=== PATIENT | female | born 1940 | race Caucasian/White ===

== ENCOUNTER 2018-05-18 11:01 | Emergency (ER) | payer MEDICARE, OTHER ==
[~2018-05-18] VITALS: Ht 152.4 cm; Wt 48.5 kg
[~2018-05-18 11:01] MED LIST: ALLO300 PO; ASPI81CH PO; AZIT250 PO; Bactrim Ds Tab1 EACH PO; CEPH500 PO; CHOL10002 PO; COLCHICINE0.6 MG PO; DIAZ2 PO; DIAZ5 PO; ESOM20 PO; IBUP600; LEVSOD100 PO; LEVSOD88 PO; LISI20 PO; METO5A PO; Macrodantin100 MG PO; Multivitamin1 EAC1 PO; NEXIUM PO; Nexium40 MG PO; OMEP20ER PO; OXYACE5T PO; OXYC5 PO; Omeprazole20 M1; PANT40 PO; PEG-3350 SOLU4000 ML PO; PROM25 PO; Roxicodone15 MG PO; Roxicodone5 MG PO; SILSUL1TC TOP; SUCR1SU PO; SULTRIDS PO; THYROID; TRAM50 PO; Ultram50 MG PO; Zofran Odt8 MG SL; Zofran8 MG PO; [UNRECOGNIZED DRUG - CODE] PO
== END 2018-05-18 12:50 | disposition home or self-care (01) ==
LOC: ER 11:01
DX: M79.642 Pain in left hand (principal); I25.10 Atherosclerotic heart disease of native coronary artery without angina pectoris; E03.9 Hypothyroidism, unspecified; Z88.6 Allergy status to analgesic agent; Z79.899 Other long term (current) drug therapy; Z86.73 Personal history of transient ischemic attack (TIA), and cerebral infarction without residual deficits
CPT/HCPCS: 29125; 73130; 84484; 93005; 93010; 99284-25

== ENCOUNTER 2018-06-20 19:41 | Emergency (ER) | payer MEDICARE, OTHER ==
[~2018-06-20] VITALS: Ht 152.4 cm; Wt 41.7 kg
[2018-06-20 20:38] LABS: BASOPHILS ABSOLUTE AUTO 0.08 K/mm3 (0.00-0.23); BASOPHILS PERCENT AUTO 1 % (0-2); EOSINOPHILS ABSOLUTE AUTO 0.08 K/mm3 (0.00-0.68); EOSINOPHILS PERCENT AUTO 1 % (0-6); Hematocrit 38.4 % (33.0-51.0); Hemoglobin 12.2 g/dL (11.5-16.0); IMMATURE GRAN ABSOLUTE AUTO 0.06 K/mm3 (0.00-0.10); IMMATURE GRAN PERCENT AUTO 1 % (0-1); LYMPHOCYTES ABSOLUTE AUTO 2.34 K/mm3 (0.84-5.20); LYMPHOCYTES PERCENT AUTO 19 % (21-46); MONOCYTES PERCENT AUTO 8 % (4-13); Mean Corpuscular HGB 28.7 pg (26.0-34.0); Mean Corpuscular HGB Conc 31.8 g/dL (31.5-36.5); Mean Corpuscular Volume 90 fL (80-100); Mean Platelet Volume 10.3 fL (9.1-12.4); NEUTROPHILS PERCENT AUTO 71 % (41-73); Platelet Count 311 K/mm3 (150-400); RDW Coefficient Variation 13.1 % (11.7-14.2); RDW Standard Deviation 42.9 fL (35.1-46.3); Red Blood Cell Count 4.25 M/mm3 (3.80-5.20); White Blood Cell Count 12.26 K/mm3 (4.00-11.30)
[2018-06-20 20:51] LABS: Alanine Aminotransfer (ALT/SGP 18 U/L (12-78); Albumin, Blood 3.3 g/dL (3.4-5.0); Albumin/Globulin Ratio 1.1 (0.8-1.8); Alk Phos 73 U/L (50-136); Anion Gap 11 mmol/L (6-16); Aspartate Aminotrans (AST/SGOT 21 U/L (12-37); Bilirubin, Total 0.3 mg/dL (0.1-1.0); Blood Urea Nitrogen 14 mg/dL (8-24); Bun/Creatinine Ratio 14.1 (12.0-20.0); CO2, Blood 21 mmol/L (21-32); Chloride, Blood 107 mmol/L (98-108); Creatinine, Blood 0.99 mg/dL (0.40-1.00); Globulin, Blood 3.1 g/dL (2.2-4.0); Glomerular Filtration Rate 57 (60-); Glucose, Blood 108 mg/dL (70-99); Potassium, Blood 3.7 mmol/L (3.5-5.5); Sodium, Blood 139 mmol/L (136-145); Total Protein, Blood 6.4 g/dL (6.4-8.2); Troponin I <0.015 ng/mL (0.000-0.040)
[2018-06-20 21:51] LABS: Source, Urine Catheter
[2018-06-20 21:53] LABS: Bilirubin, Urine Neg (Neg); Blood, Urine Neg (Neg); Glucose Qualitative, Urine Neg (Neg); Ketones, Urine Neg (Neg); Leukocyte Esterase, Urine Neg (Neg); Nitrite, Urine Neg (Neg); Protein, Urine Neg (Neg); Specific Gravity, Urine 1.015 (1.003-1.022); Urobilinogen, Urine NORM (Normal); pH, Urine 6.5 (5.0-8.0)
[2018-06-20 22:04] LABS: Appearance, Urine Clear (Clear); Color, Urine Yellow (P-Yellow)
[2018-06-21] MEDS ORDERED: ONDA4ODT MM (18:05)
[2018-06-21] MEDS ORDERED: TYLENOL325 MG PO (18:05)
== END 2018-06-20 23:12 | disposition home or self-care (01) ==
LOC: ER 19:41
PROVIDERS: Emergency Medicine
DX: R07.9 Chest pain, unspecified (principal); I25.10 Atherosclerotic heart disease of native coronary artery without angina pectoris; E03.9 Hypothyroidism, unspecified; Z88.6 Allergy status to analgesic agent; Z79.899 Other long term (current) drug therapy; Z86.73 Personal history of transient ischemic attack (TIA), and cerebral infarction without residual deficits
CPT/HCPCS: 71046; 80053; 81003; 84484; 85025; 93005; 93010; 99284-25

== ENCOUNTER 2018-10-06 16:56 | Emergency (ER) | payer MEDICARE, OTHER ==
[~2018-10-06] VITALS: Ht 152.4 cm; Wt 41.7 kg
[~2018-10-06 16:56] MED LIST changes: +ONDA4ODT MM; +TYLENOL325 MG PO
[2018-10-06 17:51] LABS: BASOPHILS ABSOLUTE AUTO 0.06 K/mm3 (0.00-0.23); BASOPHILS PERCENT AUTO 1 % (0-2); EOSINOPHILS ABSOLUTE AUTO 0.15 K/mm3 (0.00-0.68); EOSINOPHILS PERCENT AUTO 2 % (0-6); Hemoglobin 11.4 g/dL (11.5-16.0); IMMATURE GRAN ABSOLUTE AUTO 0.03 K/mm3 (0.00-0.10); IMMATURE GRAN PERCENT AUTO 0 % (0-1); LYMPHOCYTES ABSOLUTE AUTO 2.31 K/mm3 (0.84-5.20); LYMPHOCYTES PERCENT AUTO 26 % (21-46); MONOCYTES PERCENT AUTO 11 % (4-13); Mean Corpuscular HGB 28.1 pg (26.0-34.0); Mean Corpuscular HGB Conc 31.7 g/dL (31.5-36.5); Mean Corpuscular Volume 89 fL (80-100); NEUTROPHILS ABSOLUTE AUTO 5.25 K/mm3 (1.96-9.15); NEUTROPHILS PERCENT AUTO 60 % (41-73); RDW Coefficient Variation 12.5 % (11.7-14.2); RDW Standard Deviation 41.3 fL (35.1-46.3); Red Blood Cell Count 4.05 M/mm3 (3.80-5.20)
[2018-10-06 17:54] LABS: Source, Urine Catheter
[2018-10-06 18:02] LABS: Alanine Aminotransfer (ALT/SGP 11 U/L (12-78); Albumin, Blood 2.5 g/dL (3.4-5.0); Albumin/Globulin Ratio 0.6 (0.8-1.8); Alk Phos 72 U/L (50-136); Anion Gap 6 mmol/L (6-16); Aspartate Aminotrans (AST/SGOT 24 U/L (12-37); Bilirubin, Total 0.3 mg/dL (0.1-1.0); Blood Urea Nitrogen 11 mg/dL (8-24); Bun/Creatinine Ratio 12.7 (12.0-20.0); CO2, Blood 26 mmol/L (21-32); Calcium, Blood 8.7 mg/dL (8.5-10.1); Chloride, Blood 107 mmol/L (98-108); Creatinine, Blood 0.87 mg/dL (0.40-1.00); Globulin, Blood 3.9 g/dL (2.2-4.0); Glomerular Filtration Rate >60 (60-); Glucose, Blood 114 mg/dL (70-99); Sodium, Blood 139 mmol/L (136-145); Total Protein, Blood 6.4 g/dL (6.4-8.2)
[2018-10-06 18:04] LABS: Appearance, Urine Clear (Clear); Bilirubin, Urine Neg (Neg); Blood, Urine Neg (Neg); Color, Urine Yellow (P-Yellow); Glucose Qualitative, Urine Neg (Neg); Ketones, Urine Neg (Neg); Leukocyte Esterase, Urine Neg (Neg); Nitrite, Urine Neg (Neg); Protein, Urine Neg (Neg); Urobilinogen, Urine NORM (Normal)
[2018-10-06 18:06] LABS: Mean Platelet Volume 10.4 fL (9.1-12.4); Platelet Count 353 K/mm3 (150-400)
== END 2018-10-06 20:41 | disposition home or self-care (01) ==
LOC: ER 16:56
PROVIDERS: Emergency Medicine
DX: M10.9 Gout, unspecified (principal); Z88.8 Allergy status to other drugs, medicaments and biological substances; Z79.899 Other long term (current) drug therapy; K21.9 Gastro-esophageal reflux disease without esophagitis; I25.2 Old myocardial infarction
CPT/HCPCS: 80053; 81003; 85025; 93005; 93010; 96361; 96374; 96375; 96376; 99284-25; J1885; J3010; J7030; P9612

== ENCOUNTER 2018-10-28 07:31 | Emergency (ER) | payer MEDICARE, OTHER ==
[~2018-10-28] VITALS: Ht 154.9 cm; Wt 41.7 kg
[2018-10-28 08:37] LABS: BASOPHILS ABSOLUTE AUTO 0.06 K/mm3 (0.00-0.23); BASOPHILS PERCENT AUTO 1 % (0-2); EOSINOPHILS ABSOLUTE AUTO 0.11 K/mm3 (0.00-0.68); EOSINOPHILS PERCENT AUTO 1 % (0-6); Hematocrit 35.6 % (33.0-51.0); IMMATURE GRAN ABSOLUTE AUTO 0.03 K/mm3 (0.00-0.10); IMMATURE GRAN PERCENT AUTO 0 % (0-1); LYMPHOCYTES ABSOLUTE AUTO 1.55 K/mm3 (0.84-5.20); LYMPHOCYTES PERCENT AUTO 17 % (21-46); MONOCYTES ABSOLUTE AUTO 0.69 K/mm3 (0.16-1.47); MONOCYTES PERCENT AUTO 8 % (4-13); Mean Corpuscular HGB 27.7 pg (26.0-34.0); Mean Corpuscular HGB Conc 30.9 g/dL (31.5-36.5); Mean Corpuscular Volume 90 fL (80-100); Mean Platelet Volume 9.7 fL (9.1-12.4); NEUTROPHILS ABSOLUTE AUTO 6.71 K/mm3 (1.96-9.15); NEUTROPHILS PERCENT AUTO 73 % (41-73); Platelet Count 295 K/mm3 (150-400); Red Blood Cell Count 3.97 M/mm3 (3.80-5.20); White Blood Cell Count 9.15 K/mm3 (4.00-11.30)
[2018-10-28 08:58] LABS: Albumin, Blood 2.8 g/dL (3.4-5.0); Albumin/Globulin Ratio 0.8 (0.8-1.8); Bilirubin, Total 0.5 mg/dL (0.1-1.0); Bun/Creatinine Ratio 6.9 (12.0-20.0); Calcium, Blood 8.8 mg/dL (8.5-10.1); Creatinine, Blood 1.02 mg/dL (0.40-1.00); Globulin, Blood 3.5 g/dL (2.2-4.0); Potassium, Blood 3.2 mmol/L (3.5-5.5); Total Protein, Blood 6.3 g/dL (6.4-8.2)
[2018-10-28] MEDS ORDERED: Omeprazole20 M1 PO (09:40)
[2018-10-28 10:45] LABS: Source, Urine Clean Catch
[2018-10-28 10:50] LABS: Appearance, Urine Cloudy (Clear); Bilirubin, Urine Neg (Neg); Blood, Urine 1+ (Neg); Color, Urine Yellow (P-Yellow); Glucose Qualitative, Urine Neg (Neg); Ketones, Urine Neg (Neg); Leukocyte Esterase, Urine 3+ (Neg); Nitrite, Urine Neg (Neg); Protein, Urine Neg (Neg); Specific Gravity, Urine 1.015 (1.003-1.022); Urobilinogen, Urine NORM (Normal)
[2018-10-28 11:05] LABS: Bacteria Many /hpf; Red Blood Cells, Urine 0-2 /hpf (0-2); Squamous Epithelial Cells Many /hpf (Few)
== END 2018-10-28 12:31 | disposition home or self-care (01) ==
LOC: ER 07:31
PROVIDERS: Physician Assistant
DX: M16.11 Unilateral primary osteoarthritis, right hip (principal); M17.11 Unilateral primary osteoarthritis, right knee; Z88.8 Allergy status to other drugs, medicaments and biological substances; Z79.899 Other long term (current) drug therapy; K21.9 Gastro-esophageal reflux disease without esophagitis; I25.2 Old myocardial infarction
CPT/HCPCS: 36415; 73502; 73562-RT; 73700; 80053; 81001; 82550; 85025; 87077; 87086; 87186; 93005; 93010; 96374; 96375; 96376; 99284-25; J1170; J2270; J2405

== ENCOUNTER 2018-10-29 05:51 | Observation (INO) | payer MEDICARE, OTHER ==
[~2018-10-29] VITALS: Ht 157.5 cm; Wt 45.9 kg
[~2018-10-29 05:51] MED LIST changes: +Omeprazole20 M1 PO
[2018-10-29 07:24] LABS: Source, Urine Catheter
[2018-10-29 07:28] LABS: Appearance, Urine Hazy (Clear); Bilirubin, Urine Neg (Neg); Blood, Urine 2+ (Neg); Color, Urine Yellow (P-Yellow); Glucose Qualitative, Urine Neg (Neg); Ketones, Urine 1+ (Neg); Leukocyte Esterase, Urine 1+ (Neg); Nitrite, Urine Neg (Neg); Protein, Urine Neg (Neg); Specific Gravity, Urine 1.015 (1.003-1.022); Urobilinogen, Urine NORM (Normal)
[2018-10-29 07:40] LABS: BASOPHILS ABSOLUTE AUTO 0.05 K/mm3 (0.00-0.23); BASOPHILS PERCENT AUTO 1 % (0-2); EOSINOPHILS ABSOLUTE AUTO 0.01 K/mm3 (0.00-0.68); EOSINOPHILS PERCENT AUTO 0 % (0-6); Hematocrit 36.2 % (33.0-51.0); Hemoglobin 11.4 g/dL (11.5-16.0); IMMATURE GRAN ABSOLUTE AUTO 0.05 K/mm3 (0.00-0.10); IMMATURE GRAN PERCENT AUTO 1 % (0-1); LYMPHOCYTES ABSOLUTE AUTO 1.19 K/mm3 (0.84-5.20); LYMPHOCYTES PERCENT AUTO 14 % (21-46); MONOCYTES ABSOLUTE AUTO 1.01 K/mm3 (0.16-1.47); MONOCYTES PERCENT AUTO 12 % (4-13); Mean Corpuscular HGB 27.7 pg (26.0-34.0); Mean Corpuscular HGB Conc 31.5 g/dL (31.5-36.5); Mean Corpuscular Volume 88 fL (80-100); Mean Platelet Volume 9.8 fL (9.1-12.4); NEUTROPHILS ABSOLUTE AUTO 6.39 K/mm3 (1.96-9.15); NEUTROPHILS PERCENT AUTO 73 % (41-73); Platelet Count 300 K/mm3 (150-400); RDW Coefficient Variation 13.9 % (11.7-14.2); RDW Standard Deviation 45.1 fL (35.1-46.3); Red Blood Cell Count 4.11 M/mm3 (3.80-5.20)
[2018-10-29 07:58] LABS: Alanine Aminotransfer (ALT/SGP 16 U/L (12-78); Albumin, Blood 2.6 g/dL (3.4-5.0); Albumin/Globulin Ratio 0.7 (0.8-1.8); Alk Phos 85 U/L (50-136); Anion Gap 6 mmol/L (6-16); Aspartate Aminotrans (AST/SGOT 39 U/L (12-37); Bilirubin, Total 0.7 mg/dL (0.1-1.0); Blood Urea Nitrogen 12 mg/dL (8-24); CO2, Blood 29 mmol/L (21-32); Calcium, Blood 8.9 mg/dL (8.5-10.1); Chloride, Blood 105 mmol/L (98-108); Creatinine, Blood 0.92 mg/dL (0.40-1.00); Globulin, Blood 3.6 g/dL (2.2-4.0); Glomerular Filtration Rate >60 (60-); Glucose, Blood 104 mg/dL (70-99); Potassium, Blood 3.8 mmol/L (3.5-5.5); Sodium, Blood 140 mmol/L (136-145); Total Protein, Blood 6.2 g/dL (6.4-8.2)
[2018-10-29 08:08] LABS: Bacteria Many /hpf; Squamous Epithelial Cells Few /hpf (Few)
--- NOTE | 2018-10-29 15:26 | NUR ---
On 10/29/18 @8010 this patient gave this nursing care partner verbal consent to access chart as well as care for her on 10/30/18 from [id number]
[2018-10-30 05:06] LABS: BASOPHILS ABSOLUTE AUTO 0.04 K/mm3 (0.00-0.23); BASOPHILS PERCENT AUTO 0 % (0-2); EOSINOPHILS ABSOLUTE AUTO 0.02 K/mm3 (0.00-0.68); EOSINOPHILS PERCENT AUTO 0 % (0-6); Hematocrit 32.2 % (33.0-51.0); IMMATURE GRAN ABSOLUTE AUTO 0.05 K/mm3 (0.00-0.10); IMMATURE GRAN PERCENT AUTO 1 % (0-1); LYMPHOCYTES ABSOLUTE AUTO 1.24 K/mm3 (0.84-5.20); LYMPHOCYTES PERCENT AUTO 11 % (21-46); MONOCYTES ABSOLUTE AUTO 1.06 K/mm3 (0.16-1.47); MONOCYTES PERCENT AUTO 10 % (4-13); Mean Corpuscular HGB 27.5 pg (26.0-34.0); Mean Corpuscular HGB Conc 31.1 g/dL (31.5-36.5); Mean Corpuscular Volume 89 fL (80-100); Mean Platelet Volume 10.2 fL (9.1-12.4); NEUTROPHILS ABSOLUTE AUTO 8.46 K/mm3 (1.96-9.15); NEUTROPHILS PERCENT AUTO 78 % (41-73); Platelet Count 284 K/mm3 (150-400); RDW Standard Deviation 45.6 fL (35.1-46.3); Red Blood Cell Count 3.63 M/mm3 (3.80-5.20); White Blood Cell Count 10.87 K/mm3 (4.00-11.30)
--- NOTE | 2018-10-30 05:07 | NUR ---
ORCHARD PRUNER SUMMARY NO ACUTE CHANGES THIS SHIFT. PT AAOX3 AND COOPERATIVE WITH CARE. VERY PAINFUL IN BILATERAL LEGS, ESPECIALLY THE KNEES. PT REPORTS PAIN IS CAUSED BY FALL SHE HAD AT HOME. GIVEN OXYCODONE X2 THIS SHIFT WITH GOOD PAIN RELIEF. PAIN PREVENTS PT FROM AMBULATING. ROLDNA IN PLACE, PATENT AND DRAINING. VSS, WILL CONTINUE TO MONITOR.
[2018-10-30 05:30] LABS: Anion Gap 5 mmol/L (6-16); Blood Urea Nitrogen 10 mg/dL (8-24); Bun/Creatinine Ratio 12.7 (12.0-20.0); CO2, Blood 29 mmol/L (21-32); Calcium, Blood 8.3 mg/dL (8.5-10.1); Chloride, Blood 103 mmol/L (98-108); Creatinine, Blood 0.79 mg/dL (0.40-1.00); Glomerular Filtration Rate >60 (60-); Glucose, Blood 124 mg/dL (70-99); Potassium, Blood 3.8 mmol/L (3.5-5.5); Sodium, Blood 137 mmol/L (136-145)
--- NOTE | 2018-10-30 15:42 | NUR ---
Mrs. Ladd was alone in room. She appears quite frail and physically fragile. She told me she is hospitalized "because I fell." She says she lives in constant pain. Per chart, she is listed as Quaker, but she declined my offer of prayer. Once I established rapport, I broached the subject of her code status. She stated "if God wants to take me, let me go." She says she does not want CPR and is not afraid of . I presented the question of code status in several ways. She remained consistant--she does not want CPR. Iasked RN to verify. At that point, Mrs. Ladd reversed her decision. Perhaps this topic would be better discussed with family present. I will remain available.
--- NOTE | 2018-10-30 20:33 | NUR ---
SUMMARY- PT ALERT TO SELF AND FAMILY. FOLLOWS COMMANDS, RESISTANT TO NURSING CARE RELATED TO PAIN AND DOESN'T WANT TO BE MOVED. DECLINES TO EAT, AND HAS TO BE FED AND ASSISTED WITH MOST ORAL INTAKE. PT STATED HER PAIN WAS A 7 AT ONE POINT BUT DECLINED PAIN MEDS. DAUGHTER LATER TOLD ME THAT SHE THOUGHT IF SHE NEEDED PAIN MEDS SHE WOULDN'T BE ABLE TO GO HOME. SO SHE AGREED TO TAKE PAIN MEDS JUST BEFORE DINNER. JAMAR GUTIERREZ'Chanell AT THIS TIME, HAD NO DR'S ORDER. PLACED IN ED RELATED TO PAIN. HASN'T VOIDED YET. PT HAD FEVER 100.2 THIS EVENING, DR CHRISTY AWARE.
--- NOTE | 2018-10-31 04:45 | NUR ---
SHIFT SUMMARY THE PATIENT PRESENTED THIS SHIFT WITH VITALS WNL, A&O TO SELF AND WITH LUNGS THAT WERE CLEAR. THE PATIENTDISPLAYED SOME CONFUSION THIS SHIFT. THE PATIENT ASKED TO BE PLACED ON A BED ACOSTA FOR URINATION, BUT DID NOT PASS ANY URINE. THE PATIENT COMPLAINED OF BAD PAIN AND WAS GIVEN MEDICATIONS PER E-MAR. THE PATIENT HAS SLEPT MOST OF THE SHIFT. THE PATIENT IS RESTING AT THIS TIME, WILL CONTINUE TO MONITOR.
[2018-10-31] MEDS ORDERED: ACET325 PO (13:48)
[2018-10-31] MEDS ORDERED: DOCU100 PO (13:50)
[2018-10-31] MEDS ORDERED: CEPH500 PO (13:51)
--- NOTE | 2018-10-31 18:32 | NUR ---
1400 PATIENT TO DISCHARGE. HAD IV REMOVED WITH NO SS OF INFECTION. NURSE WENT OVER MEDS AND DISCHARGE PAPERS WITH PATIENT AND DAUGHTERS. MEDS FAXED INTO PHARMACY OF CHOICE. PATIENT DRESSED BY FAMILY. PATIENT TAKEN HOME VIA STRETCHER.
[2018-11-01] MEDS ORDERED: COLCHICINE0.6 MG PO (21:28)
[2018-11-01] MEDS ORDERED: PRED20 PO (21:29)
== END 2018-10-31 17:20 | disposition home health service (06) ==
LOC: ER 05:51 → MEDS 05:52
PROVIDERS: Emergency Medicine; Student in an Organized Health Care Education/Training Program; ADMIT Internal Medicine
DX: N39.0 Urinary tract infection, site not specified (principal); M17.11 Unilateral primary osteoarthritis, right knee; M16.11 Unilateral primary osteoarthritis, right hip; R62.7 Adult failure to thrive; B30.9 Viral conjunctivitis, unspecified; G89.29 Other chronic pain; M62.838 Other muscle spasm; R29.6 Repeated falls; E03.9 Hypothyroidism, unspecified; I25.2 Old myocardial infarction; K21.9 Gastro-esophageal reflux disease without esophagitis; Z87.11 Personal history of peptic ulcer disease; Z79.891 Long term (current) use of opiate analgesic; Z68.1 Body mass index [BMI] 19.9 or less, adult; Z88.6 Allergy status to analgesic agent; Z79.899 Other long term (current) drug therapy; Z98.890 Other specified postprocedural states
CPT/HCPCS: 36415; 51702; 70450; 80048; 80053; 81001; 85025; 87077; 87086; 87186; 93005; 93010; 96360-59; 96361; 96361-59; 96365; 96372; 97110; 97162; 97530; 99285-25; G0378; J0696; J1650; J7030; J7120

== ENCOUNTER 2018-11-01 14:52 | Observation (INO) | payer MEDICARE, OTHER ==
[~2018-11-01] VITALS: Ht 154.9 cm; Wt 45.4 kg
[~2018-11-01 14:52] MED LIST changes: +ACET325 PO; +DOCU100 PO
--- NOTE | 2018-11-01 18:27 | NUR ---
1807 PT ARRIVED TO MEDICAL FLOOR VIA GURNEY, TRANSFERED TO BED WITH 4 STAFF AND SLIDER SHEET. PT IN PAIN, MOANING. PAIN INCREASING WITH MOVEMENT. NO FAMILY WITH PT AT TIME OF ADMIT.
--- NOTE | 2018-11-01 18:48 | NUR ---
PT DAUGHTER LEFT PT'S PURSE IN BEDSIDE DRAWER.
[2018-11-01] MEDS ORDERED: COLCHICINE0.6 MG PO (21:28)
[2018-11-01] MEDS ORDERED: PRED20 PO (21:29)
--- NOTE | 2018-11-02 06:50 | NUR ---
SHIFT SUMMARY: PT HAS CHRONIC, CONSTANT PAIN THAT WORSENS WITH MOVEMENT. PT HAS VERY LIMITED MOVEMENT D/T STIFFNESS/RIGIDITY/PAIN. PT IS ALERT, LETHARGIC/DROWSY. DIET CHANGED TO MECH SOFT FROM REG PT HAS NO TEETH. SEVERAL INCONTINENT EPSIDOES, NO SKIN BREAK DOWN ASSESSED, BARRIER CREAM APPLIED. MEDS WHOLE IN APPLESAUCE. FENTANYL PATCH TO R SHOULDER, LIDOCAINE PATCH TO R FT AND L HIP, AND OXY 10 MG Q4H ADMINISTERED. WILL CONT TO MONITOR AND PROVIDE CARE UNTIL PRESUEMD BY ONCOMING RN.
--- NOTE | 2018-11-02 07:45 | NUR ---
PT A/O C/O PAIN. STATES NOTHING WE DO BRINGS DOWN PAIN. STAYS 9-10 NO MATTER WHAT. SO EVEN THO TAKES PAIN MED,DOES NOT DO MUCH GOOD. H/R REG, NO MURMER NOTED. NO TEL. LUNGS CLEAR, REWP EASY,UNLABORED. TALKING 5-6 WORD SENTENCES. TALKS SLOWLY, BUT CLEARLY. COMPLAINS ABOUT BEING RUSHED. ATTEMPTS TO HOLD YOU THERE TO TALK MORE. ON R.A. BT X4 LAST BM YEST. VOIDS ATTENDS. 2 ASST TO BSC. BUT AFTER 20 MIN ON BSC, NO VOIDS. SHE CONTINUED TO ASK FOR LONGER TIME ON BSC. ADVISED MUST GET OFF AND BACK TO BED. PUT BACK TO BED. NO OTHER CONCERNS T THIS TIME. BED IN LOW POSITION, CALL LITE IN REACH, BED ALARM ON FOR SAFETY
--- NOTE | 2018-11-02 16:48 | NUR ---
PT CONFUSED. THINKS PRESIDENT IS JOSE LUIS. ABLE TO TELL ME IS OCTOBER, BUT THINKS IS 1919. HAD TRIED TO GO HOME. DECIDED TO STAY ONE MORE DAY AT MY INSISTANCE. WHEN TOLD PRESIDENT IS NOT JOSE LUIS. SAID IS AN OLD GOAT, CROOK. BUT NOT ABLE TO DESCRIBE ANY FURTHER. TALKED ABOUT HER TWO JULIANNA DOGS. STATES KNEES STILL HURT A LITTLE, BUT NOT TOO BAD. BED IN LOW POSITION, CALL LITE IN REACH, BED ALARM ON FOR SAFETY
--- NOTE | 2018-11-02 18:47 | NUR ---
PT PLEASANT ANXOIUS TODAY. DID STATES WAS LEAVING. DID AGREE TO STAY. C/O TASTE OF FOOD. DID JUST MEDICATE AGAIN FOR PAIN. STATES IS BETTER SINCE ADMIT. BED IN LOW POSITION, CALL LITE IN REACH, BED ALARM ON FOR SAFETY
--- NOTE | 2018-11-03 05:24 | NUR ---
SHIFT SUMMARY: PT REPORTS PAIN HAS BEEN BETTER MANAGED AND REPORTS IT IS "EASIER TO MOVE". 2 PERS MAX ASSIST TO BSC; PT STIFF AND RIGID-LIKE. A&O, LETHARGIC/DROWSY. ABLE TO SPEAK IN SMALL SENTENCES BEFORE DRIFTING OFF. ADMINISTERED PRN OXYCODONE 10MG 1X THIS SHIFT, AND SCHEDUELD DECADRON. LS DIM. RESP E/U ON ROOM AIR. MEDS WHOLE IN APPLESAUCE. MECH SOFT DIET, PT REFUSED TO EAT DINNER BECAUSE IT IS "DISGUSTING, MY DOG WOULDN'T EVEN EAT IT!" PT GIVEN 2 CUPS OF ICECREAM, YOGURT, AND PUDDING PER REQUEST. SKIN IS C/D/I. LIDOCAINE PATCHES TO BILATERAL HIPS. NO OTHER CHANGES TO REPORT; WILL CONT TO MONITOR AND PROVIDE CARE UNTIL PRESUMED BY ONCOMING RN.
--- NOTE | 2018-11-03 16:46 | NUR ---
SHIFT SUMMARY NO ACUTE CHANGES. PATIENT MEDICATED X 2 FOR PAIN THIS SHIFT, DENIES NAUSEA OR SHORTNESS OF BREATH. PATIENT STATED TO DOCTOR THAT SHE DID NOT FEEL ABLE TO GO HOME TODAY. PATIENT VERY WEAK, TWO MAX ASSIST WITH GAIT BELT AND FWW TO BS. CALL LIGHT IN REACH, WILL CONTINUE TO MONITOR.
--- NOTE | 2018-11-04 06:31 | NUR ---
SHIFT SUMMARY: NO ACUTE CHANGES THIS SHIFT. TREATED FOR PAIN 2X THIS SHIFT c 10 MG OXYCODONE. MEDS WHOLE IN APPLESAUCE. 2 PER MAX ASSIST TO BSC. WILL CONT TO MONITOR AND PROVIDE CARE UNTIL PRESUMED BY ONCOMING RN.
[2018-11-04] MEDS ORDERED: FENTANYL1 EAC1 TOP (10:18)
[2018-11-04] MEDS ORDERED: LIDOCARE1 EACH TOP (10:22)
--- NOTE | 2018-11-04 11:25 | NUR ---
DISCHARGE DISCHARGE INSTRUCTIONS, MEDICATION LIST AND FOLLOW UP APPOINTMENTS REVIEWED WITH PT. QUESTIONS/CONCERNS ANSWERED. PT'S DAUGHTER CALLED WITH TRANSPORTATION TIME SO SHE CAN MEET PT AT HER HOME. SCRIP FOR FENTANLY PATCHES GIVEN TO PT AND OTHER NEW SCRIPS FAXED TO [facility] ON [address] PER PT PREFERENCE. TRANSPORTATION ARRANGED WITH [facility]. WAITING FOR RIDE AT THIS TIME.
--- NOTE | 2018-11-04 11:40 | NUR ---
DISCHARGE PT ESCORTED OUT VIA W/C WITH TRANSLINK
== END 2018-11-04 11:40 | disposition home health service (06) ==
LOC: ER 14:52 → MEDS 14:53
PROVIDERS: ADMIT Internal Medicine
DX: M17.0 Bilateral primary osteoarthritis of knee (principal); G89.4 Chronic pain syndrome; M54.5 Low back pain; M16.0 Bilateral primary osteoarthritis of hip; N39.0 Urinary tract infection, site not specified; B96.20 Unspecified Escherichia coli [E. coli] as the cause of diseases classified elsewhere; R62.7 Adult failure to thrive; K27.9 Peptic ulcer, site unspecified, unspecified as acute or chronic, without hemorrhage or perforation; E03.9 Hypothyroidism, unspecified; Z79.899 Other long term (current) drug therapy; Z79.891 Long term (current) use of opiate analgesic; Z88.6 Allergy status to analgesic agent
CPT/HCPCS: 93005; 93010; 96361; 96372; 96374; 97162; 97530; 99285-25; G0378; J1170; J1650; J7030

== ENCOUNTER 2019-02-22 21:01 | Emergency (ER) | payer MEDICARE, OTHER ==
[~2019-02-22] VITALS: Ht 152.4 cm; Wt 40.8 kg
[~2019-02-22 21:01] MED LIST changes: +FENTANYL1 EAC1 TOP; +LIDOCARE1 EACH TOP; +PRED20 PO
[2019-02-22 21:35] LABS: BASOPHILS ABSOLUTE AUTO 0.06 K/mm3 (0.00-0.23); BASOPHILS PERCENT AUTO 1 % (0-2); EOSINOPHILS ABSOLUTE AUTO 0.09 K/mm3 (0.00-0.68); EOSINOPHILS PERCENT AUTO 1 % (0-6); Hematocrit 34.8 % (33.0-51.0); Hemoglobin 10.9 g/dL (11.5-16.0); IMMATURE GRAN ABSOLUTE AUTO 0.05 K/mm3 (0.00-0.10); IMMATURE GRAN PERCENT AUTO 1 % (0-1); LYMPHOCYTES PERCENT AUTO 28 % (21-46); MONOCYTES ABSOLUTE AUTO 0.86 K/mm3 (0.16-1.47); MONOCYTES PERCENT AUTO 11 % (4-13); Mean Corpuscular HGB Conc 31.3 g/dL (31.5-36.5); Mean Corpuscular Volume 86 fL (80-100); Mean Platelet Volume 10.3 fL (9.1-12.4); NEUTROPHILS ABSOLUTE AUTO 4.71 K/mm3 (1.96-9.15); NEUTROPHILS PERCENT AUTO 59 % (41-73); Platelet Count 310 K/mm3 (150-400); RDW Coefficient Variation 14.4 % (11.7-14.2); RDW Standard Deviation 45.4 fL (35.1-46.3); Red Blood Cell Count 4.03 M/mm3 (3.80-5.20); White Blood Cell Count 7.97 K/mm3 (4.00-11.30)
[2019-02-22] MEDS ORDERED: COLCRYS0.6 MG PO (21:43)
[2019-02-22 21:55] LABS: Alanine Aminotransfer (ALT/SGP 20 U/L (12-78); Albumin, Blood 3.1 g/dL (3.4-5.0); Albumin/Globulin Ratio 1.1 (0.8-1.8); Alk Phos 129 U/L (50-136); Anion Gap 8 mmol/L (6-16); Aspartate Aminotrans (AST/SGOT 50 U/L (12-37); Bilirubin, Total 0.3 mg/dL (0.1-1.0); Blood Urea Nitrogen 8 mg/dL (8-24); Bun/Creatinine Ratio 9.8 (12.0-20.0); CO2, Blood 26 mmol/L (21-32); Calcium, Blood 8.4 mg/dL (8.5-10.1); Chloride, Blood 110 mmol/L (98-108); Creatinine, Blood 0.81 mg/dL (0.40-1.00); Globulin, Blood 2.9 g/dL (2.2-4.0); Glomerular Filtration Rate >60 (60-); Glucose, Blood 86 mg/dL (70-99); Potassium, Blood 3.2 mmol/L (3.5-5.5); Sodium, Blood 144 mmol/L (136-145); Troponin I <0.015 ng/mL (0.000-0.040)
== END 2019-02-23 03:00 | disposition home or self-care (01) ==
LOC: ER 21:01
PROVIDERS: Emergency Medicine
DX: S70.01XA Contusion of right hip, initial encounter (principal); E87.6 Hypokalemia; R07.9 Chest pain, unspecified; W18.30XA Fall on same level, unspecified, initial encounter; Z88.6 Allergy status to analgesic agent; Z79.899 Other long term (current) drug therapy; Z79.52 Long term (current) use of systemic steroids; Z79.891 Long term (current) use of opiate analgesic; K21.9 Gastro-esophageal reflux disease without esophagitis; I25.2 Old myocardial infarction
CPT/HCPCS: 36415; 71046; 72192; 73502; 80053; 84484; 85025; 93005; 93010; 96374; 96375; 99285-25; J2405; J3010

== ENCOUNTER 2019-02-23 19:40 | Emergency (ER) | payer MEDICARE, OTHER ==
[~2019-02-23] VITALS: Ht 152.4 cm; Wt 37.2 kg
[~2019-02-23 19:40] MED LIST changes: +COLCRYS0.6 MG PO
[2019-02-23 20:40] LABS: Alanine Aminotransfer (ALT/SGP 32 U/L (12-78); Albumin, Blood 3.3 g/dL (3.4-5.0); Albumin/Globulin Ratio 0.9 (0.8-1.8); Alk Phos 148 U/L (50-136); Anion Gap 6 mmol/L (6-16); Aspartate Aminotrans (AST/SGOT 57 U/L (12-37); Bilirubin, Total 0.3 mg/dL (0.1-1.0); Blood Urea Nitrogen 11 mg/dL (8-24); Bun/Creatinine Ratio 13.5 (12.0-20.0); CO2, Blood 26 mmol/L (21-32); Calcium, Blood 9.3 mg/dL (8.5-10.1); Chloride, Blood 111 mmol/L (98-108); Creatinine, Blood 0.81 mg/dL (0.40-1.00); Globulin, Blood 3.7 g/dL (2.2-4.0); Glomerular Filtration Rate >60 (60-); Glucose, Blood 91 mg/dL (70-99); Potassium, Blood 4.2 mmol/L (3.5-5.5); Sodium, Blood 143 mmol/L (136-145); Troponin I <0.015 ng/mL (0.000-0.040)
== END 2019-02-23 22:24 | disposition home or self-care (01) ==
LOC: ER 19:40
PROVIDERS: Emergency Medicine
DX: R07.2 Precordial pain (principal); Z88.6 Allergy status to analgesic agent; Z79.899 Other long term (current) drug therapy; Z79.52 Long term (current) use of systemic steroids; Z79.891 Long term (current) use of opiate analgesic; K21.9 Gastro-esophageal reflux disease without esophagitis; I25.2 Old myocardial infarction
CPT/HCPCS: 80053; 83690; 84484; 93005; 93010; 96374; 99284-25; J2405

== ENCOUNTER → 2020-07-14 | Outpatient (CLI) | payer MEDICARE, OTHER | END | disposition home or self-care (01) | LOC: LAB SHORT 15:20 → LAB 15:20 → EDSTATUS 07-09 09:20 → LAB FUT 07-09 09:20 | DX: A31.0 Pulmonary mycobacterial infection (principal) | CPT/HCPCS: 87015; 87116; 87206 ==

== ENCOUNTER → 2020-07-16 | Outpatient (CLI) | payer MEDICARE, OTHER | LOC: LAB 12:44 → LAB SHORT 12:44 | DX: R91.8 Other nonspecific abnormal finding of lung field (principal) | CPT/HCPCS: 87070; 87205 ==

== ENCOUNTER → 2020-07-17 | Outpatient (CLI) | payer MEDICARE, OTHER | END | disposition home or self-care (01) | LOC: OLS 11:52 → LAB SHORT 11:52 | DX: R91.8 Other nonspecific abnormal finding of lung field (principal) | CPT/HCPCS: 87070; 87205 ==

== ENCOUNTER → 2020-07-20 | Outpatient (CLI) | payer MEDICARE, OTHER | END | disposition home or self-care (01) | LOC: LAB 10:41 → LAB SHORT 10:41 | DX: R94.2 Abnormal results of pulmonary function studies (principal) | CPT/HCPCS: 87070; 87205 ==

== ENCOUNTER 2020-10-22 16:09 | Emergency (ER) | payer MEDICARE, OTHER ==
[~2020-10-22] VITALS: Ht 152.4 cm; Wt 44.9 kg
[~2020-10-22 16:09] MED LIST changes: +LIDOCAINE1 EAC1 TOP; -LIDOCARE1 EACH TOP; +OXYC15ER PO; -Roxicodone15 MG PO
[2020-10-22] MEDS ORDERED: ALLO100 PO (16:21)
== END 2020-10-22 19:41 | disposition home or self-care (01) ==
LOC: ER 16:09
DX: M10.9 Gout, unspecified (principal); I25.2 Old myocardial infarction; Z88.6 Allergy status to analgesic agent; Z79.899 Other long term (current) drug therapy
CPT/HCPCS: 99283; A9270

== ENCOUNTER 2020-10-23 16:50 | Inpatient (IN) | payer MEDICARE, OTHER ==
[~2020-10-23] VITALS: Ht 152.4 cm; Wt 44.1 kg
[~2020-10-23 16:50] MED LIST changes: +ALLO100 PO
[2020-10-23 18:56] LABS: BASOPHILS ABSOLUTE AUTO 0.05 K/mm3 (0.00-0.23); BASOPHILS PERCENT AUTO 0 % (0-2); EOSINOPHILS ABSOLUTE AUTO 0.01 K/mm3 (0.00-0.68); EOSINOPHILS PERCENT AUTO 0 % (0-6); Hematocrit 38.5 % (33.0-51.0); Hemoglobin 12.1 g/dL (11.5-16.0); IMMATURE GRAN ABSOLUTE AUTO 0.09 K/mm3 (0.00-0.10); IMMATURE GRAN PERCENT AUTO 1 % (0-1); LYMPHOCYTES ABSOLUTE AUTO 2.13 K/mm3 (0.84-5.20); LYMPHOCYTES PERCENT AUTO 14 % (21-46); MONOCYTES ABSOLUTE AUTO 2.09 K/mm3 (0.16-1.47); MONOCYTES PERCENT AUTO 14 % (4-13); Mean Corpuscular HGB 27.7 pg (26.0-34.0); Mean Corpuscular HGB Conc 31.4 g/dL (31.5-36.5); Mean Corpuscular Volume 88 fL (80-100); Mean Platelet Volume 10.1 fL (9.1-12.4); NEUTROPHILS ABSOLUTE AUTO 10.42 K/mm3 (1.96-9.15); NEUTROPHILS PERCENT AUTO 71 % (41-73); Platelet Count 315 K/mm3 (150-400); RDW Coefficient Variation 13.2 % (11.7-14.2); RDW Standard Deviation 43.4 fL (35.1-46.3); Red Blood Cell Count 4.37 M/mm3 (3.80-5.20); White Blood Cell Count 14.79 K/mm3 (4.00-11.30)
[2020-10-23 19:15] LABS: Alanine Aminotransfer (ALT/SGP 13 U/L (12-78); Albumin/Globulin Ratio 0.7 (0.8-1.8); Alk Phos 87 U/L (50-136); Anion Gap 4 mmol/L (6-16); Aspartate Aminotrans (AST/SGOT 14 U/L (12-37); Bilirubin, Total 0.6 mg/dL (0.1-1.0); Blood Urea Nitrogen 10 mg/dL (8-24); Bun/Creatinine Ratio 13.5 (12.0-20.0); CO2, Blood 30 mmol/L (21-32); Calcium, Blood 9.1 mg/dL (8.5-10.1); Chloride, Blood 101 mmol/L (98-108); Creatinine, Blood 0.74 mg/dL (0.40-1.00); Globulin, Blood 4.1 g/dL (2.2-4.0); Glomerular Filtration Rate >60 (60-); Glucose, Blood 117 mg/dL (70-99); Potassium, Blood 3.1 mmol/L (3.5-5.5); Sodium, Blood 135 mmol/L (136-145); Total Protein, Blood 7.1 g/dL (6.4-8.2)
[2020-10-23 20:21] LABS: Lymphs, Synovial Fluid 3 % (0-15); Monocytes/Macrophages, Synovia 2 % (0-65); Neutrophils, Synovial Fluid 95 % (0-24)
[2020-10-23 20:37] LABS: Body Fluid Crystals POS (NEGATIVE)
[2020-10-23 20:42] LABS: RBC Count, Synovial Fluid 9000 /mm3 (0-0)
[2020-10-23 20:55] LABS: WBC Count, Synovial Fluid 40220 /mm3 (0-180)
[2020-10-23 21:02] LABS: Appearance, Synovial Fluid Cloudy (Clear); Color, Synovial Fluid Yellow (None-P Yel)
[2020-10-23 21:07] LABS: BODY FLUID RBC 0.009 M/mm3 (0-0)
[2020-10-23 21:40] LABS: Lactate Dehydrogenase, Body Fl 786 U/L
--- NOTE | 2020-10-24 00:14 | NUR ---
PATIENT IS A NEW ADMIT FROM THE ED. THREE PERSON TRANSFER FROM [facility] TO BED. AXOX 3 FORGETFUL AND ONE ASSIST STAND PIVOT TO [facility]. REPORTED RIGHT KNEE PAIN ELEVATING SINCE ADMIT UP TO 04/26. ON ROOM AIR. DENIES SOB AND N/V. KLETSEL DEHE [place] AND NO DENTURES PRESENT; REPORTS AT HOME. ED RN REPORTS DR ADDISON WALSH CONSULT FOR AM CALLED IN. PATIENT REPORTS NO CHOCOLATE WITH HX OF GOUT. ORIENTED TO ROOM AND CALL LIGHT SYSTEM. NS FINISHING INFUSING FROM THE ED AND IV ROCEPH. CALL LIGHT IN REACH.
--- NOTE | 2020-10-24 00:20 | NUR ---
IV VANCO STARTED FOLLOWED BY NS KCL 20 mEq @100 ML/HR X ONE BAG. OXCODONE 15 MG GIVEN FOR RIGHT KNEE PAIN PER EMAR. PATIENT REPORTS NO TV AND SHE IS READY FOR BED. WARM BLANKET PROVIDED.
--- NOTE | 2020-10-24 03:41 | NUR ---
SHIFT SUMMARY PATIENT HAD NO ACUTE CHANGES OBSERVED. AXOX 3 AND BEDREST. USING BEDPAN AFTER PATIENT TOO WEAK TO STAND PIVOT TO BSC. [place] AND NO DENTURES IN PLACE LEAVING AT HOME. PIV REMAINS INTACT. IV VANCO INFUSED. NS-KCL 20 mEq INFUSING AT 100 mL/HR X ONE BAG. TAKES MEDICATION WHOLE WITH WATER. DR JAIME CONSULT FOR AM PER ED RN. REPORTED RIGHT KNEE PAIN X ONE AND OXYCODONE 15 MG GIVEN PER EMAR. VSS/AFEBRILE. DENIES SOB AND N/V. CALL LIGHT IN REACH. BED IN LOWEST POSITION AND ALARM ACTIVATED. WILL CONTINUE TO MONITOR UNTIL DAY SHIFT NURSE ASSUMES CARE.
[2020-10-24 04:52] LABS: Hematocrit 35.6 % (33.0-51.0); Hemoglobin 10.9 g/dL (11.5-16.0); Mean Corpuscular HGB 27.5 pg (26.0-34.0); Mean Corpuscular HGB Conc 30.6 g/dL (31.5-36.5); Mean Corpuscular Volume 90 fL (80-100); Mean Platelet Volume 10.3 fL (9.1-12.4); Platelet Count 286 K/mm3 (150-400); RDW Coefficient Variation 13.3 % (11.7-14.2); RDW Standard Deviation 44.3 fL (35.1-46.3); Red Blood Cell Count 3.96 M/mm3 (3.80-5.20); White Blood Cell Count 9.83 K/mm3 (4.00-11.30)
[2020-10-24 05:10] LABS: Anion Gap 6 mmol/L (6-16); Blood Urea Nitrogen 10 mg/dL (8-24); Bun/Creatinine Ratio 13.1 (12.0-20.0); CO2, Blood 28 mmol/L (21-32); Calcium, Blood 8.2 mg/dL (8.5-10.1); Chloride, Blood 108 mmol/L (98-108); Creatinine, Blood 0.76 mg/dL (0.40-1.00); Glomerular Filtration Rate >60 (60-); Glucose, Blood 95 mg/dL (70-99); Sodium, Blood 142 mmol/L (136-145)
--- NOTE | 2020-10-24 07:45 | NUR ---
ASSUMED CARE OF PT- BEDSIDE REPORT COMPLETED WITH NIGHT RN HORACIO. PT ON THE BEDPAN AT THAT TIME AND STATED IT WASN'T "GOING TO WORK." ASSISTED THE PT TO BSC. PT HAD A SMALL MUCUSY LIGHT BROWN STOOL WITH SOME JELLY LIKE SUBSTANCE TO IT. PHILIP CARE PROVIDED NEW ATTENDS SOME STOOL WAS INCONTINENT. SPOKE TO DR WINKLER AND SHE IS AWARE OF THE LOOSE STOOL. NO ADDITIONAL ODOR TO THE STOOL WAS NOTED. WILL CT. RECIEVED A CALL FROM LILLIAM IN PHARMACY TO CLARIFY A DRUG ORDER. SPOKE TO DR WINKLER AND SHE CLARIFIED, PASSED ON TO [facility]ON[facility]AS.
--- NOTE | 2020-10-24 09:43 | NUR ---
RECIEVED A CALL FROM DR JAIME- PT OK TO EAT TODAY NPO AFTER MIDNIGHT FOR PROCEDURE TOMORROW.
--- NOTE | 2020-10-24 18:12 | NUR ---
SHIFT SUMMARY- PT ALERT AND ORIENTED TO SELF AND FAMILY. PT TENDS TO GET A BIT ANXIOUS AT TIMES. DAUGHTER CAME TO VISIT HER TODAY AND BROUGHT A LIST PHONE NUMBERS FOR THE PT SHE WAS VERY CONCERNED SHE COULD NOT CALL PEOPLE (TH EPT WAS CONCERNED) PT COULD NOT REMEMBER ANY CONTACT NUMBERS. PT WAS SEEN BY DR JAIME THIS EVENING WHO DRAINED HER KNEE. DR JAIME PLACED A CATH IN THE PT KNEE SO SHE CAN RETURN AND DRAIN IT AGAIN TOMORROW WITHOUT POKING THE PT AGAIN. DRESSED THE WOUND WITH JOSSUE AND A SLEEVE. PT IS NWB ON THE RLE, SHE IS UNABLE TO USE THE BEDPAN SO BEDSIDE COMMODE WITH 2P MAX ASSIST HAS BEEN DONE FREQUENTLY T/O THE DAY. PT HAS HAD SOME LOOSE STOOLS, DR IS AWARE. MEDICATED FOR PAIN ONCE THIS SHIFT PRN. PT IN BED CALL LIGHT IN REACH NO S&S OF DISTRESS. WILL CTM AND PASS ON TO AFFILIATE MARKETING MANAGER.
[2020-10-24 22:21] LABS: Vancomycin, Trough 5.7 ug/mL (5.0-10.0)
--- NOTE | 2020-10-25 03:42 | NUR ---
SHIFT SUMMARY PATIENT HAD NO ACUTE CHANGES OBSERVED. AXOX 3 AND TWO ASSIST TO BSC. RIGHT LEG NON-WEIGHT BEARING. NPO AFTER MIDNIGHT. DR JAIME BACK IN TODAY 10/25 FOR ASPIRATION OF R. KNEE. DR JAIME LEFT DRAIN ACCESS IN PLACE AND WRAPPED KNEE. PIV REMAINS INTACT. IV ABX INFUSED X TWO. REPORTED RIGHT KNEE PAIN AND OXYCODONE 15 MG GIVEN PER EMAR. NAUSEOUS X ONE MOVING FROM BSC BACK INTO BED AND RESOLVED QUICKLY. VSS/AFEBRILE. COOPERATIVE WITH CARE. CALL LIGHT IN REACH. BED IN LOWEST POSITION. WILL CONTINUE TO MONITOR UNTIL DAY SHIFT NURSE ASSUMES CARE.
[2020-10-25 05:00] LABS: BASOPHILS ABSOLUTE AUTO 0.06 K/mm3 (0.00-0.23); BASOPHILS PERCENT AUTO 1 % (0-2); EOSINOPHILS ABSOLUTE AUTO 0.17 K/mm3 (0.00-0.68); EOSINOPHILS PERCENT AUTO 2 % (0-6); Hematocrit 33.1 % (33.0-51.0); Hemoglobin 10.2 g/dL (11.5-16.0); IMMATURE GRAN ABSOLUTE AUTO 0.04 K/mm3 (0.00-0.10); IMMATURE GRAN PERCENT AUTO 1 % (0-1); LYMPHOCYTES ABSOLUTE AUTO 2.89 K/mm3 (0.84-5.20); LYMPHOCYTES PERCENT AUTO 36 % (21-46); MONOCYTES ABSOLUTE AUTO 0.82 K/mm3 (0.16-1.47); MONOCYTES PERCENT AUTO 10 % (4-13); Mean Corpuscular HGB 27.6 pg (26.0-34.0); Mean Corpuscular HGB Conc 30.8 g/dL (31.5-36.5); Mean Corpuscular Volume 90 fL (80-100); Mean Platelet Volume 10.4 fL (9.1-12.4); NEUTROPHILS ABSOLUTE AUTO 3.97 K/mm3 (1.96-9.15); NEUTROPHILS PERCENT AUTO 50 % (41-73); Platelet Count 265 K/mm3 (150-400); RDW Coefficient Variation 13.3 % (11.7-14.2); Red Blood Cell Count 3.69 M/mm3 (3.80-5.20); White Blood Cell Count 7.95 K/mm3 (4.00-11.30)
[2020-10-25 05:23] LABS: Anion Gap 6 mmol/L (6-16); Blood Urea Nitrogen 10 mg/dL (8-24); Bun/Creatinine Ratio 12.6 (12.0-20.0); CO2, Blood 24 mmol/L (21-32); Calcium, Blood 8.3 mg/dL (8.5-10.1); Chloride, Blood 112 mmol/L (98-108); Creatinine, Blood 0.79 mg/dL (0.40-1.00); Glomerular Filtration Rate >60 (60-); Glucose, Blood 84 mg/dL (70-99); Potassium, Blood 3.6 mmol/L (3.5-5.5); Sodium, Blood 142 mmol/L (136-145)
--- NOTE | 2020-10-25 17:22 | NUR ---
PT QUITE PLEASANT TODAY. PAIN MANAGED WITH AVAIL MEDS. AMBULATED TO BSC WITH 1 MAX ASST WITH GAIT BELT. PT DOL WELL. DR IN TO ASPIRATE KNEE TODAY. STATES DRAIN HAD FAILED AND WAS REMOVED. NO REDNESS NOTED IN KNEE. DR WRAPPED WITH ERNESTO BANDAGE. NO NEW CONCERNS NOTED. BED IN LOW POSITION, CALL LITE IN REACH, CALLS APPROP
[2020-10-25 22:28] LABS: Vancomycin, Trough 15.5 ug/mL (5.0-10.0)
--- NOTE | 2020-10-26 05:28 | NUR ---
SHIFT SUMMARY- PT. A&O, PLEASANT, AND COOPEARTIVE WITH CARE. ASPIRATION OF RT KNEE DONE YESTERDAY. DSG/ERNESTO BANDAGE IN PLACE, C/D/I. PT. C/O PAIN 05/27. MEDICATED PER EMAR WITH GOOD EFFECT. PT. IS WEAK, 2 PERSON ASSIST TO BSC. TOLERATING IV ABX'S WELL DURING THE NIGHT. DENIED ANY OTHER NEEDS T/O THE SHIFT, APPEARED TO HAVE RESTED COMFORTABLY IN BED. NO APPARENT DISTRESS NOTED, VSS. CALL LIGHT WITHIN REACH AND SIDE RAILS UPX2. WILL CONT TO MONITOR.
[2020-10-26 05:32] LABS: Hematocrit 35.8 % (33.0-51.0); Hemoglobin 11.2 g/dL (11.5-16.0); Mean Corpuscular HGB 27.5 pg (26.0-34.0); Mean Corpuscular HGB Conc 31.3 g/dL (31.5-36.5); Mean Corpuscular Volume 88 fL (80-100); Mean Platelet Volume 9.8 fL (9.1-12.4); Platelet Count 333 K/mm3 (150-400); RDW Standard Deviation 42.3 fL (35.1-46.3); Red Blood Cell Count 4.07 M/mm3 (3.80-5.20); White Blood Cell Count 6.99 K/mm3 (4.00-11.30)
[2020-10-26 05:48] LABS: Anion Gap 2 mmol/L (6-16); Blood Urea Nitrogen 13 mg/dL (8-24); Bun/Creatinine Ratio 17.9 (12.0-20.0); CO2, Blood 29 mmol/L (21-32); Calcium, Blood 9.2 mg/dL (8.5-10.1); Chloride, Blood 107 mmol/L (98-108); Creatinine, Blood 0.73 mg/dL (0.40-1.00); Glomerular Filtration Rate >60 (60-); Glucose, Blood 94 mg/dL (70-99); Potassium, Blood 3.9 mmol/L (3.5-5.5); Sodium, Blood 138 mmol/L (136-145)
--- NOTE | 2020-10-26 18:40 | NUR ---
SHIFT SUMMARY PT IS A&O AND ABLE TO MAKE NEEDS KNOWN. PT HAS EXPERIENCED PAIN IN RIGHT KNEE THROUGHOUT SHIFT. PT HAS BEEN REPOSITIONED AND MEDICATED PER EMAR TO HELP WITH PAIN. PT IS A 1 PERS TRANSFER TO THE [facility] [place]. OFFERED TO HELP PT TRANSFER TO CHAIR T/O SHIFT BUT SHE DECLINED STATING IT WAS TO PAINFUL. PT DAUGHTER CAME TO VISIT HER DURING SHIFT. THIS MORING PT'S IV INFLITRATED, NEW IV PLACED AND STOPPED WORKING IN AFTERNOON, ANOTHER IV PLACED THIS EVENING. PT CURENTLY IN BED, CALL LIGHT W/IN REACH.
--- NOTE | 2020-10-27 04:18 | NUR ---
SHIFT SUMMARY NO ACUTE CHANGES THIS SHIFT. PT IS A&O, CALM, PLEASANT AND COOPERATIVE WITH CARE. PT HAS EXPERIENCED PAIN IN R KNEE T/O SHIFT, MEDICATED X2 PER NOV. PT IS SBA-1 ASSIST TO BSC. PT GAVE HERSELF A "MAKESHIFT BED BATH" WITH NEW GOWN AND SOCKS OFFERED. PT STATES "I FEEL THAT IF WE COULD JUST GET THE PAIN DOWN I'D BE ABLE TO SLEEP WELL TONIGHT." AFTER PAIN MEDICATION PT HAS SLEPT WELL T/O SHIFT. PT IS LAYING IN BED WITH EYES CLOSED, EVEN AND UNLABORED RESPIRATIONS. BED IN LOWERED POSITION WITH SIDE RAILS UP X2 FOR SAFETY. CALL LIGHT AND PERSONAL ITEMS WITH IN REACH. NO APPARENT NEEDS OR DISTRESS AT THIS TIME, WILL CONTINUE TO MONITOR UNTIL REPORT GIVEN TO DAY RN.
--- NOTE | 2020-10-27 10:37 | NUR ---
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
[2020-10-27] MEDS ORDERED: VISBIOME 112.51 EACH PO (13:52)
--- NOTE | 2020-10-27 17:13 | NUR ---
DISCHARGE PT IS A&OX4. PT IS ABLE TO MAKE NEEDS KNOWN. PT IS A ONE PERSON SBA TO [facility] [place]. PT DID GET OUT OF BED W/O ASSISTANCE A FEW TIMES DURING SHIFT. PT WORKED WITH PHYSICAL THERAPY TODAY. DRESSING CHANGED BEFORE DC, SITE WAS C/D/I. IV REMOVED BEFORE DC. WENT OVER DC PACKET WITH PT, SHE IS AWARE OF WHEN HER FOLLOW UP APPOINMENT IS. PT'S CAREGIVER CAME ON TO FLOOR TO TAKE PT HOME. PT TAKEN OFF FLOOR VIA WHEELCHAIR BY CAREGIVER. PT DC AT 1717.
== END 2020-10-27 17:17 | disposition home health service (06) | DRG 554 ==
LOC: ER 16:50 → MEDS 21:43
PROVIDERS: Family Medicine; Physician Assistant; Student in an Organized Health Care Education/Training Program; ADMIT Internal Medicine
PROC: 0S9C3ZX Drainage of Right Knee Joint, Percutaneous Approach, Diagnostic (ICD-10-PCS; principal; 2020-10-26)
PROC: 0S9C3ZX Drainage of Right Knee Joint, Percutaneous Approach, Diagnostic (ICD-10-PCS; 2020-10-27)
DX: M11.261 Other chondrocalcinosis, right knee (principal); E87.1 Hypo-osmolality and hyponatremia; Z68.1 Body mass index [BMI] 19.9 or less, adult; M00.861 Arthritis due to other bacteria, right knee; E03.9 Hypothyroidism, unspecified; E87.6 Hypokalemia; F41.9 Anxiety disorder, unspecified; G89.4 Chronic pain syndrome; I25.2 Old myocardial infarction; K21.9 Gastro-esophageal reflux disease without esophagitis; M10.9 Gout, unspecified; I10 Essential (primary) hypertension
CPT/HCPCS: 36415; 73562-RT; 80048; 80053; 80202; 83605; 83615; 85025; 85027; 85651; 86140; 87040; 87070; 87075; 87205; 89051; 89060; 96361; 96374; 96375; 96376; 97110; 97116; 97162; 97166; 97530; 97535; 99283; 99285-25; A9270; J0696; J1650; J2270; J2405; J3010; J3370; J3480; J7030; J7050

== ENCOUNTER 2021-05-25 09:35 | Emergency (ER) | payer MEDICARE, OTHER ==
[~2021-05-25] VITALS: Ht 157.5 cm; Wt 44.9 kg
[~2021-05-25 09:35] MED LIST changes: +VISBIOME 112.51 EACH PO
[2021-05-25 11:20] LABS: BASOPHILS ABSOLUTE AUTO 0.07 K/mm3 (0.00-0.23); BASOPHILS PERCENT AUTO 1 % (0-2); EOSINOPHILS ABSOLUTE AUTO 0.21 K/mm3 (0.00-0.68); EOSINOPHILS PERCENT AUTO 2 % (0-6); Hematocrit 35.1 % (33.0-51.0); Hemoglobin 11.4 g/dL (11.5-16.0); IMMATURE GRAN ABSOLUTE AUTO 0.04 K/mm3 (0.00-0.10); IMMATURE GRAN PERCENT AUTO 1 % (0-1); LYMPHOCYTES PERCENT AUTO 19 % (21-46); MONOCYTES ABSOLUTE AUTO 1.01 K/mm3 (0.16-1.47); MONOCYTES PERCENT AUTO 12 % (4-13); Mean Corpuscular HGB 28.4 pg (26.0-34.0); Mean Corpuscular HGB Conc 32.5 g/dL (31.5-36.5); Mean Corpuscular Volume 87 fL (80-100); Mean Platelet Volume 10.1 fL (9.1-12.4); NEUTROPHILS ABSOLUTE AUTO 5.74 K/mm3 (1.96-9.15); NEUTROPHILS PERCENT AUTO 66 % (41-73); Platelet Count 311 K/mm3 (150-400); RDW Standard Deviation 41.7 fL (35.1-46.3); Red Blood Cell Count 4.02 M/mm3 (3.80-5.20); White Blood Cell Count 8.67 K/mm3 (4.00-11.30)
[2021-05-25 11:40] LABS: Albumin, Blood 2.9 g/dL (3.4-5.0); Albumin/Globulin Ratio 0.8 (0.8-1.8); Bilirubin, Total 0.5 mg/dL (0.1-1.0); Bun/Creatinine Ratio 10.9 (12.0-20.0); Calcium, Blood 8.7 mg/dL (8.5-10.1); Creatinine, Blood 1.1 mg/dL (0.40-1.00); Globulin, Blood 3.5 g/dL (2.2-4.0); Potassium, Blood 3.1 mmol/L (3.5-5.5); Total Protein, Blood 6.4 g/dL (6.4-8.2)
== END 2021-05-25 12:20 | disposition home or self-care (01) ==
LOC: ER 09:35
PROVIDERS: Family Medicine
DX: S16.1XXD Strain of muscle, fascia and tendon at neck level, subsequent encounter (principal); K21.9 Gastro-esophageal reflux disease without esophagitis; I25.2 Old myocardial infarction; M10.9 Gout, unspecified; Z88.6 Allergy status to analgesic agent; Z79.899 Other long term (current) drug therapy
CPT/HCPCS: 36415; 70450; 72125; 80053; 85025; 99284-25; A9270

== ENCOUNTER 2021-05-27 18:28 | Emergency (ER) | payer MEDICARE, OTHER ==
[~2021-05-27] VITALS: Ht 157.5 cm; Wt 44.9 kg
[2021-05-27] MEDS ORDERED: CAPSAICIN60 G1 TOP (19:48)
== END 2021-05-27 20:37 | disposition home or self-care (01) ==
LOC: ER 18:28
DX: G89.29 Other chronic pain (principal); M25.461 Effusion, right knee; M17.11 Unilateral primary osteoarthritis, right knee; K21.9 Gastro-esophageal reflux disease without esophagitis; I25.2 Old myocardial infarction; Z88.6 Allergy status to analgesic agent; Z79.899 Other long term (current) drug therapy
CPT/HCPCS: 73562-RT; 99283-25; A9270

== ENCOUNTER 2021-05-29 03:14 | Emergency (ER) | payer MEDICARE, OTHER ==
[~2021-05-29] VITALS: Ht 157.5 cm; Wt 44.9 kg
[~2021-05-29 03:14] MED LIST changes: +CAPSAICIN60 G1 TOP
== END 2021-05-29 07:21 | disposition home or self-care (01) ==
LOC: ER 03:14
DX: R51.9 Headache, unspecified (principal); M54.5 Low back pain; S06.0X0D Concussion without loss of consciousness, subsequent encounter; K21.9 Gastro-esophageal reflux disease without esophagitis; I25.2 Old myocardial infarction; M10.9 Gout, unspecified; Z88.6 Allergy status to analgesic agent; Z79.899 Other long term (current) drug therapy; W18.30XA Fall on same level, unspecified, initial encounter
CPT/HCPCS: 99284

== ENCOUNTER 2021-05-31 20:47 | Emergency (ER) | payer MEDICARE, OTHER ==
[~2021-05-31] VITALS: Ht 160 cm; Wt 44.9 kg
== END 2021-06-01 01:50 | disposition home or self-care (01) ==
LOC: ER 20:47
DX: M54.2 Cervicalgia (principal); G89.29 Other chronic pain; K21.9 Gastro-esophageal reflux disease without esophagitis; Z88.6 Allergy status to analgesic agent; Z79.899 Other long term (current) drug therapy
CPT/HCPCS: 99283; A9270

== ENCOUNTER → 2021-07-14 | Outpatient (CLI) | payer MEDICARE, OTHER ==
[2021-07-14 10:58] LABS: Bun/Creatinine Ratio 14.7 (12.0-20.0); Calcium, Blood 9.8 mg/dL (8.5-10.1); Creatinine, Blood 1.02 mg/dL (0.40-1.00); Potassium, Blood 3.5 mmol/L (3.5-5.5)
== END | disposition home or self-care (01) ==
LOC: LAB SHORT 08:30 → LAB 08:30
PROVIDERS: Internal Medicine
DX: E03.9 Hypothyroidism, unspecified (principal); F41.1 Generalized anxiety disorder
CPT/HCPCS: 80048; 84443

== ENCOUNTER 2021-09-28 13:40 | Emergency (ER) | payer MEDICARE, OTHER ==
[~2021-09-28] VITALS: Ht 152.4 cm; Wt 40.8 kg
[2021-09-28 14:45] LABS: BASOPHILS PERCENT AUTO 1 % (0-2); EOSINOPHILS PERCENT AUTO 0 % (0-6); Hematocrit 40.9 % (33.0-51.0); Hemoglobin 12.9 g/dL (11.5-16.0); IMMATURE GRAN ABSOLUTE AUTO 0.13 K/mm3 (0.00-0.10); IMMATURE GRAN PERCENT AUTO 1 % (0-1); LYMPHOCYTES ABSOLUTE AUTO 2.52 K/mm3 (0.84-5.20); LYMPHOCYTES PERCENT AUTO 17 % (21-46); MONOCYTES ABSOLUTE AUTO 1.27 K/mm3 (0.16-1.47); MONOCYTES PERCENT AUTO 9 % (4-13); Mean Corpuscular HGB 27.9 pg (26.0-34.0); Mean Corpuscular HGB Conc 31.5 g/dL (31.5-36.5); Mean Corpuscular Volume 89 fL (80-100); Mean Platelet Volume 9.5 fL (9.1-12.4); NEUTROPHILS ABSOLUTE AUTO 10.88 K/mm3 (1.96-9.15); NEUTROPHILS PERCENT AUTO 73 % (41-73); Platelet Count 414 K/mm3 (150-400); RDW Coefficient Variation 13.7 % (11.7-14.2); RDW Standard Deviation 44.6 fL (35.1-46.3); Red Blood Cell Count 4.62 M/mm3 (3.80-5.20)
[2021-09-28 15:13] LABS: Alanine Aminotransfer (ALT/SGP 19 U/L (12-78); Albumin, Blood 3.4 g/dL (3.4-5.0); Albumin/Globulin Ratio 0.9 (0.8-1.8); Alk Phos 86 U/L (50-136); Anion Gap 7 mmol/L (6-16); Aspartate Aminotrans (AST/SGOT 21 U/L (12-37); Bilirubin, Total 0.4 mg/dL (0.1-1.0); Blood Urea Nitrogen 11 mg/dL (8-24); Bun/Creatinine Ratio 11.7 (12.0-20.0); CO2, Blood 27 mmol/L (21-32); Calcium, Blood 9.4 mg/dL (8.5-10.1); Chloride, Blood 105 mmol/L (98-108); Creatinine, Blood 0.94 mg/dL (0.40-1.00); Globulin, Blood 3.8 g/dL (2.2-4.0); Glomerular Filtration Rate 57 (60-); Glucose, Blood 98 mg/dL (70-99); Sodium, Blood 139 mmol/L (136-145); Total Protein, Blood 7.2 g/dL (6.4-8.2); Troponin I <0.015 ng/mL (0.000-0.040)
[2021-09-28] MEDS ORDERED: AZIT250 PO (15:29)
[2021-09-28] MEDS ORDERED: HYDR1TAB94 PO (15:29)
== END 2021-09-28 16:20 | disposition home or self-care (01) ==
LOC: ER 13:40
PROVIDERS: Physician Assistant
DX: S09.90XA Unspecified injury of head, initial encounter (principal); M54.2 Cervicalgia; J18.9 Pneumonia, unspecified organism; M25.531 Pain in right wrist; M54.9 Dorsalgia, unspecified; Z79.899 Other long term (current) drug therapy; K21.9 Gastro-esophageal reflux disease without esophagitis; I25.2 Old myocardial infarction; W18.30XA Fall on same level, unspecified, initial encounter; Z88.6 Allergy status to analgesic agent; Z79.891 Long term (current) use of opiate analgesic
CPT/HCPCS: 29125; 36415; 70450; 71046; 72125; 72131; 73130; 80053; 84484; 85025; 93005; 93010; 99284-25; A9270; L0160

== ENCOUNTER 2021-10-03 03:19 | Emergency (ER) | payer MEDICARE, OTHER ==
[~2021-10-03] VITALS: Ht 152.4 cm; Wt 40.8 kg
[~2021-10-03 03:19] MED LIST changes: +HYDR1TAB94 PO
== END 2021-10-03 06:29 | disposition home or self-care (01) ==
LOC: ER 03:19
DX: M79.10 Myalgia, unspecified site (principal); K21.9 Gastro-esophageal reflux disease without esophagitis; I25.2 Old myocardial infarction; Z79.899 Other long term (current) drug therapy; Z79.891 Long term (current) use of opiate analgesic; Z86.73 Personal history of transient ischemic attack (TIA), and cerebral infarction without residual deficits; W18.30XA Fall on same level, unspecified, initial encounter
CPT/HCPCS: 70450; 71101; 72170; 73660; 99284-25; A9270

== ENCOUNTER 2021-10-13 19:14 | Emergency (ER) | payer MEDICARE, OTHER ==
[~2021-10-13] VITALS: Ht 162.6 cm; Wt 40.8 kg
== END 2021-10-13 22:17 | disposition home or self-care (01) ==
LOC: ER 19:14
DX: S09.90XA Unspecified injury of head, initial encounter (principal); I25.2 Old myocardial infarction; K21.9 Gastro-esophageal reflux disease without esophagitis; Z79.899 Other long term (current) drug therapy; W18.30XA Fall on same level, unspecified, initial encounter
CPT/HCPCS: 70450; 71045; 99284-25

== ENCOUNTER 2021-10-17 19:05 | Emergency (ER) | payer MEDICARE, OTHER ==
[~2021-10-17] VITALS: Ht 152.4 cm; Wt 35.4 kg
[2021-10-17 20:11] LABS: BASOPHILS ABSOLUTE AUTO 0.04 K/mm3 (0.00-0.23); BASOPHILS PERCENT AUTO 0 % (0-2); EOSINOPHILS PERCENT AUTO 0 % (0-6); Hematocrit 37.4 % (33.0-51.0); Hemoglobin 12.1 g/dL (11.5-16.0); IMMATURE GRAN ABSOLUTE AUTO 0.04 K/mm3 (0.00-0.10); IMMATURE GRAN PERCENT AUTO 0 % (0-1); LYMPHOCYTES ABSOLUTE AUTO 1.91 K/mm3 (0.84-5.20); LYMPHOCYTES PERCENT AUTO 18 % (21-46); MONOCYTES ABSOLUTE AUTO 1.16 K/mm3 (0.16-1.47); MONOCYTES PERCENT AUTO 11 % (4-13); Mean Corpuscular HGB 27.6 pg (26.0-34.0); Mean Corpuscular HGB Conc 32.4 g/dL (31.5-36.5); Mean Corpuscular Volume 85 fL (80-100); Mean Platelet Volume 10.1 fL (9.1-12.4); NEUTROPHILS PERCENT AUTO 71 % (41-73); Platelet Count 557 K/mm3 (150-400); RDW Coefficient Variation 12.7 % (11.7-14.2); RDW Standard Deviation 39.4 fL (35.1-46.3); Red Blood Cell Count 4.39 M/mm3 (3.80-5.20); White Blood Cell Count 10.85 K/mm3 (4.00-11.30)
[2021-10-17 20:28] LABS: Alanine Aminotransfer (ALT/SGP 29 U/L (12-78); Albumin, Blood 2.7 g/dL (3.4-5.0); Albumin/Globulin Ratio 0.6 (0.8-1.8); Alk Phos 95 U/L (50-136); Anion Gap 8 mmol/L (6-16); Aspartate Aminotrans (AST/SGOT 49 U/L (12-37); Bilirubin, Total 0.4 mg/dL (0.1-1.0); Blood Urea Nitrogen 20 mg/dL (8-24); Bun/Creatinine Ratio 17.5 (12.0-20.0); CO2, Blood 27 mmol/L (21-32); Calcium, Blood 9.4 mg/dL (8.5-10.1); Chloride, Blood 100 mmol/L (98-108); Creatinine, Blood 1.14 mg/dL (0.40-1.00); Ethanol (Alcohol), Blood, Med <3 mg/dL; Globulin, Blood 4.5 g/dL (2.2-4.0); Glomerular Filtration Rate 46 (60-); Glucose, Blood 111 mg/dL (70-99); Magnesium, Blood 1.9 mg/dL (1.6-2.4); Sodium, Blood 135 mmol/L (136-145); Total Protein, Blood 7.2 g/dL (6.4-8.2)
[2021-10-17 20:36] LABS: Base Excess Venous 6.2 mmol/L; Bicarbonate Venous 29.6 mmol/L (24.0-30.0); PCO2 Venous 42.6 mmHg (38-42); PO2 Venous 176 mmHg (38-42); pH Blood Venous 7.46 (7.34-7.37)
[2021-10-17 20:40] LABS: Source, Urine Foley catheter
[2021-10-17 20:45] LABS: Bilirubin, Urine Neg (Neg); Blood, Urine 1+ (Neg); Glucose Qualitative, Urine Neg (Neg); Ketones, Urine Neg (Neg); Leukocyte Esterase, Urine 3+ (Neg); Nitrite, Urine Neg (Neg); Protein, Urine 1+ (Neg); Specific Gravity, Urine 1.015 (1.003-1.022); Urobilinogen, Urine NORM (Normal)
[2021-10-17 20:55] LABS: Appearance, Urine Hazy (Clear); Color, Urine Yellow (P-Yellow)
[2021-10-17 20:57] LABS: Amorphous Light (0-Heavy); Bacteria Many /hpf; Squamous Epithelial Cells Few /hpf (Few)
[2021-10-17 21:13] LABS: U Amphetamine Screen Not Detected; U Barbituate Screen Not Detected; U Methamphetamine Screen Not Detected
[2021-10-17 21:14] LABS: U Benzodiazapine Screen DETECTED; U Buprenorphine Screen Not Detected; U Cannabinoids Screen Not Detected; U Cocaine Screen Not Detected; U Methadone Screen Not Detected; U Opiates Screen Not Detected; U Oxycodone Screen DETECTED; U Phencyclidine Screen Not Detected; U Propoxyphene Screen Not Detected
[2021-10-17] MEDS ORDERED: SULTRIDS PO (21:19)
[2021-10-18 01:49] LABS: Bun/Creatinine Ratio 18.1 (12.0-20.0); Creatinine, Blood 1.05 mg/dL (0.40-1.00); Potassium, Blood 3.9 mmol/L (3.5-5.5)
== END 2021-10-18 10:54 | disposition home or self-care (01) ==
LOC: ER 19:05
PROVIDERS: Student in an Organized Health Care Education/Training Program
DX: N39.0 Urinary tract infection, site not specified (principal); N17.9 Acute kidney failure, unspecified; E86.0 Dehydration; K21.9 Gastro-esophageal reflux disease without esophagitis; I25.2 Old myocardial infarction; Z79.899 Other long term (current) drug therapy; Z86.73 Personal history of transient ischemic attack (TIA), and cerebral infarction without residual deficits; W19.XXXA Unspecified fall, initial encounter
CPT/HCPCS: 36415; 51701; 71045; 80048; 80053; 81001; 82803; 83605; 83735; 84443; 85025; 87077; 87086; 87186; 93005; 93010; 96374; 99285-25; A9270; G0480; J0696; J7030

== ENCOUNTER 2022-02-11 11:22 | Emergency (ER) | payer MEDICARE, OTHER ==
[~2022-02-11] VITALS: Ht 152.4 cm; Wt 45.4 kg
[2022-02-11] MEDS ORDERED: DIAZEPAM5 M2 PO (12:43)
[2022-02-11] MEDS ORDERED: ROXICODONE15 MG PO (12:43)
[2022-02-11] MEDS ORDERED: LIDO700A20 TOP (14:21)
== END 2022-02-11 15:39 | disposition home or self-care (01) ==
LOC: ER 11:22
DX: M17.11 Unilateral primary osteoarthritis, right knee (principal); M25.461 Effusion, right knee; Z88.6 Allergy status to analgesic agent; Z88.8 Allergy status to other drugs, medicaments and biological substances; Z79.899 Other long term (current) drug therapy
CPT/HCPCS: 73562-RT; A9270

== ENCOUNTER → 2022-02-15 | Outpatient (CLI) | payer MEDICARE, OTHER ==
[~2022-02-15] MED LIST changes: +DIAZEPAM5 M2 PO; +LIDO700A20 TOP; +ROXICODONE15 MG PO
[2022-02-15 12:58] LABS: Body Fluid Crystals NEG (NEGATIVE)
[2022-02-15 13:29] LABS: BODY FLUID RBC 0.003 M/mm3 (0-0); RBC Count, Synovial Fluid 3000 /mm3 (0-0); WBC Count, Synovial Fluid 921 /mm3 (0-180)
[2022-02-15 14:35] LABS: Appearance, Synovial Fluid Hazy (Clear); Color, Synovial Fluid Yellow (None-P Yel); Lymphs, Synovial Fluid 9 % (0-15); Monocytes/Macrophages, Synovia 29 % (0-65); Neutrophils, Synovial Fluid 62 % (0-24)
== END | disposition home or self-care (01) ==
LOC: LAB 12:31 → LAB SHORT 12:31
PROVIDERS: Family Medicine
DX: M25.461 Effusion, right knee (principal)
CPT/HCPCS: 89051; 89060

== ENCOUNTER 2022-03-05 17:12 | Emergency (ER) | payer MEDICARE, OTHER ==
[~2022-03-05] VITALS: Ht 157.5 cm; Wt 46.3 kg
[2022-03-05] MEDS ORDERED: MELO7.5 PO (18:22)
[2022-03-05] MEDS ORDERED: PREGABALIN50 MG PO (18:23)
[2022-03-05] MEDS ORDERED: DICLOFENAC SOD100 G1 TOP (18:24)
[2022-03-05] MEDS ORDERED: NALOXONE HCL4 MG (18:25)
[2022-03-05] MEDS ORDERED: Roxicodone5 MG PO (19:17)
== END 2022-03-05 19:50 | disposition home or self-care (01) ==
LOC: ER 17:12
DX: M17.11 Unilateral primary osteoarthritis, right knee (principal); M25.561 Pain in right knee; Z88.8 Allergy status to other drugs, medicaments and biological substances; Z79.899 Other long term (current) drug therapy
CPT/HCPCS: A9270

== ENCOUNTER → 2023-02-20 | Outpatient (CLI) | payer MEDICARE, OTHER ==
[~2023-02-20] MED LIST changes: +DICLOFENAC SOD100 G1 TOP; +MELO7.5 PO; +NALOXONE HCL4 MG; +PREGABALIN50 MG PO
[2023-02-20 15:44] LABS: BASOPHILS ABSOLUTE AUTO 0.03 K/mm3 (0.00-0.23); BASOPHILS PERCENT AUTO 0 % (0-2); EOSINOPHILS PERCENT AUTO 0 % (0-6); Hematocrit 36.9 % (33.0-51.0); Hemoglobin 11.9 g/dL (11.5-16.0); IMMATURE GRAN ABSOLUTE AUTO 0.07 K/mm3 (0.00-0.10); IMMATURE GRAN PERCENT AUTO 0 % (0-1); LYMPHOCYTES ABSOLUTE AUTO 2.12 K/mm3 (0.84-5.20); LYMPHOCYTES PERCENT AUTO 14 % (21-46); MONOCYTES ABSOLUTE AUTO 1.17 K/mm3 (0.16-1.47); MONOCYTES PERCENT AUTO 7 % (4-13); Mean Corpuscular HGB 27.9 pg (26.0-34.0); Mean Corpuscular HGB Conc 32.2 g/dL (31.5-36.5); Mean Corpuscular Volume 86 fL (80-100); Mean Platelet Volume 10.2 fL (9.1-12.4); NEUTROPHILS ABSOLUTE AUTO 12.37 K/mm3 (1.96-9.15); NEUTROPHILS PERCENT AUTO 79 % (41-73); Platelet Count 458 K/mm3 (150-400); RDW Coefficient Variation 13.2 % (11.7-14.2); RDW Standard Deviation 41.1 fL (35.1-46.3); Red Blood Cell Count 4.27 M/mm3 (3.80-5.20); White Blood Cell Count 15.76 K/mm3 (4.00-11.30)
[2023-02-20 15:50] LABS: Albumin/Globulin Ratio 0.7 (0.8-1.8); Bilirubin, Total 0.3 mg/dL (0.1-1.0); Bun/Creatinine Ratio 20.1 (12.0-20.0); Calcium, Blood 9.2 mg/dL (8.5-10.1); Creatinine, Blood 0.9 mg/dL (0.40-1.00); Globulin, Blood 4.2 g/dL (2.2-4.0); Thyroid Stimulating Hormone 0.987 uIU/mL (0.360-4.800); Total Protein, Blood 7.2 g/dL (6.4-8.2)
== END | disposition home or self-care (01) ==
LOC: LAB 14:44 → LAB SHORT 14:44
PROVIDERS: Student in an Organized Health Care Education/Training Program
DX: R63.4 Abnormal weight loss (principal)
CPT/HCPCS: 80053; 84443; 85025

== ENCOUNTER 2023-06-17 09:32 | Emergency (ER) | payer MEDICARE, OTHER ==
[~2023-06-17] VITALS: Ht 152.4 cm; Wt 44.5 kg
[2023-06-17 10:56] LABS: Hematocrit 39.3 % (33.0-51.0); Hemoglobin 12.6 g/dL (11.5-16.0); Mean Corpuscular HGB 28.1 pg (26.0-34.0); Mean Corpuscular HGB Conc 32.1 g/dL (31.5-36.5); Mean Corpuscular Volume 88 fL (80-100); Mean Platelet Volume 9.5 fL (9.1-12.4); Platelet Count 458 K/mm3 (150-400); RDW Coefficient Variation 13.7 % (11.7-14.2); RDW Standard Deviation 43.2 fL (35.1-46.3); Red Blood Cell Count 4.48 M/mm3 (3.80-5.20); White Blood Cell Count 26.32 K/mm3 (4.00-11.30)
[2023-06-17 11:14] LABS: BAND PERCENT MAN 2 % (0-8); BASOPHILS ABSOLUTE MAN 0.26 K/mm3 (0.00-0.23); BASOPHILS PERCENT MAN 1 % (0-2); EOSINOPHILS PERCENT MAN 0 % (0-6); LYMPHOCYTES ABSOLUTE MAN 0.52 K/mm3 (0.84-5.20); LYMPHOCYTES PERCENT MAN 2 % (21-46); MONOCYTES ABSOLUTE MAN 0.78 K/mm3 (0.16-1.47); MONOCYTES PERCENT MAN 3 % (4-13); NEUTROPHILS ABSOLUTE MAN 24.74 K/mm3 (1.96-9.15); SEG NEUTROPHILS PERCENT MAN 92 % (41-73); TOTAL CELLS COUNTED 100
[2023-06-17 11:23] LABS: Albumin, Blood 2.9 g/dL (3.4-5.0); Albumin/Globulin Ratio 0.8 (0.8-1.8); Bilirubin, Total 0.5 mg/dL (0.1-1.0); Bun/Creatinine Ratio 10.8 (12.0-20.0); Calcium, Blood 9.5 mg/dL (8.5-10.1); Creatinine, Blood 1.39 mg/dL (0.40-1.00); Globulin, Blood 3.7 g/dL (2.2-4.0); Potassium, Blood 2.6 mmol/L (3.5-5.5); Total Protein, Blood 6.6 g/dL (6.4-8.2)
[2023-06-17 11:47] LABS: Source, Urine Fem Cath
[2023-06-17 11:53] LABS: Appearance, Urine Clear (Clear); Bilirubin, Urine Neg (Neg); Blood, Urine Neg (Neg); Color, Urine Yellow (P-Yellow); Glucose Qualitative, Urine Neg (Neg); Ketones, Urine Neg (Neg); Leukocyte Esterase, Urine Neg (Neg); Nitrite, Urine Neg (Neg); Protein, Urine Neg (Neg); Urobilinogen, Urine NORM (Normal)
[2023-06-17 14:00] VITALS: BP 129/105
[2023-06-17] MEDS ORDERED: HYDCOR2.5C PR (14:39)
[2023-06-17] MEDS ORDERED: AMOCLA875 PO (14:39)
== END 2023-06-17 15:01 | disposition home or self-care (01) ==
LOC: ER 09:32
PROVIDERS: Emergency Medicine
DX: K60.2 Anal fissure, unspecified (principal); D72.829 Elevated white blood cell count, unspecified; Z88.8 Allergy status to other drugs, medicaments and biological substances; Z88.6 Allergy status to analgesic agent; Z79.899 Other long term (current) drug therapy; K21.9 Gastro-esophageal reflux disease without esophagitis; M19.90 Unspecified osteoarthritis, unspecified site
CPT/HCPCS: 71045; 74177; 80053; 81003; 85025; 86850; 86900; 86901; 93005; 93010; 96374-59; 99284-25; A9270; J1170; P9612; Q9967

== ENCOUNTER 2023-06-27 12:00 | Emergency (ER) | payer MEDICARE, OTHER ==
[~2023-06-27] VITALS: Ht 152.4 cm; Wt 40.8 kg
[~2023-06-27 12:00] MED LIST changes: +AMOCLA875 PO; +HYDCOR2.5C PR
[2023-06-27] MEDS ORDERED: Prednisone50 MG PO (16:35)
[2023-06-27 17:00] VITALS: BP 141/43
== END 2023-06-27 17:15 | disposition home or self-care (01) ==
LOC: ER 12:00
DX: M79.642 Pain in left hand (principal); M79.89 Other specified soft tissue disorders; Z88.6 Allergy status to analgesic agent; Z79.899 Other long term (current) drug therapy
CPT/HCPCS: 29125; 73110; 73120; 99283-25; J7512; L3917

== ENCOUNTER → 2023-08-02 | Outpatient (CLI) | payer MEDICARE, OTHER ==
[~2023-08-02] MED LIST changes: +Prednisone50 MG PO
[2023-08-02 19:24] LABS: BASOPHILS PERCENT AUTO 1 % (0-2); EOSINOPHILS ABSOLUTE AUTO 0.28 K/mm3 (0.00-0.68); EOSINOPHILS PERCENT AUTO 3 % (0-6); Hematocrit 39.8 % (33.0-51.0); Hemoglobin 12.5 g/dL (11.5-16.0); IMMATURE GRAN ABSOLUTE AUTO 0.05 K/mm3 (0.00-0.10); IMMATURE GRAN PERCENT AUTO 1 % (0-1); LYMPHOCYTES ABSOLUTE AUTO 3.22 K/mm3 (0.84-5.20); LYMPHOCYTES PERCENT AUTO 32 % (21-46); MONOCYTES ABSOLUTE AUTO 0.89 K/mm3 (0.16-1.47); MONOCYTES PERCENT AUTO 9 % (4-13); Mean Corpuscular HGB 28.1 pg (26.0-34.0); Mean Corpuscular HGB Conc 31.4 g/dL (31.5-36.5); Mean Corpuscular Volume 89 fL (80-100); Mean Platelet Volume 10.3 fL (9.1-12.4); NEUTROPHILS ABSOLUTE AUTO 5.44 K/mm3 (1.96-9.15); NEUTROPHILS PERCENT AUTO 55 % (41-73); Platelet Count 387 K/mm3 (150-400); RDW Coefficient Variation 15.3 % (11.7-14.2); Red Blood Cell Count 4.45 M/mm3 (3.80-5.20); White Blood Cell Count 9.98 K/mm3 (4.00-11.30)
[2023-08-02 20:27] LABS: Albumin, Blood 3.4 g/dL (3.4-5.0); Bilirubin, Total 0.3 mg/dL (0.1-1.0); Bun/Creatinine Ratio 10.1 (12.0-20.0); Calcium, Blood 9.8 mg/dL (8.5-10.1); Creatinine, Blood 1.09 mg/dL (0.40-1.00); Globulin, Blood 3.3 g/dL (2.2-4.0); Potassium, Blood 3.7 mmol/L (3.5-5.5); Total Protein, Blood 6.7 g/dL (6.4-8.2)
== END | disposition home or self-care (01) ==
LOC: LAB 17:35 → LAB SHORT 17:35
PROVIDERS: Internal Medicine
DX: K21.9 Gastro-esophageal reflux disease without esophagitis (principal); D72.829 Elevated white blood cell count, unspecified; K60.2 Anal fissure, unspecified
CPT/HCPCS: 80053; 85025

== ENCOUNTER 2024-02-27 02:23 | Inpatient (IN) | payer MEDICARE, OTHER ==
[~2024-02-27] VITALS: Ht 152.4 cm; Wt 47.5 kg
[~2024-02-27 02:23] MED LIST changes: -DICLOFENAC SOD100 G1 TOP; +DICLOFENAC SODI50 GM TOP
[2024-02-27 03:05] LABS: Hematocrit 43.7 % (33.0-51.0); Hemoglobin 14.3 g/dL (11.5-16.0); Mean Corpuscular HGB 28.4 pg (26.0-34.0); Mean Corpuscular HGB Conc 32.7 g/dL (31.5-36.5); Mean Corpuscular Volume 87 fL (80-100); Mean Platelet Volume 11.2 fL (9.1-12.4); Platelet Count 375 K/mm3 (150-400); RDW Coefficient Variation 14.3 % (11.7-14.2); RDW Standard Deviation 45.3 fL (35.1-46.3); Red Blood Cell Count 5.03 M/mm3 (3.80-5.20)
[2024-02-27 03:38] LABS: BAND PERCENT MAN 8 % (0-8); BASOPHILS PERCENT MAN 0 % (0-2); EOSINOPHILS PERCENT MAN 0 % (0-6); LYMPHOCYTES ABSOLUTE MAN 2.11 K/mm3 (0.84-5.20); LYMPHOCYTES PERCENT MAN 6 % (21-46); MONOCYTES ABSOLUTE MAN 2.47 K/mm3 (0.16-1.47); MONOCYTES PERCENT MAN 7 % (4-13); NEUTROPHILS ABSOLUTE MAN 30.71 K/mm3 (1.96-9.15); SEG NEUTROPHILS PERCENT MAN 79 % (41-73); TOTAL CELLS COUNTED 100
[2024-02-27] MEDS ORDERED: NS 1,000 ML IV SCH (04:15)
[2024-02-27] MEDS ORDERED: FentaNYL Citrate 50 MCG/ML 2 ML Injection IV ONE ×2 (04:25→08:30)
[2024-02-27 04:40] LABS: Thyroid Stimulating Hormone 1.33 uIU/mL (0.360-4.800)
[2024-02-27 04:44] LABS: Albumin/Globulin Ratio 0.6 (0.8-1.8); Bilirubin, Total 0.9 mg/dL (0.1-1.0); Bun/Creatinine Ratio 28.2 (12.0-20.0); Calcium, Blood 9.5 mg/dL (8.5-10.1); Creatinine, Blood 1.03 mg/dL (0.40-1.00); Globulin, Blood 5.2 g/dL (2.2-4.0); Potassium, Blood 4.4 mmol/L (3.5-5.5); Total Protein, Blood 8.2 g/dL (6.4-8.2)
[2024-02-27] MEDS ORDERED: CefTRIAXone Sodium 1,000 MG in NS 50 ML IV ONE (05:15)
[2024-02-27 06:10] LABS: Source, Urine Straight Cath
[2024-02-27 06:18] LABS: Appearance, Urine Clear (Clear); Bilirubin, Urine Neg (Neg); Blood, Urine 1+ (Neg); Color, Urine Yellow (P-Yellow); Glucose Qualitative, Urine Neg (Neg); Ketones, Urine 2+ (Neg); Leukocyte Esterase, Urine Neg (Neg); Nitrite, Urine Neg (Neg); Protein, Urine 1+ (Neg); Specific Gravity, Urine 1.015 (1.003-1.022); Urobilinogen, Urine 1+ (Normal)
[2024-02-27 06:25] LABS: Red Blood Cells, Urine 0-2 /hpf (0-2); White Blood Cells, Urine 0-2 /hpf (0-5)
[2024-02-27 06:26] LABS: Bacteria Few /hpf; Granular Casts 0-2 /lpf (0); Hyaline Casts 0-2 /lpf (0-2); Squamous Epithelial Cells Few /hpf (Few)
[2024-02-27 06:32] LABS: U Amphetamine Screen Not Detected; U Barbituate Screen Not Detected; U Benzodiazapine Screen DETECTED; U Buprenorphine Screen Not Detected; U Cannabinoids Screen Not Detected; U Cocaine Screen Not Detected; U Methadone Screen Not Detected; U Methamphetamine Screen Not Detected; U Opiates Screen Not Detected; U Oxycodone Screen DETECTED; U Phencyclidine Screen Not Detected
[2024-02-27] MEDS ORDERED: Azithromycin 500 MG in NS 250 ML IV ONE (07:25)
[2024-02-27] MEDS ORDERED: Polyethylene Glycol 3350 17 gm PO PRN (07:55)
[2024-02-27] MEDS ORDERED: Enoxaparin 30 MG/0.3 ML SYR SC SCH (09:00)
[2024-02-27] MEDS ORDERED: Cholecalciferol 1000 Unit Tablet (=25MCG) PO SCH (09:00)
[2024-02-27] MEDS ORDERED: Azithromycin 250 MG Tab PO SCH (09:00)
[2024-02-27 09:46] VITALS: BP 160/85
[2024-02-27] MEDS ORDERED: OxyCODONE HCL 5 MG TAB PO PRN (11:45)
[2024-02-27] MEDS ORDERED: GABA300 PO (12:51)
[2024-02-27] MEDS ORDERED: MIRTAZAPINE7.5 M1 PO (12:52)
[2024-02-27] MEDS ORDERED: DIAZ2 PO ×2 (12:53)
[2024-02-27 15:13] VITALS: BP 127/65
--- NOTE | 2024-02-27 15:53 | NUR ---
ADMISSION/SHIFT SUMMARY: PATIENT ARRIVES TO ROOM AT 0940 VIA GURNEY FROM ER FOR DX'S OF PNEUMONIA. PATIENT TRANSFERRED TO BED USING SLIDER SHEET c 3 MAX ASSIST. PATIENT REPORTS PAIN TO NECK/L SHOULDER/ARM AND R HIP. PATIENT HAD GLF AT HOME. ADMISSION, MEDRIC AND SKIN ASSESSMENT c 2 RN VERIFIED COMPLETED. PATIENT A/O TO SELF, PLACED AND CURRENT SITUATION, CONFUSED TO DATES. PATIENT HAD PT/OT EVAL-(SEE PT/OT NOTE). PATIENT UP IN THE CHAIR c PT, STAYED FOR ABOUT 3 HRS c 2 MAX ASSIST STAND/PIVOT BACK IN BED. PATIENT HAS Overlay [employer] SYSTEM IN PLACED FOR INCON VOID. PATIENT MEDICATED c PRN PO MEDS c MOD EFFECT. VITAL SIGNS REVIEWED. BED ALARM ON FOR SFAETY CALL LIGHT IN [facility].
[2024-02-27 19:25] VITALS: BP 115/64
[2024-02-27] MEDS ORDERED: Hydrocortisone 2.5% Cream 30 gm Tube PR SCH (21:00)
[2024-02-27] MEDS ORDERED: Docusate Sodium/Senna 1 Tab PO SCH (21:00)
[2024-02-27] MEDS ORDERED: Pregabalin 50 MG Capsule PO SCH (21:00)
[2024-02-28 02:30] VITALS: BP 152/71
[2024-02-28 05:50] LABS: Hematocrit 35.5 % (33.0-51.0); Hemoglobin 11.5 g/dL (11.5-16.0); Mean Corpuscular HGB 28.4 pg (26.0-34.0); Mean Corpuscular HGB Conc 32.4 g/dL (31.5-36.5); Mean Corpuscular Volume 88 fL (80-100); Mean Platelet Volume 10.5 fL (9.1-12.4); Platelet Count 360 K/mm3 (150-400); Red Blood Cell Count 4.05 M/mm3 (3.80-5.20); White Blood Cell Count 17.31 K/mm3 (4.00-11.30)
[2024-02-28 06:18] LABS: Albumin, Blood 2.2 g/dL (3.4-5.0); Anion Gap 10 mmol/L (3-11); Blood Urea Nitrogen 25 mg/dL (8-24); Bun/Creatinine Ratio 34.8 (12.0-20.0); CO2, Blood 25 mmol/L (21-32); Calcium, Blood 8.6 mg/dL (8.5-10.1); Chloride, Blood 107 mmol/L (98-108); Creatinine, Blood 0.72 mg/dL (0.40-1.00); Glomerular Filtration Rate 82 (60-); Glucose, Blood 99 mg/dL (70-99); Magnesium, Blood 1.7 mg/dL (1.6-2.4); Phosphorus, Blood 1.9 mg/dL (2.5-4.9); Potassium, Blood 3.5 mmol/L (3.5-5.5); Sodium, Blood 138 mmol/L (136-145)
--- NOTE | 2024-02-28 06:28 | NUR ---
Shift summary: Patient was DTV, bladder scan showed over 950ml and bladder is distended. Patient had a perwick in place and reported not being able to void in the bed. Patient is not normally incontinent. Patient was assisted to the BSC and voided 450mls and was inc. of urine on the way to the BSC. Patient was a heavy assist of two with a gaitbelt to the BSC.
[2024-02-28 07:31] VITALS: BP 116/65
[2024-02-28] MEDS ORDERED: Enoxaparin 30 MG/0.3 ML SYR SC SCH (09:00)
[2024-02-28] MEDS ORDERED: Allopurinol 100 MG Tab PO SCH (09:00)
[2024-02-28] MEDS ORDERED: Azithromycin 250 MG Tab PO SCH (09:00)
[2024-02-28] MEDS ORDERED: Enoxaparin 40 MG/0.4 ML SYR SC SCH ×2 (09:00)
[2024-02-28] MEDS ORDERED: Colchicine 0.6 MG TAB PO SCH (09:00)
[2024-02-28] MEDS ORDERED: Lidocaine 4% 1 Patch TOP SCH ×2 (09:00→11:40)
[2024-02-28] MEDS ORDERED: CefTRIAXone Sodium 1,000 MG in NS 100 ML IV SCH (09:00)
[2024-02-28] MEDS ORDERED: NS 250 ML IV PRN (09:55)
[2024-02-28] MEDS ORDERED: Clopidogrel Bisulfate 75 MG Tab PO SCH (11:00)
[2024-02-28 15:56] VITALS: BP 166/92
--- NOTE | 2024-02-28 16:06 | NUR ---
MEPILEX APPLIED TO COCCYX TO PREVENT SKIN BREAKDOWN.
[2024-02-28] MEDS ORDERED: Atorvastatin 40 MG Tab PO SCH (18:00)
--- NOTE | 2024-02-28 19:24 | NUR ---
SHIFT SUMMARY: PT IS A/O X 3, 2 ASSIST WITH GB, PIVOT TX. PT UP TO CHAIR H=FOR A FEW HOURS TODAY. CONTINUES TO C/O L ARM PAIN, MANAGED WITH LIDOCAINE PATCHES AND HOME OXYCODONE DOSE. PT HAD ST EVAL TODAY AND ON PUREED DIET. PT HAS POOR APPETITE. WAS DROWSY AT TIMES AND FALLING ASLEEP WHILE EATING SO DINNER MEAL HELD. DRINKING FLUIDS WELL. NO BM TODAY, MIRALAX GIVEN. MEPILEX APPLIED TO COOCYX TO PREVENT SKIN BREAKDOWN. PT REPOSITIONED Q2 HOURS. PT VOIDING WELL THROUGHOUT THE DAY. HAS BEEN INCONTINENT. NO S/S OF BLADDER DISTENTION.
[2024-02-28 19:50] VITALS: BP 135/99
[2024-02-29 03:10] VITALS: BP 137/75
--- NOTE | 2024-02-29 06:19 | NUR ---
Shift Summary: Patient was unable to void. Bladder scan was 782 mls. Assisted Patient to BS and was able to void only 200ml. control operator MD was called. Orders were obtained to straight cath now. Bladder scan Q 6 hours and straight cath for over 300mls. Just over 650mls was emptied from bladder. Patient tolerated proceedure well.
[2024-02-29 06:24] LABS: BASOPHILS ABSOLUTE AUTO 0.07 K/mm3 (0.00-0.23); BASOPHILS PERCENT AUTO 1 % (0-2); EOSINOPHILS ABSOLUTE AUTO 0.11 K/mm3 (0.00-0.68); EOSINOPHILS PERCENT AUTO 1 % (0-6); Hematocrit 35.2 % (33.0-51.0); Hemoglobin 11.5 g/dL (11.5-16.0); IMMATURE GRAN ABSOLUTE AUTO 0.11 K/mm3 (0.00-0.10); IMMATURE GRAN PERCENT AUTO 1 % (0-1); LYMPHOCYTES ABSOLUTE AUTO 2.65 K/mm3 (0.84-5.20); LYMPHOCYTES PERCENT AUTO 20 % (21-46); MONOCYTES ABSOLUTE AUTO 1.53 K/mm3 (0.16-1.47); MONOCYTES PERCENT AUTO 11 % (4-13); Mean Corpuscular HGB 28.4 pg (26.0-34.0); Mean Corpuscular HGB Conc 32.7 g/dL (31.5-36.5); Mean Corpuscular Volume 87 fL (80-100); Mean Platelet Volume 10.1 fL (9.1-12.4); NEUTROPHILS ABSOLUTE AUTO 8.93 K/mm3 (1.96-9.15); NEUTROPHILS PERCENT AUTO 67 % (41-73); Platelet Count 361 K/mm3 (150-400); RDW Coefficient Variation 13.7 % (11.7-14.2); RDW Standard Deviation 43.9 fL (35.1-46.3); Red Blood Cell Count 4.05 M/mm3 (3.80-5.20)
[2024-02-29 06:43] LABS: Bun/Creatinine Ratio 20.3 (12.0-20.0); Calcium, Blood 8.9 mg/dL (8.5-10.1); Creatinine, Blood 0.84 mg/dL (0.40-1.00); Potassium, Blood 3.6 mmol/L (3.5-5.5)
[2024-02-29 07:40] VITALS: BP 149/69
[2024-02-29] MEDS ORDERED: Polyethylene Glycol 3350 17 gm PO SCH (08:00)
[2024-02-29 15:14] VITALS: BP 137/83
--- NOTE | 2024-02-29 16:22 | NUR ---
MET WITH SHASTA. SHE WAS ASLEEP ON MY FIRST ROUND, WORKING WITH PT MY SECOND VISIT, AND ASLEEP MY THIRD TIME ATTEMPTING TO ROUND. PHONE NUMBER FOR BROTHER WAS INCORRECT. CALLED DAUGHTER CEDRICK. SHE REPORTED AHT SHASTA LIVES ALONE BUT HAS CAREGIVER THAT COMES IN AND ASSIST WITH ADLS. SHE WAS UNCERTIAN IS SHASTA HAD A POLST. SHE REPORTED THAT HER NORMAL ORAL INTAKE IS POOR. SHE HAS TWO JULIANNA DOGS AT HOME. PROVIDED NUMBER FOR BROTHER [phone]
--- NOTE | 2024-02-29 16:47 | NUR ---
SHIFT SUMMARY: PT A/O X2-3. PLEASANT AND COOPERATIVE. PT HAS BEEN IN A GREAT DEAL OF PAIN IN R. HIP, L. SHOULDER, AND L. ELBOW. MEDICATED PER EMAR. XRAY OF L. ELBOW COMPLETED THIS SHIFT. RECEIVED REPORT THAT PT RETAINED URINE OVERNIGHT AND NEEDED TO BE STRAIGHT CATHED. PER REPORT, PT DID NOT TOLERATE WELL. PT BLADDER SCANNED THIS AM WITH A RESULT OF 197. PT HAS BEEN INCONTINENT TWICE THIS SHIFT. REPEAT BLADDER SCAN @ 1552 WITH A RESULT OF 388. PT WAS ABLE TO GET ON BSC WITH HOSPICE/HOME HEALTH AIDE, PT, AND THIS RN. PT ABLE TO URINATE SMALL AMOUNT. POST VOID BLADDER SCAN OF 232. WILL CONTINUE TO CHECK FOR RETENTION. SPOKE WITH PALLIATIVE CARE REGARDING CODE STATUS AND FAILURE TO THRIVE. PALLIATIVE ATTEMPTED TO SPEAK WITH PATIENT AND FAMILY. PT CURRENTLY RESTING COMFORTABLY. CALL LIGHT IN REACH. BED IN LOWEST POSITION.
[2024-02-29 19:07] VITALS: BP 116/87
[2024-02-29] MEDS ORDERED: Lactobacil 2-S.Thermo-Bifido 1 1 Cap PO SCH (21:00)
[2024-02-29] MEDS ORDERED: Celecoxib 100 MG Cap PO SCH (21:00)
[2024-03-01 02:55] VITALS: BP 147/60
[2024-03-01 03:05] LABS: Source, Urine Foley catheter
--- NOTE | 2024-03-01 03:07 | NUR ---
ATTEMPTED STRAIGHT CATHETER ON PT AFTER BLADDER SCAN REVEALED 444 ML RETENTION. PT LABIA IS SWOLLEN WITH YEASTY RESIDUE ON BOTH SIDES. STRAIGHT CATHETER COULD NOT BE ADVANCED. HOSPITALIST NOTIFIED AND ORDER FOR INDWELLING ROLDAN CATHETER GIVEN AND PLACED IN PT.
[2024-03-01 03:22] LABS: Bilirubin, Urine Neg (Neg); Blood, Urine Neg (Neg); Glucose Qualitative, Urine Neg (Neg); Ketones, Urine Neg (Neg); Leukocyte Esterase, Urine Neg (Neg); Nitrite, Urine Neg (Neg); Protein, Urine Neg (Neg); Urobilinogen, Urine NORM (Normal); pH, Urine 6.5 (5.0-8.0)
[2024-03-01 03:30] LABS: Appearance, Urine Clear (Clear); Color, Urine Yellow (P-Yellow)
--- NOTE | 2024-03-01 04:55 | NUR ---
SHIFT SUMMARY NOC PT A/O X 2-3. PLEASANTLY CONFUSED AND COOPERATIVE WITH CARE. VSS. LUE PAIN BEING MANAGED PER EMAR. NO ACUTE EVENTS TO REPORT. BLADDER SCAN Q6H FIRST SCAN REVEALED 530 ML RETENTION, STRAIGHT CATH ATTEMPTED WITHOUT SUCCESS, ORDER FOR ROLDAN CATHETER OBTAINED AND PLACED. PT CURRENTLY RESTING WITH BED ALARM ON, BED IN LOWEST POSITION, AND CALL LIGHT WITHIN REACH.
[2024-03-01 05:26] LABS: BASOPHILS ABSOLUTE AUTO 0.09 K/mm3 (0.00-0.23); BASOPHILS PERCENT AUTO 1 % (0-2); EOSINOPHILS ABSOLUTE AUTO 0.15 K/mm3 (0.00-0.68); EOSINOPHILS PERCENT AUTO 1 % (0-6); Hematocrit 35.6 % (33.0-51.0); Hemoglobin 11.4 g/dL (11.5-16.0); IMMATURE GRAN ABSOLUTE AUTO 0.13 K/mm3 (0.00-0.10); IMMATURE GRAN PERCENT AUTO 1 % (0-1); LYMPHOCYTES ABSOLUTE AUTO 2.82 K/mm3 (0.84-5.20); LYMPHOCYTES PERCENT AUTO 25 % (21-46); MONOCYTES ABSOLUTE AUTO 1.44 K/mm3 (0.16-1.47); MONOCYTES PERCENT AUTO 13 % (4-13); Mean Corpuscular HGB 28.2 pg (26.0-34.0); Mean Corpuscular Volume 88 fL (80-100); Mean Platelet Volume 10.4 fL (9.1-12.4); NEUTROPHILS ABSOLUTE AUTO 6.89 K/mm3 (1.96-9.15); NEUTROPHILS PERCENT AUTO 60 % (41-73); Platelet Count 359 K/mm3 (150-400); RDW Coefficient Variation 13.6 % (11.7-14.2); RDW Standard Deviation 44.3 fL (35.1-46.3); Red Blood Cell Count 4.04 M/mm3 (3.80-5.20); White Blood Cell Count 11.52 K/mm3 (4.00-11.30)
[2024-03-01 05:58] LABS: Bun/Creatinine Ratio 18.3 (12.0-20.0); Calcium, Blood 8.9 mg/dL (8.5-10.1); Creatinine, Blood 0.66 mg/dL (0.40-1.00); Potassium, Blood 3.7 mmol/L (3.5-5.5)
[2024-03-01 07:30] VITALS: BP 154/73
[2024-03-01] MEDS ORDERED: PredniSONE 10 MG Tab PO SCH (14:00)
[2024-03-01 15:55] VITALS: BP 144/62
--- NOTE | 2024-03-01 17:36 | NUR ---
SHIFT SUMMARY PATIENT ALERT AND INTERACTIVE. PATIENT FORGETFUL AT TIMES. CALLING OUT WHEN AWAKE, NOT USING CALL LIGHT. PATIENT COMPLAINING OF PAIN WHEN AWAKE. PATIENT REPOSITIONED FREQUENTLY FOR COMFORT. PATIENT MEDICATED PER MAR FOR PAIN. PATIENT STATES SOMETIMES I JUST HAVE TO CALL OUT WHEN I AM IN PAIN. THE ARTHRITIS AND GOUT TOGETHER IS MISERABLE. CASE MANAGEMENT CONTINUE TO WORK ON DISCHARGE PLAN.
[2024-03-01 19:25] VITALS: BP 134/62
[2024-03-02 02:23] VITALS: BP 109/73
[2024-03-02 04:17] LABS: BASOPHILS ABSOLUTE AUTO 0.05 K/mm3 (0.00-0.23); BASOPHILS PERCENT AUTO 1 % (0-2); EOSINOPHILS ABSOLUTE AUTO 0.04 K/mm3 (0.00-0.68); EOSINOPHILS PERCENT AUTO 0 % (0-6); Hematocrit 32.2 % (33.0-51.0); Hemoglobin 10.3 g/dL (11.5-16.0); IMMATURE GRAN ABSOLUTE AUTO 0.17 K/mm3 (0.00-0.10); IMMATURE GRAN PERCENT AUTO 2 % (0-1); LYMPHOCYTES ABSOLUTE AUTO 2.09 K/mm3 (0.84-5.20); LYMPHOCYTES PERCENT AUTO 19 % (21-46); MONOCYTES ABSOLUTE AUTO 0.84 K/mm3 (0.16-1.47); MONOCYTES PERCENT AUTO 8 % (4-13); Mean Corpuscular HGB 28.1 pg (26.0-34.0); Mean Corpuscular Volume 88 fL (80-100); Mean Platelet Volume 9.8 fL (9.1-12.4); NEUTROPHILS ABSOLUTE AUTO 7.67 K/mm3 (1.96-9.15); NEUTROPHILS PERCENT AUTO 71 % (41-73); Platelet Count 420 K/mm3 (150-400); RDW Coefficient Variation 13.3 % (11.7-14.2); RDW Standard Deviation 43.6 fL (35.1-46.3); Red Blood Cell Count 3.67 M/mm3 (3.80-5.20); White Blood Cell Count 10.86 K/mm3 (4.00-11.30)
[2024-03-02 04:44] LABS: Bun/Creatinine Ratio 15.9 (12.0-20.0); Calcium, Blood 9.1 mg/dL (8.5-10.1); Creatinine, Blood 0.63 mg/dL (0.40-1.00); Potassium, Blood 3.9 mmol/L (3.5-5.5)
--- NOTE | 2024-03-02 05:09 | NUR ---
SHIFT SUMMARY NOC PT A/O TO SELF AND PLACE. PLEASANTLY CONFUSED BUT COOPERATIVE WITH CARE. PT CALLING OUT ALL SHIFT FOR PAIN RX, AND WAS TOLD THAT THEY ARE AVAILABLE Q6H, PT IS ALLERGIC TO BOTY TYLENOL AND ASPIRIN. ROLDAN IN PLACE DRAINING TO GRAVITY. PT PO LIQUID INTAKE GREAT WITH CLEAR YELLOW OUTPUT. PT CURRENTLY RESTING WITH BED ALARM ON, BED IN LOWEST POSITION, AND CALL LIGHT WITHIN REACH.
[2024-03-02 07:50] VITALS: BP 141/82
--- NOTE | 2024-03-02 17:18 | NUR ---
SHIFT SUMMARY: PT HAS BEEN A&Ox3, ANSWERS QUESTIONS APPROPRIATELY, DOES TEND TO CALL OUT FOR ASSISTANCE INSTEAD OF USING CALL LIGHT. PT W/FREQUENT C/O PAIN DESPITE BEING MEDICATED PER EMAR, PT C/O PAIN TO L SHOULDER, L ELBOW, "MY BONES", "IT'S EVERYWHERE". PT DENIES SOB, CP. RESPIRATORY AND CARDIAC WNL. INDWELLING ROLDAN PATENT, DRAINING YELLOW COLORED URINE TO GRAVITY, BM THIS SHIFT. PT ASSISTED TO/FROM BSC AND RECLINER W/GAIT BELT AND FWW, MAX ASSIST. PT DECLINES REPOSITIONING ATTEMPTS TO DISTRIBUTE WEIGHT. PT CURRENTLY RESTING IN BED W/CALL LIGHT. WILL CONTINUE TO MONITOR AND TREAT ACCORDINGLY UNTIL CHANGE OF SHIFT.
[2024-03-02] MEDS ORDERED: OxyCODONE HCL 5 MG TAB PO PRN (19:40)
[2024-03-02] MEDS ORDERED: Calcium Carbonate 500 MG Tab Chew PO PRN (19:40)
[2024-03-02 20:20] VITALS: BP 147/73
--- NOTE | 2024-03-02 22:26 | NUR ---
ASSUMED CARE WHILE PRIMARY NURSE TOOK BREAK. PT DENIES NEEDS AT THIS TIME. CALL LIGHT WITHIN REACH.
--- NOTE | 2024-03-03 01:33 | NUR ---
ASSUMED CARE OF PT WHEN NURSE WENT TO BREAK. PT C/O 06/26 "ALL OVER IN BONES" PAIN. PT MEDICATED PER EMAR. PT RESTING IN BED AND CALL LIGHT WITHIN REACH.
[2024-03-03 03:07] VITALS: BP 137/72
--- NOTE | 2024-03-03 04:38 | NUR ---
ASSUMED CARE OF PT WHILE PRIMARY RN ON BREAK. PT DENIES NEEDS AT THIS TIME.
--- NOTE | 2024-03-03 05:33 | NUR ---
SHIFT SUMMARY NOC PT A/O X 2-3. PLEASANTLY CONFUSED AT TIMES AND FORGETS TO USE CALL LIGHT AND CALLS OUT FOR NEEDS. VSS. NO ACUTE CHANGES TO REPORT. ROLDAN IN PLACE DRAINING TO GRAVITY. CHRONIC PAIN BEING MANAGED PER EMAR. PT CURRENTLY RESTING WITH BED IN LOWEST POSITION, AND CALL LIGHT WITHIN REACH.
[2024-03-03 07:44] VITALS: BP 115/66
[2024-03-03 15:35] VITALS: BP 138/71
--- NOTE | 2024-03-03 16:59 | NUR ---
SHIFT SUMMARY- PT ALERT AND ORIENTED X3. 2PA WITH ROLL AND CHANGE, 1PA WITH STAND PIVOT TRANSFERS. MEPILEX PLACED FOR PREVENTION ON COCCYX, CATH CARE PERFORMED. PT REFFUSED PILLOWS TO POSITION HER AT THE LAST Q2 TURN. TURNS HAVE BEEN THE PT WILL ALLOW. PAIN MANAGEMENT PER EMAR. PT IN BED, CALL LIGHT IN REACH NO S&S OF DISTRESS NOTED.
[2024-03-03 20:34] VITALS: BP 153/75
--- NOTE | 2024-03-04 04:48 | NUR ---
SHIFT SUMMARY: Pt is admitted for PNA and is a DNR. is alert and able to make most needs known. ADLs have been 1p through shift. Pain has been managed with PRN pain management. Folly intact and producing clear yellow urine.
[2024-03-04 05:00] VITALS: BP 149/76
[2024-03-04 07:31] VITALS: BP 139/65
[2024-03-04] MEDS ORDERED: Cefpodoxime Proxetil 200 MG Tab PO SCH (09:00)
[2024-03-04 16:37] VITALS: BP 148/80
--- NOTE | 2024-03-04 17:20 | NUR ---
SHIFT SUMMARY PT WORKED WITH PHYSICAL & OCCUPATIONAL THERPAY TODAY. AMBULATED IN ROOM WITH THERAPIES. TOLERATING 1P ASSIST WITH MINIMAL ASSISTANCE. [facility] UPDATED ON PT TODAY. CARE MANAGMENT WORKING ON A DISCHARGE PLAN FOR THE PATIENT SHE IS RESISTANT TO A SNF. MEDICATED FOR PAIN TWICE THIS SHIFT. SEE EMAR. NO OTHER ACUTE CHANGES IN ASSESSMENT AT THIS TIME. VS REVIEWED. CALL LIGHT IN REACH. DENIES OTHER NEEDS AT THIS TIME. PT IS HOPEFUL TO DC TOMORROW.
[2024-03-04 19:54] VITALS: BP 157/69
[2024-03-05 02:58] VITALS: BP 145/75
--- NOTE | 2024-03-05 06:23 | NUR ---
SHIFT SUMMARY: A&O2/3 PLEASANT AND COOPERATIVE W/ SLOW RESPONSES. RA DENIES SOB. NO TELE DENIES CP/PRESSURE. X1 ASSIST TO BSC. ROLDAN IN PLACE FOR RETENTION. PATENT DRAINING YELLOW URINE. 1L OUTPUT THIS SHIFT. BM 03/04. NO PIV ACCESS. DIET SOFT AND BITE SIZED W/ MINIMAL INTAKE. PILLS TOLERATED WELL WHOLE, ENCOURAGED TO UTILIZE APPLESAUCE FOR SAFE SWALLOWING. PT TO D/C TODAY W/ HOME HEALTH. BC FROM 02/26 SHOW NO GROWTH. PT C/O SEVERE PAIN THROUGHOUT SHIFT UNRELIEVED BY OXY 15 MG BRINGIN PTS PAIN ONLY DOWN TO 03/26. QUESTIONS ANSWERED. PT DENIES CONCERNS. SAFETY PRECAUTIONS MONITORED.
[2024-03-05 07:17] VITALS: BP 149/68
[2024-03-05] MEDS ORDERED: ATOR40TA PO (12:39)
[2024-03-05] MEDS ORDERED: CEFP200 PO (12:41)
[2024-03-05] MEDS ORDERED: Calcium Carbon500 MG PO (12:41)
[2024-03-05] MEDS ORDERED: MIRALAX1714 PO (12:42)
[2024-03-05] MEDS ORDERED: LYRICA50 M1 PO (12:43)
[2024-03-05] MEDS ORDERED: SENN187 PO (12:44)
--- NOTE | 2024-03-05 16:46 | NUR ---
SHIFT SUMMARY PT D/C AMA THIS SHIFT EVEN WITH ENCOURAGEMENT AND EDUCATION ON HOW IT WAS UNSAFE. PT STATED THAT SHE UNDERSTOOD THE RISK OF GOING HOME. PT NOTED TO CALL TAXI AND LEFT UNIT VIA WHEELCHAIR.
== END 2024-03-05 15:34 | disposition left against medical advice (07) | DRG 64 ==
LOC: ER 02:23 → MEDS 07:49
PROVIDERS: Emergency Medicine; Internal Medicine; Student in an Organized Health Care Education/Training Program; ADMIT Internal Medicine
DX: I63.9 Cerebral infarction, unspecified (principal); G92.8 Other toxic encephalopathy; J18.9 Pneumonia, unspecified organism; N18.30 Chronic kidney disease, stage 3 unspecified; Z66 Do not resuscitate; G89.29 Other chronic pain; E87.6 Hypokalemia; E03.9 Hypothyroidism, unspecified; M25.522 Pain in left elbow; M17.0 Bilateral primary osteoarthritis of knee; W06.XXXA Fall from bed, initial encounter; M25.511 Pain in right shoulder; Z79.02 Long term (current) use of antithrombotics/antiplatelets; E86.0 Dehydration; F41.9 Anxiety disorder, unspecified; K21.9 Gastro-esophageal reflux disease without esophagitis; Z90.710 Acquired absence of both cervix and uterus; Z98.890 Other specified postprocedural states; Z88.8 Allergy status to other drugs, medicaments and biological substances; Z79.2 Long term (current) use of antibiotics; Z79.891 Long term (current) use of opiate analgesic; Z79.899 Other long term (current) drug therapy; I25.2 Old myocardial infarction
CPT/HCPCS: 36415; 51701; 70450; 71260; 73030; 73080; 73502; 74177; 80048; 80053; 80069; 81001; 81003; 82550; 83605; 83735; 84145; 84439; 84443; 85025; 85027; 87040; 92526; 92610; 93005; 93010; 94760; 96361; 96365-59; 96375; 97110; 97116; 97162; 97165; 97530; 97535; 99285-25; A9270; J0456; J0696; J1650; J3010; J7030; J7050; J7512; P9612; Q9967

== ENCOUNTER 2024-03-07 01:04 | Inpatient (IN) | payer MEDICARE, OTHER ==
[~2024-03-07] VITALS: Ht 152.4 cm; Wt 45.4 kg
[~2024-03-07 01:04] MED LIST changes: +ATOR40TA PO; +CEFP200 PO; +Calcium Carbon500 MG PO; +GABA300 PO; +LYRICA50 M1 PO; +MIRALAX1714 PO; +MIRTAZAPINE7.5 M1 PO; +SENN187 PO
[2024-03-07] MEDS ORDERED: NS 1,000 ML IV SCH ×2 (01:10→07:55)
[2024-03-07 01:41] LABS: BASOPHILS ABSOLUTE AUTO 0.12 K/mm3 (0.00-0.23); BASOPHILS PERCENT AUTO 1 % (0-2); EOSINOPHILS ABSOLUTE AUTO 0.13 K/mm3 (0.00-0.68); EOSINOPHILS PERCENT AUTO 1 % (0-6); Hemoglobin 11.6 g/dL (11.5-16.0); IMMATURE GRAN ABSOLUTE AUTO 0.25 K/mm3 (0.00-0.10); IMMATURE GRAN PERCENT AUTO 2 % (0-1); LYMPHOCYTES ABSOLUTE AUTO 2.25 K/mm3 (0.84-5.20); LYMPHOCYTES PERCENT AUTO 15 % (21-46); MONOCYTES ABSOLUTE AUTO 0.76 K/mm3 (0.16-1.47); MONOCYTES PERCENT AUTO 5 % (4-13); Mean Corpuscular HGB 28.5 pg (26.0-34.0); Mean Corpuscular HGB Conc 32.2 g/dL (31.5-36.5); Mean Corpuscular Volume 89 fL (80-100); NEUTROPHILS ABSOLUTE AUTO 11.31 K/mm3 (1.96-9.15); NEUTROPHILS PERCENT AUTO 76 % (41-73); Platelet Count 556 K/mm3 (150-400); RDW Coefficient Variation 13.2 % (11.7-14.2); RDW Standard Deviation 42.6 fL (35.1-46.3); Red Blood Cell Count 4.07 M/mm3 (3.80-5.20); White Blood Cell Count 14.82 K/mm3 (4.00-11.30)
[2024-03-07 02:00] LABS: Albumin, Blood 2.8 g/dL (3.4-5.0); Albumin/Globulin Ratio 0.8 (0.8-1.8); Bilirubin, Total 0.2 mg/dL (0.1-1.0); Bun/Creatinine Ratio 17.2 (12.0-20.0); Calcium, Blood 9.2 mg/dL (8.5-10.1); Creatinine, Blood 0.7 mg/dL (0.40-1.00); Globulin, Blood 3.6 g/dL (2.2-4.0); Potassium, Blood 3.5 mmol/L (3.5-5.5); Total Protein, Blood 6.4 g/dL (6.4-8.2)
[2024-03-07] MEDS ORDERED: FentaNYL Citrate 50 MCG/ML 2 ML Injection IV ONE ×2 (02:35→10:20)
[2024-03-07] MEDS ORDERED: Ondansetron HCl 2 MG / ML 2ML Vial IV ONE ×2 (02:35→07:55)
[2024-03-07] MEDS ORDERED: CefTRIAXone Sodium 1,000 MG in NS 50 ML IV ONE (07:45)
[2024-03-07] MEDS ORDERED: Morphine Sulfate 4 MG/1 ML Injection IV ONE (07:55)
[2024-03-07] MEDS ORDERED: Ondansetron HCl 2 MG / ML 2ML Vial IV PRN (07:55)
[2024-03-07] MEDS ORDERED: FentaNYL Citrate 50 MCG/ML 2 ML Injection IV PRN ×2 (08:00→10:40)
[2024-03-07] MEDS ORDERED: Lactobacil 2-S.Thermo-Bifido 1 1 Cap PO SCH (09:00)
[2024-03-07 09:27] VITALS: BP 150/85
--- NOTE | 2024-03-07 09:43 | NUR ---
ARRIVAL TO UNIT PT ARRIVED TO UNIT FROM ER VIA [facility]. SLID TO BED WITH SLIDE SHEET. PUREWICK IN PLACE. ATTENDS DRY. PT REPORTS SIGNIFICANT PAIN AND FEELING LIKE HER "STOMACH WILL RIP APART". SHE DENIES OTHER DISCOMFORT. DENIES SOB. REMAINS ON ROOM AIR, CALL LIGHT PROVIDED. HIDA SCAN PLANNED FOR AM, NO NARCOTICS AFTER MIDNIGHT. PT OKAY FOR CLEAR LIQUID DIET TODAY. NPO AT MIDNIGHT.
--- NOTE | 2024-03-07 10:42 | NUR ---
SPOKE WITH PATIENT AND CAREGIVER. PATIENT REPORTS NEVER PICKING UP CLOPIDIGREL ORDER FROM PHARMACY AFTER LAST HOSPITAL STAY. NOTIFIED DR. KAY.
[2024-03-07] MEDS ORDERED: HYDROmorphone HCl/Pf 1MG SYR IV PRN ×2 (12:40→17:30)
--- NOTE | 2024-03-07 12:40 | NUR ---
PT CONTINUES TO RATE PAIN AT 10/10 AFTER RECIEVING PAIN MEDICATION. SPOKE WITH DR. KAY REGARDING PAIN ORDERS RECIEVED TO CHANGE TO DILAUDID. NOTIFIED DR. AHUMADA OF INCREASED ABD PAIN WELL. PT PLACED ON CONTINOUS PULSE OXIMETRY, SATURATIONS 97% ON ROOM AIR AT THIS TIME.
[2024-03-07 14:40] VITALS: BP 181/81
[2024-03-07] MEDS ORDERED: Naloxone HCl 0.4MG / ML 1ML Vial IV PRN (17:25)
--- NOTE | 2024-03-07 17:31 | NUR ---
pt continues to report significant pain after medicating with iv narcotics. continuing to moan and report "feeling like her stomach is tearing apart". spoke with dr. olmstead and dr. hernandez. dr. hernandez. New orders being placed for pain medication and surgical intervention pending HIDA scan in the am. pain continues to be located in her ruq and midline. pt remains npo with small sips per preference.
[2024-03-07] MEDS ORDERED: Ketorolac Tromethamine 15mg Vial IV PRN (17:40)
--- NOTE | 2024-03-07 18:41 | NUR ---
PT HAS BEEN SLEEPING SINCE ADMINISTRATION OF TORADOL. BED ALARM REMAINS ON. CONT BIOX ON, SATS 95% ON ROOM AIR.
[2024-03-07 21:01] VITALS: BP 140/63
[2024-03-08] VITALS (16 sets, daily range): BP systolic 104–155; BP diastolic 42–75
--- NOTE | 2024-03-08 04:16 | NUR ---
SHIFT SUMMARY PT ER ADMIT YESTERDAY FOR ACUTE SHORTY. PT HAS RESTED A GOOD PORTION OF THE SHIFT. MEDICATED FOR PAIN PER EMAR. PT HAS BEEN NPO FOR HIDA SCAN TODAY. NO NARCOTICS AFTER MIDNIGHT PER ORDERS FOR SCAN. TORADOL HAS BEEN EFFECTIVE FOR PAIN MANAGEMENT. VITALS ARE STABLE. IVF INFUSING. BED IN LOWEST POSITION, CALL LIGHT WITHIN REACH.
[2024-03-08] MEDS ORDERED: Pantoprazole Sodium 40 MG Injection IV SCH (06:00)
[2024-03-08 07:10] LABS: BASOPHILS ABSOLUTE AUTO 0.04 K/mm3 (0.00-0.23); BASOPHILS PERCENT AUTO 0 % (0-2); EOSINOPHILS ABSOLUTE AUTO 0.02 K/mm3 (0.00-0.68); EOSINOPHILS PERCENT AUTO 0 % (0-6); Hematocrit 32.6 % (33.0-51.0); Hemoglobin 10.7 g/dL (11.5-16.0); IMMATURE GRAN ABSOLUTE AUTO 0.19 K/mm3 (0.00-0.10); IMMATURE GRAN PERCENT AUTO 1 % (0-1); LYMPHOCYTES ABSOLUTE AUTO 1.66 K/mm3 (0.84-5.20); LYMPHOCYTES PERCENT AUTO 8 % (21-46); MONOCYTES PERCENT AUTO 9 % (4-13); Mean Corpuscular HGB 28.8 pg (26.0-34.0); Mean Corpuscular HGB Conc 32.8 g/dL (31.5-36.5); Mean Corpuscular Volume 88 fL (80-100); Mean Platelet Volume 9.1 fL (9.1-12.4); NEUTROPHILS PERCENT AUTO 82 % (41-73); Platelet Count 471 K/mm3 (150-400); RDW Coefficient Variation 13.6 % (11.7-14.2); RDW Standard Deviation 43.5 fL (35.1-46.3); Red Blood Cell Count 3.72 M/mm3 (3.80-5.20); White Blood Cell Count 21.61 K/mm3 (4.00-11.30)
[2024-03-08 07:25] LABS: Albumin, Blood 2.2 g/dL (3.4-5.0); Albumin/Globulin Ratio 0.7 (0.8-1.8); Bilirubin, Total 0.4 mg/dL (0.1-1.0); Bun/Creatinine Ratio 19.5 (12.0-20.0); Calcium, Blood 8.4 mg/dL (8.5-10.1); Creatinine, Blood 0.77 mg/dL (0.40-1.00); Globulin, Blood 3.1 g/dL (2.2-4.0); Total Protein, Blood 5.3 g/dL (6.4-8.2)
--- NOTE | 2024-03-08 08:13 | NUR ---
PT TO IMAGING
[2024-03-08] MEDS ORDERED: CefTRIAXone Sodium 1,000 MG in NS 100 ML IV SCH (09:00)
[2024-03-08] MEDS ORDERED: propofoL 20 ML IV ONE (12:11)
[2024-03-08] MEDS ORDERED: FentaNYL Citrate 50 MCG/ML 2 ML Injection ONE (12:11)
[2024-03-08] MEDS ORDERED: Bupivacaine 0.5% HCl 5 MG/ML 30MLVIAL ONE (12:34)
[2024-03-08] MEDS ORDERED: Ondansetron HCl 2 MG / ML 2ML Vial ONE (12:56)
[2024-03-08] MEDS ORDERED: Dexamethasone Sod Phos 10 MG/ML 1ML VIAL ONE (12:56)
[2024-03-08] MEDS ORDERED: Sugammadex Sodium 200 MG/2ML SDV (100 MG/ML) ONE (12:56)
--- NOTE | 2024-03-08 13:07 | NUR ---
CALL PLACED TO PT'S SON BEATRIZ. MESSAGE LEFT FOR HIM TO RETURN THE PHONE CALL. PT WENT TO OR AT APPROXIMATELY 1210.
--- NOTE | 2024-03-08 14:57 | NUR ---
PT ARRIVED BACK TO THE ROOM FROM PACU AT APPROXIMATELY 1455. PT ALERT AND ORIENTED X3 UPON ARRIVAL. PT FORGETFUL AT TIMES. CALL LIGHT PLACED WITHIN REACH. VSS AND CONTINUOUS PULSE OX IN PLACE. FOUR ABD LAP SITES PRESENT, CLOSED WITH WOUND GLUE, NO DRAINAGE AT THIS TIME.
[2024-03-08] MEDS ORDERED: Simethicone 80 MG Chew PO PRN (16:40)
--- NOTE | 2024-03-08 16:51 | NUR ---
CHEST PAIN PT REPORTED L SIDED CHEST PAIN/PRESSURE AT 1630. PT ALSO REPORTED HAVING SHOULDER, NECK AND BACK PAIN. PT STATES SHE HAS NEVER HAD THIS PAIN BEFORE. PT REPORTS FEELING MILDLY SHORT OF BREATH. RESP RATE AND EFFORT EVEN AN UNLABORED. O2 SATS 96% ON RA. PT IS NOT DIAPHORETIC. DR NOVA NOTIFIED. EKG ORDERED AND COMPLETED. TROPONIN LEVEL ORDERED. SIMETHICONE ORDERED.
--- NOTE | 2024-03-08 18:00 | NUR ---
SHIFT SUMMARY PT IS POD#0 FROM [facility] WITH DR. AHUMADA. PAIN MANAGED WITH TORADOL. SHE IS TOLERATING CLEAR LIQUIDS. PT HAD SOME L CHEST, SHOULDER, NECK AND BACK PAIN THIS EVENING, TROPONINS WNL; MESSAGE LEFT WITH DR. NOVA TO NOTIFY HIM OF TROPONIN RESULTS.
[2024-03-08] MEDS ORDERED: OxyCODONE HCL 5 MG TAB PO PRN (23:50)
[2024-03-09 02:13] VITALS: BP 121/63
--- NOTE | 2024-03-09 03:34 | NUR ---
SHIFT SUMMARY PT S/P LAP SHORTY. PT HAS BEEN AWAKE A LOT OF THE SHIFT, WATCHING TV. PT HAS HAD R SHOULDER PAIN, ABD PAIN, WELL SOME CHRONIC PAIN FROM HER GOUT. MEDICATED PRN PER EMAR ORDERS. PT HAS BEEN TOLERATING PO INTAKE AND IS VOIDING ADEQUATELY. LAP SITE WITH VERY LIGHT BLEEDING TO THE RIGHT LOWER ABD. ORTHO RN COVERED WITH BANDAID, NO SHADOWING NOTED ON BANDAGE OVER THE COURSE OF THE NIGHT. OTHER LAP SITES, DRY WITH NO DRAINAGE. VITALS ARE STABLE. BED IN LOWEST POSITION, CALL LIGHT WITHIN REACH.
[2024-03-09 04:40] LABS: Hematocrit 30.2 % (33.0-51.0); Hemoglobin 9.8 g/dL (11.5-16.0); Mean Corpuscular HGB 28.6 pg (26.0-34.0); Mean Corpuscular HGB Conc 32.5 g/dL (31.5-36.5); Mean Corpuscular Volume 88 fL (80-100); Mean Platelet Volume 9.7 fL (9.1-12.4); Platelet Count 455 K/mm3 (150-400); RDW Coefficient Variation 13.8 % (11.7-14.2); RDW Standard Deviation 44.3 fL (35.1-46.3); Red Blood Cell Count 3.43 M/mm3 (3.80-5.20); White Blood Cell Count 23.46 K/mm3 (4.00-11.30)
[2024-03-09 04:58] LABS: Bun/Creatinine Ratio 16.8 (12.0-20.0); Calcium, Blood 8.4 mg/dL (8.5-10.1); Creatinine, Blood 0.77 mg/dL (0.40-1.00); Potassium, Blood 3.5 mmol/L (3.5-5.5)
[2024-03-09] MEDS ORDERED: Pantoprazole Sodium 40 MG Tab PO SCH (06:00)
[2024-03-09 07:16] VITALS: BP 123/65
[2024-03-09] MEDS ORDERED: Polyethylene Glycol 3350 17 gm PO PRN (09:15)
[2024-03-09] MEDS ORDERED: MetroNIDAZOLE 500MG/NS 100 ml 100 ML IV SCH (09:30)
[2024-03-09] MEDS ORDERED: Allopurinol 100 MG Tab PO SCH (10:40)
[2024-03-09] MEDS ORDERED: Docusate Sodium/Senna 1 Tab PO SCH ×2 (10:40→21:00)
[2024-03-09] MEDS ORDERED: NS 250 ML IV PRN (12:25)
[2024-03-09 15:21] VITALS: BP 141/70
--- NOTE | 2024-03-09 16:11 | NUR ---
DAUGHTER CEDRICK'S PHONE NUMBER: [phone].
--- NOTE | 2024-03-09 17:38 | NUR ---
SHIFT SUMMARY PT IS POD#1 FROM [facility] WITH DR. AHUMADA. PT HAS HAD MINIMAL SURGICAL PAIN, CHRONIC PAIN MANAGED WITH HOME OXYCODONE DOES. PT IS TOLERATING PO. PT NOTIFIED STAFF THIS EVENING THAT SHE IS HAVING DIFFICULTY CHEWING HER FOOD, ALTERNATIVE FOOD OPTIONS OFFERED AND DIET CHANGED TO SOFT/BITE SIZE. PT IS A 1 ASSIST TODAY, SHE IS IN GOOD SPIRITS. PT USES CALL LIGHT APPROPRIATELY.
--- NOTE | 2024-03-09 18:19 | NUR ---
WHILE ASSISTING PT TO GET BED HEATING PAD WAS BEING ADJUSTED AND PT STATES THAT IT SCRATCHED HER EYE. NO VISIBLE INJURY AT THIS TIME. EYE IS NOT WATERING. BLINKING IS INCREASED. DR. NOVA NOTIFIED AND ATIFICIAL TEARS ORDERED. PT ALSO REPORTS R EYE BLURRINESS, PT STATES THIS HAS BEEN ONGOING FOR SOME TIME AND WILL FOLLOW UP WITH HER EYE DOCTOR REGARDING THIS ISSUE.
[2024-03-09] MEDS ORDERED: Peg 400/Hypromellose/Glycerin 15 DROP/ML BTL LEFTEYE PRN (18:20)
[2024-03-09 19:08] VITALS: BP 158/76
[2024-03-09] MEDS ORDERED: Gabapentin 300 MG Cap PO SCH (21:00)
[2024-03-10 03:30] VITALS: BP 143/85
[2024-03-10 04:32] LABS: Hematocrit 27.7 % (33.0-51.0); Mean Corpuscular HGB 28.3 pg (26.0-34.0); Mean Corpuscular HGB Conc 32.5 g/dL (31.5-36.5); Mean Corpuscular Volume 87 fL (80-100); Mean Platelet Volume 9.5 fL (9.1-12.4); Platelet Count 383 K/mm3 (150-400); RDW Coefficient Variation 13.8 % (11.7-14.2); RDW Standard Deviation 43.6 fL (35.1-46.3); Red Blood Cell Count 3.18 M/mm3 (3.80-5.20); White Blood Cell Count 11.66 K/mm3 (4.00-11.30)
[2024-03-10 04:54] LABS: Bun/Creatinine Ratio 14.5 (12.0-20.0); Calcium, Blood 8.6 mg/dL (8.5-10.1); Creatinine, Blood 0.83 mg/dL (0.40-1.00); Potassium, Blood 3.5 mmol/L (3.5-5.5)
[2024-03-10 07:39] VITALS: BP 136/69
--- NOTE | 2024-03-10 08:08 | NUR ---
SUMMARY PT CONTINUED REQUESTING AND RECEIVING MARK 15 MG PO FOR PAIN AAS ORDERED.PT WITH SOME URINARY RETENTION.INITAL BLADDER SCAN WAS 412.FOLLOW UP POST VOID BLADDER SCAN 188. PT OOB FOR BSC THIS AM.UP IN CHAIR NOW.ABD CONT WITH BRUISING TO ABD SURROUNDING LAP SITES, BUT NO INCREASE BRUISING AND NO BLEED NOTED.
[2024-03-10] MEDS ORDERED: Clopidogrel Bisulfate 75 MG Tab PO SCH (09:00)
[2024-03-10] MEDS ORDERED: CLOP75 PO (09:56)
[2024-03-10] MEDS ORDERED: DOCUZEN 8.6-501 EACH PO (09:57)
[2024-03-10] MEDS ORDERED: VISBIOME 112.51 EACH PO (09:58)
[2024-03-10] MEDS ORDERED: AMOCLA875 PO (09:58)
[2024-03-10] MEDS ORDERED: PANT20 PO (09:59)
--- NOTE | 2024-03-10 12:13 | NUR ---
DISCHARGE SUMMARY POD2 LAP SHORTY, A/OX4 WITH INTERMITTENT FORGETFULNESS AT NIGHT, VSS, TOLERATING PO, VOIDING WELL WITH POST VOID RETENTION WHICH HAS BEEN IMPROVING TODAY WITH A GOOD AMOUNT OF OUTPUT. PAIN AT BASELINE PER PATIENT, 4 ABDOMINAL LAP SITES C/D/I WITH A BANDAIR OVER THE RIGHT INTERIOR SITE. REMOVED IV ACCESS WHILE DISCUSSING DISCHARGE INSTRUCTIONS, MEDS FAXED TO [facility] ON [address] PER HER REQUEST. DISCUSSED DISCHARGE INFORMATION INCLUDING HOME CARE, MEDICATIONS, AND FOLLOW UP APPOINTMENTS. NO QUESTIONS AT THIS TIME, ESCORTED HER OUT VIA WC TO PRIVATE AUT[employer] TO GO HOME WITH HER CAREGIVER.
== END 2024-03-10 11:52 | disposition home or self-care (01) | DRG 419 ==
LOC: ER 01:04 → SURS 01:05 → MEDS 01:05 → SURS 09:06
PROVIDERS: Emergency Medicine; Internal Medicine; Surgery; ADMIT Family Medicine
PROC: 0FT44ZZ Resection of Gallbladder, Percutaneous Endoscopic Approach (ICD-10-PCS; principal; 2024-03-08 08:00)
DX: K81.0 Acute cholecystitis (principal); M19.90 Unspecified osteoarthritis, unspecified site; Z66 Do not resuscitate; M10.9 Gout, unspecified; E03.9 Hypothyroidism, unspecified; G89.4 Chronic pain syndrome; F41.9 Anxiety disorder, unspecified; D72.829 Elevated white blood cell count, unspecified; R54 Age-related physical debility; K21.9 Gastro-esophageal reflux disease without esophagitis; Z86.73 Personal history of transient ischemic attack (TIA), and cerebral infarction without residual deficits; Z98.890 Other specified postprocedural states; Z90.710 Acquired absence of both cervix and uterus; Z88.8 Allergy status to other drugs, medicaments and biological substances; Z79.891 Long term (current) use of opiate analgesic; Z79.899 Other long term (current) drug therapy
CPT/HCPCS: 36415; 74177; 76705; 78226; 80048; 80053; 83690; 84484; 85025; 85027; 93005; 93010; 94762; 96361; 96365-59; 96366; 96375; 96376; 97110; 97162; 99285-25; A9270; A9537; C1729; C9113; G0378; J0696; J1100; J1170; J1885; J2270; J2405; J2704; J3010; J7030; J7050; Q9967

== ENCOUNTER 2024-03-19 15:59 | Emergency (ER) | payer MEDICARE, OTHER ==
[~2024-03-19] VITALS: Ht 152.4 cm; Wt 45.4 kg
[~2024-03-19 15:59] MED LIST changes: +CLOP75 PO; +DOCUZEN 8.6-501 EACH PO; +PANT20 PO
[2024-03-19 16:29] LABS: BASOPHILS ABSOLUTE AUTO 0.12 K/mm3 (0.00-0.23); BASOPHILS PERCENT AUTO 1 % (0-2); EOSINOPHILS ABSOLUTE AUTO 0.37 K/mm3 (0.00-0.68); EOSINOPHILS PERCENT AUTO 2 % (0-6); Hematocrit 36.5 % (33.0-51.0); Hemoglobin 11.6 g/dL (11.5-16.0); IMMATURE GRAN ABSOLUTE AUTO 0.22 K/mm3 (0.00-0.10); IMMATURE GRAN PERCENT AUTO 1 % (0-1); LYMPHOCYTES ABSOLUTE AUTO 3.24 K/mm3 (0.84-5.20); LYMPHOCYTES PERCENT AUTO 21 % (21-46); MONOCYTES ABSOLUTE AUTO 1.34 K/mm3 (0.16-1.47); MONOCYTES PERCENT AUTO 9 % (4-13); Mean Corpuscular HGB 28.3 pg (26.0-34.0); Mean Corpuscular HGB Conc 31.8 g/dL (31.5-36.5); Mean Corpuscular Volume 89 fL (80-100); Mean Platelet Volume 9.3 fL (9.1-12.4); NEUTROPHILS PERCENT AUTO 65 % (41-73); Platelet Count 433 K/mm3 (150-400); RDW Coefficient Variation 14.2 % (11.7-14.2); RDW Standard Deviation 45.7 fL (35.1-46.3); White Blood Cell Count 15.19 K/mm3 (4.00-11.30)
[2024-03-19 16:48] LABS: Albumin, Blood 2.8 g/dL (3.4-5.0); Albumin/Globulin Ratio 0.7 (0.8-1.8); Bilirubin, Total 0.5 mg/dL (0.1-1.0); Bun/Creatinine Ratio 6.6 (12.0-20.0); Calcium, Blood 9.4 mg/dL (8.5-10.1); Creatinine, Blood 0.91 mg/dL (0.40-1.00); Globulin, Blood 4.1 g/dL (2.2-4.0); Potassium, Blood 3.1 mmol/L (3.5-5.5); Total Protein, Blood 6.9 g/dL (6.4-8.2)
[2024-03-19] MEDS ORDERED: Dexamethasone Sod Phos 10 MG/ML 1ML VIAL IV ONE (17:05)
[2024-03-19] MEDS ORDERED: Methocarbamol 500 MG Tab PO ONE (17:05)
[2024-03-19] MEDS ORDERED: Lidocaine 4% 1 Patch TOP ONE (17:10)
[2024-03-19] MEDS ORDERED: FentaNYL Citrate 50 MCG/ML 2 ML Injection IV ONE (17:10)
[2024-03-19] MEDS ORDERED: Methocarbamol500 MG PO (18:07)
[2024-03-19] MEDS ORDERED: LIDO700A20 TOP (18:07)
[2024-03-19 18:45] VITALS: BP 172/86
== END 2024-03-19 19:08 | disposition home or self-care (01) ==
LOC: ER 15:59
PROVIDERS: Emergency Medicine
DX: S16.1XXA Strain of muscle, fascia and tendon at neck level, initial encounter (principal); K21.9 Gastro-esophageal reflux disease without esophagitis; I25.2 Old myocardial infarction; G47.33 Obstructive sleep apnea (adult) (pediatric); E03.9 Hypothyroidism, unspecified; X58.XXXA Exposure to other specified factors, initial encounter; Z86.73 Personal history of transient ischemic attack (TIA), and cerebral infarction without residual deficits; Z79.52 Long term (current) use of systemic steroids; Z79.899 Other long term (current) drug therapy; Z88.6 Allergy status to analgesic agent; Z88.5 Allergy status to narcotic agent
CPT/HCPCS: 80053; 85025; 93005; 93010; 96372-59; 96374; 99284-25; A9270; J1100; J3010

== ENCOUNTER 2024-03-23 10:51 | Inpatient (IN) | payer MEDICARE, OTHER ==
[~2024-03-23] VITALS: Ht 165.1 cm; Wt 46.5 kg
[~2024-03-23 10:51] MED LIST changes: +Methocarbamol500 MG PO
[2024-03-23] MEDS ORDERED: OxyCODONE HCL 5 MG TAB PO ONE ×2 (14:10→15:55)
[2024-03-23] MEDS ORDERED: Ketorolac Tromethamine 15mg Vial IV ONE (14:10)
[2024-03-23 14:30] LABS: BASOPHILS PERCENT AUTO 0 % (0-2); EOSINOPHILS ABSOLUTE AUTO 0.01 K/mm3 (0.00-0.68); EOSINOPHILS PERCENT AUTO 0 % (0-6); Hematocrit 37.1 % (33.0-51.0); Hemoglobin 11.9 g/dL (11.5-16.0); IMMATURE GRAN ABSOLUTE AUTO 0.18 K/mm3 (0.00-0.10); IMMATURE GRAN PERCENT AUTO 1 % (0-1); LYMPHOCYTES ABSOLUTE AUTO 1.72 K/mm3 (0.84-5.20); LYMPHOCYTES PERCENT AUTO 7 % (21-46); MONOCYTES ABSOLUTE AUTO 1.52 K/mm3 (0.16-1.47); MONOCYTES PERCENT AUTO 6 % (4-13); Mean Corpuscular HGB 28.1 pg (26.0-34.0); Mean Corpuscular HGB Conc 32.1 g/dL (31.5-36.5); Mean Corpuscular Volume 88 fL (80-100); Mean Platelet Volume 9.5 fL (9.1-12.4); NEUTROPHILS ABSOLUTE AUTO 22.21 K/mm3 (1.96-9.15); NEUTROPHILS PERCENT AUTO 86 % (41-73); Platelet Count 540 K/mm3 (150-400); RDW Coefficient Variation 13.9 % (11.7-14.2); RDW Standard Deviation 44.8 fL (35.1-46.3); Red Blood Cell Count 4.23 M/mm3 (3.80-5.20); White Blood Cell Count 25.74 K/mm3 (4.00-11.30)
[2024-03-23 14:55] LABS: Albumin, Blood 2.8 g/dL (3.4-5.0); Albumin/Globulin Ratio 0.6 (0.8-1.8); Bilirubin, Total 0.5 mg/dL (0.1-1.0); Bun/Creatinine Ratio 16.2 (12.0-20.0); Calcium, Blood 9.9 mg/dL (8.5-10.1); Creatinine, Blood 0.86 mg/dL (0.40-1.00); Total Protein, Blood 7.8 g/dL (6.4-8.2)
[2024-03-23] MEDS ORDERED: Potassium Chloride 10 Meq Tablet SA PO ONE (18:40)
[2024-03-23 19:14] LABS: Source, Urine Clean Catch
[2024-03-23 19:17] LABS: Appearance, Urine Clear (Clear); Bilirubin, Urine Neg (Neg); Blood, Urine Neg (Neg); Color, Urine Yellow (P-Yellow); Glucose Qualitative, Urine Neg (Neg); Ketones, Urine 2+ (Neg); Leukocyte Esterase, Urine 1+ (Neg); Nitrite, Urine Neg (Neg); Protein, Urine 1+ (Neg); Specific Gravity, Urine 1.015 (1.003-1.022); Urobilinogen, Urine NORM (Normal)
[2024-03-23 19:26] LABS: Amorphous Light (0-Heavy); Bacteria Few /hpf; Hyaline Casts 0-2 /lpf (0-2); Red Blood Cells, Urine Not Seen /hpf (0-2); Squamous Epithelial Cells Few /hpf (Few)
[2024-03-23] MEDS ORDERED: NS 1,000 ML IV SCH ×2 (20:10→20:55)
[2024-03-23] MEDS ORDERED: Piperacillin/Tazobactam Sod 2.25 GM in NS 50 ML IV ONE (20:10)
[2024-03-23] MEDS ORDERED: Vancomycin HCL 750 MG in NS 250 ML IV ONE (20:30)
[2024-03-23] MEDS ORDERED: Ondansetron HCl 2 MG / ML 2ML Vial IV PRN (20:50)
[2024-03-23] MEDS ORDERED: Diazepam 5 MG Tab PO PRN (20:55)
[2024-03-23] MEDS ORDERED: OxyCODONE HCL 5 MG TAB PO PRN ×2 (20:55→21:00)
[2024-03-23] MEDS ORDERED: Gabapentin 300 MG Cap PO SCH (21:00)
[2024-03-23] MEDS ORDERED: FentaNYL Citrate 50 MCG/ML 2 ML Injection IV PRN (21:00)
[2024-03-23] MEDS ORDERED: Lactobacil 2-S.Thermo-Bifido 1 1 Cap PO SCH (21:00)
[2024-03-23] MEDS ORDERED: Sennosides 8.6 MG Tab PO SCH (21:00)
[2024-03-23] MEDS ORDERED: CefTRIAXone Sodium 2,000 MG in NS 100 ML IV SCH (21:00)
[2024-03-23] MEDS ORDERED: Ketorolac Tromethamine 15mg Vial IV PRN (21:05)
[2024-03-23 22:32] VITALS: BP 156/72
[2024-03-24] VITALS (26 sets, daily range): BP systolic 103–150; BP diastolic 53–94
--- NOTE | 2024-03-24 05:52 | NUR ---
END OF SHIFT SUMMARY NEW ADMIT RIGHT SHOULDER REDNESS/PAIN. AREA OF REDNESS OUTLINED. PT A&OX4 BUT FORGETFUL. UNABLE TO RECALL LAST DOSES OF MEDICATION, WHEN RECENT LAP SHORTY WAS DONE, ETC. OTHERWISE RESPONDS APPROPRIATELY. MEDICATED FOR R SHOULDER PAIN WITH OXY WHICH WAS EFFECTIVE. PT HAS LIMITED ROM TO RUE DUE TO PAIN. UP TO BSC WITH PIVOT/1-2XA. LAP SITE X4 TO ABD WITH SURGICAL GLUE APPEARS TO BE HEALING WELL. PT DENIES PAIN TO ABD. NPO AFTER MN FOR POSSIBLE ORTHO INTERVENTION. IVF INFUSING.
[2024-03-24] MEDS ORDERED: Pantoprazole Sodium 40 MG Injection IV SCH (06:00)
[2024-03-24 06:03] LABS: BASOPHILS ABSOLUTE AUTO 0.06 K/mm3 (0.00-0.23); BASOPHILS PERCENT AUTO 1 % (0-2); EOSINOPHILS ABSOLUTE AUTO 0.22 K/mm3 (0.00-0.68); EOSINOPHILS PERCENT AUTO 2 % (0-6); Hematocrit 29.6 % (33.0-51.0); Hemoglobin 9.2 g/dL (11.5-16.0); IMMATURE GRAN ABSOLUTE AUTO 0.09 K/mm3 (0.00-0.10); IMMATURE GRAN PERCENT AUTO 1 % (0-1); LYMPHOCYTES ABSOLUTE AUTO 2.18 K/mm3 (0.84-5.20); LYMPHOCYTES PERCENT AUTO 18 % (21-46); MONOCYTES ABSOLUTE AUTO 1.14 K/mm3 (0.16-1.47); MONOCYTES PERCENT AUTO 10 % (4-13); Mean Corpuscular HGB 27.4 pg (26.0-34.0); Mean Corpuscular HGB Conc 31.1 g/dL (31.5-36.5); Mean Corpuscular Volume 88 fL (80-100); Mean Platelet Volume 9.9 fL (9.1-12.4); NEUTROPHILS ABSOLUTE AUTO 8.31 K/mm3 (1.96-9.15); NEUTROPHILS PERCENT AUTO 69 % (41-73); Platelet Count 394 K/mm3 (150-400); RDW Coefficient Variation 13.9 % (11.7-14.2); RDW Standard Deviation 44.6 fL (35.1-46.3); Red Blood Cell Count 3.36 M/mm3 (3.80-5.20)
[2024-03-24 06:29] LABS: Anion Gap 9 mmol/L (3-11); Blood Urea Nitrogen 16 mg/dL (8-24); Bun/Creatinine Ratio 18.8 (12.0-20.0); CO2, Blood 24 mmol/L (21-32); Chloride, Blood 108 mmol/L (98-108); Creatinine, Blood 0.85 mg/dL (0.40-1.00); Glomerular Filtration Rate 67 (60-); Glucose, Blood 88 mg/dL (70-99); Sodium, Blood 138 mmol/L (136-145); Vancomycin, Random 9.5 ug/mL
[2024-03-24 06:30] LABS: Calcium, Blood 7.9 mg/dL (8.5-10.1)
[2024-03-24] MEDS ORDERED: Vancomycin HCL 1,000 MG in NS 250 ML IV ONE (07:20)
[2024-03-24] MEDS ORDERED: Potassium Chloride 20 MEQ TabCR PO ONE (08:55)
[2024-03-24] MEDS ORDERED: Clopidogrel Bisulfate 75 MG Tab PO SCH (09:00)
[2024-03-24] MEDS ORDERED: Allopurinol 100 MG Tab PO SCH (09:00)
[2024-03-24] MEDS ORDERED: Diazepam 2 MG Tab PO PRN (09:55)
[2024-03-24] MEDS ORDERED: Rocuronium Bromide 10 MG/ML 5ML Injection IV ONE (13:12)
[2024-03-24] MEDS ORDERED: propofoL 20 ML IV ONE (13:13)
[2024-03-24] MEDS ORDERED: FentaNYL Citrate 50 MCG/ML 2 ML Injection ONE ×2 (13:14→16:04)
[2024-03-24] MEDS ORDERED: CeFAZolin Sodium 2,000 MG in NS 100 ML IV SCH (13:20)
[2024-03-24] MEDS ORDERED: Lactated Ringer's 1,000 ML IV SCH (13:20)
--- NOTE | 2024-03-24 13:35 | NUR ---
PT HAS 20G IV TO LEFT AC THAT FLUSHES SLOWLY, APPEARS LEAKY AND DOES NOT FLOW TO GRAVITY. WILL RESTART NEW IV BEFORE ROLL BACK TO OR.
--- NOTE | 2024-03-24 13:41 | NUR ---
1315: PT BROUGHT FROM FLOOR TO DAY SURGERY FOR PROCEDURE. VSS. PT ON RA. PT A&OX4. History, Chart, Medications and Allergies reviewed before start of procedure. Lungs clear T/O to Auscultation. Patient confirms NPO status and agrees with scheduled surgery. Pre-Op teaching done. Pt verbalizes understanding. PT BELONGINGS LEFT IN PERSONAL ROOM ON MEDICAL FLOOR.
[2024-03-24] MEDS ORDERED: Sugammadex Sodium 200 MG/2ML SDV (100 MG/ML) ONE (14:50)
[2024-03-24] MEDS ORDERED: Ondansetron HCl 2 MG / ML 2ML Vial ONE (14:51)
[2024-03-24] MEDS ORDERED: Bupivacaine 0.5% HCl 5 MG/ML 30MLVIAL ONE (15:06)
[2024-03-24] MEDS ORDERED: HYDROmorphone HCl/Pf 1MG SYR ONE (16:12)
[2024-03-24] MEDS ORDERED: Lactated Ringer's 1,000 ML IV ONE (16:13)
--- NOTE | 2024-03-24 19:23 | NUR ---
PATIENT ARRIVED BACK FROM PACU AT 1705 AFTER I&D OF R SHOULDER. DRESSING REMAINS CDI, R SHOULDER IN SLING. ICE APPLIED TO SITE. PATIENT REPORTS 9/10 PAIN, DILAUDID AND FENTANYL GIVEN PER REPORT IN PACU. TORADOL AND OXYCODONE GIVEN AFTER ARRIVAL TO ROOM. NS INFUSING AT 100ML/HR. PATIENT ABLE TO TRANSFER WITH GB AND 1 ASSIST. CONTINENT/INCONTINENT OF URINE, WEARING ATTENDS. DENIES ANY NAUSEA, TOLERATING MINCED AND MOIST CARDIAC DIET. 2LO2 PLACED TO MAINTAIN SATS >90%, CONT BIOX ORDERED. PATIENT VERY PLEASANY AND COOPERATIVE WITH CARE. VITAL SIGNS STABLE THIS SHIFT.
[2024-03-25 02:34] VITALS: BP 135/67
--- NOTE | 2024-03-25 03:54 | NUR ---
SUMMARY: PT A/OX4, CALLS APPROPRIATELY TO SPECIFY NEEDS AND IS PLEASANT AND COOPERATIVE W/CARE. SHE'S UP W/1PA AND GB TO BSC TO VOID AND HAD PUREWIC PLACED WHILE SLEEPING D/T URINARY FREQUENCY W/URGENCY AND INCREASED PAIN TO SHOULDER W/MOBILITY. PT POD 0 S/P R.SHOULDER ARTHROSCOPY W/I&D. PRESSURE DX IS C/D/I AND SLING REMAINS IN PLACE TO R.ARM. SHE RECEIVED IV FENTANYL, TORADOL AND PO OXYCODONE FOR TOLERABLE RELIEF OF SHOULDER PAIN W/ICE PACKS PROVIDED PRN. HAND IS NOTICEABLY SWOLLEN BUT COLOR, CAP REFILL AND SENSATION TO FINGERS IS INTACT AND WNL. NS INFUSES AT 100 ML/HR AND IV ABX RECEIVED. NO ACUTE CHANGES, VSS/AFEBRILE. WCTM AND REPORT TO DAY RN.
[2024-03-25 06:19] LABS: Hemoglobin 9.6 g/dL (11.5-16.0); Mean Corpuscular HGB Conc 29.1 g/dL (31.5-36.5); Mean Platelet Volume 10.3 fL (9.1-12.4); Platelet Count 411 K/mm3 (150-400); RDW Standard Deviation 49.4 fL (35.1-46.3); Red Blood Cell Count 3.43 M/mm3 (3.80-5.20); White Blood Cell Count 20.46 K/mm3 (4.00-11.30)
[2024-03-25 06:20] LABS: Mean Corpuscular Volume 96 fL (80-100)
[2024-03-25 06:25] LABS: Anion Gap 11 mmol/L (3-11); Blood Urea Nitrogen 10 mg/dL (8-24); Bun/Creatinine Ratio 13.5 (12.0-20.0); CO2, Blood 19 mmol/L (21-32); Calcium, Blood 8.2 mg/dL (8.5-10.1); Chloride, Blood 115 mmol/L (98-108); Creatinine, Blood 0.74 mg/dL (0.40-1.00); Glomerular Filtration Rate 79 (60-); Glucose, Blood 69 mg/dL (70-99); Potassium, Blood 4.1 mmol/L (3.5-5.5); Sodium, Blood 141 mmol/L (136-145); Vancomycin, Random 11.8 ug/mL
[2024-03-25 07:03] VITALS: BP 151/57
[2024-03-25 07:27] LABS: BAND PERCENT MAN 2 % (0-8); BASOPHILS PERCENT MAN 0 % (0-2); EOSINOPHILS ABSOLUTE MAN 1.02 K/mm3 (0.00-0.68); EOSINOPHILS PERCENT MAN 5 % (0-6); LYMPHOCYTES ABSOLUTE MAN 4.29 K/mm3 (0.84-5.20); LYMPHOCYTES PERCENT MAN 21 % (21-46); MONOCYTES ABSOLUTE MAN 1.63 K/mm3 (0.16-1.47); MONOCYTES PERCENT MAN 8 % (4-13); SEG NEUTROPHILS PERCENT MAN 64 % (41-73); TOTAL CELLS COUNTED 100
[2024-03-25] MEDS ORDERED: Vancomycin HCL 1,250 MG in NS 250 ML IV ONE (08:05)
[2024-03-25 16:05] VITALS: BP 140/69
--- NOTE | 2024-03-25 19:20 | NUR ---
SHIFT SUMMARY PT A&OX4, VSS, DID NOT AMB THIS SHIFT, TOLERATING PO, VOIDING, AND PAIN MANAGED PER EMAR. R SHOULDER DRESSING REMAINS C/D/I. NO OTHER ACUTE CHANGES THIS SHIFT. CALL LIGHT WITHIN REACH AND PT ABLE TO MAKE NEEDS KNOWN.
[2024-03-25 20:04] VITALS: BP 127/68
[2024-03-25] MEDS ORDERED: HYDCOR2.5C PR (22:27)
[2024-03-26 05:57] VITALS: BP 146/69
[2024-03-26] MEDS ORDERED: Pantoprazole Sodium 20 MG Tab PO SCH (06:00)
[2024-03-26 06:26] LABS: BASOPHILS ABSOLUTE AUTO 0.06 K/mm3 (0.00-0.23); BASOPHILS PERCENT AUTO 1 % (0-2); EOSINOPHILS ABSOLUTE AUTO 0.58 K/mm3 (0.00-0.68); EOSINOPHILS PERCENT AUTO 7 % (0-6); Hematocrit 24.4 % (33.0-51.0); Hemoglobin 7.5 g/dL (11.5-16.0); IMMATURE GRAN ABSOLUTE AUTO 0.05 K/mm3 (0.00-0.10); IMMATURE GRAN PERCENT AUTO 1 % (0-1); LYMPHOCYTES ABSOLUTE AUTO 2.25 K/mm3 (0.84-5.20); LYMPHOCYTES PERCENT AUTO 26 % (21-46); MONOCYTES ABSOLUTE AUTO 0.99 K/mm3 (0.16-1.47); MONOCYTES PERCENT AUTO 11 % (4-13); Mean Corpuscular HGB 27.6 pg (26.0-34.0); Mean Corpuscular HGB Conc 30.7 g/dL (31.5-36.5); Mean Platelet Volume 10.1 fL (9.1-12.4); NEUTROPHILS ABSOLUTE AUTO 4.77 K/mm3 (1.96-9.15); NEUTROPHILS PERCENT AUTO 55 % (41-73); Platelet Count 394 K/mm3 (150-400); RDW Coefficient Variation 13.9 % (11.7-14.2); RDW Standard Deviation 45.5 fL (35.1-46.3); Red Blood Cell Count 2.72 M/mm3 (3.80-5.20)
[2024-03-26 06:55] LABS: Anion Gap 8 mmol/L (3-11); Blood Urea Nitrogen 8 mg/dL (8-24); Bun/Creatinine Ratio 10.3 (12.0-20.0); CO2, Blood 24 mmol/L (21-32); Calcium, Blood 8.1 mg/dL (8.5-10.1); Chloride, Blood 115 mmol/L (98-108); Creatinine, Blood 0.77 mg/dL (0.40-1.00); Glomerular Filtration Rate 76 (60-); Glucose, Blood 91 mg/dL (70-99); Potassium, Blood 3.4 mmol/L (3.5-5.5); Sodium, Blood 144 mmol/L (136-145); Vancomycin, Random 17.3 ug/mL
[2024-03-26 07:00] LABS: Mean Corpuscular Volume 90 fL (80-100)
[2024-03-26 07:37] VITALS: BP 127/64
--- NOTE | 2024-03-26 07:46 | NUR ---
SHIFT SUMMARY PT IS A&OX4, PLEASANT AND APPRECIATIVE OF CARES. VSS ON RA. C/O PAIN 9-10/10 IN HER RIBS AND RIGHT SHOULDER. MANAGED WITH PRN 15 MG PO OXYCODONE, 25 MCG IV FENTANYL, AND/OR 15 MG IV TORADOL. TOLERATING A MINCED AND MOIST DIET, IS A FEEDER. WICKING SYSTEM IN PLACE DRAINING CLEAR YELLOW URINE. NO BM THIS SHIFT. X1-2 ASSIST, NOOB THIS SHIFT. RIGHT SHOULDER DRESSING C/D/I, SLING IN PLACE. BED IN LOWEST POSITION, CALL LIGHT WITHIN REACH.
[2024-03-26] MEDS ORDERED: Meropenem 1,000 MG in NS 100 ML IV SCH ×2 (08:14→09:00)
[2024-03-26] MEDS ORDERED: Vancomycin HCL 1,000 MG in NS 250 ML IV SCH (10:00)
[2024-03-26] MEDS ORDERED: Potassium Chloride 20 MEQ TabCR PO ONE (12:35)
[2024-03-26 15:36] VITALS: BP 167/88
--- NOTE | 2024-03-26 17:02 | NUR ---
SHIFT SUMMARY PT UP TO CHAIR TWICE TODAY. WORKED WITH PHYSICAL THERAPY AND OCCUPATIONAL THERAPY TODAY. PT ABLE TO FEED HERSELF WITH MEAL SET UP AND CUT UP. MEDICATED FOR PAIN ONCE THIS SHIFT SO FAR. PT UPSET THAT SHE IS STAYING OVERNIGHT AND IS INSISTING THAT SHE DC TOMORROW. PT REFUSING SNF AND STATES SHE HAS "PLENTY OF HELP AT HOME". NO OTHER ACUTE CHANGES IN ASSESSMENT AT THIS TIME. VS REVIEWD. PT UP IN CHAIR AWAITING DINNER. CALL LIGHT IN REACH. DENIES OTHER NEEDS AT THIS TIME.
[2024-03-26 19:26] VITALS: BP 151/108
[2024-03-27 04:52] VITALS: BP 154/73
--- NOTE | 2024-03-27 06:06 | NUR ---
SHIFT SUMMARY PT IS A&OX4, PLEASANT AND APPRECIATIVE OF CARES. NO ACUTE CHANGES OR EVENTS THIS SHIFT. VSS, HTN ON RA. C/O PAIN 9-10/10 IN HER RIBS AND RIGHT SHOULDER. MANAGED WITH PRN 15 MG PO OXYCODONE, 25 MCG IV FENTANYL, AND/OR 15 MG IV TORADOL. TOLERATING A MINCED AND MOIST DIET, IS A FEEDER. WICKING SYSTEM IN PLACE DRAINING CLEAR YELLOW URINE. NO BM THIS SHIFT. X1-2 ASSIST, TO BSC. RIGHT SHOULDER DRESSING C/D/I, SLING IN PLACE. BED IN LOWEST POSITION, CALL LIGHT WITHIN REACH.
[2024-03-27 07:29] VITALS: BP 157/80
[2024-03-27 07:31] VITALS: BP 157/80
[2024-03-27 07:52] LABS: Bun/Creatinine Ratio 7.5 (12.0-20.0); Calcium, Blood 8.6 mg/dL (8.5-10.1); Creatinine, Blood 0.8 mg/dL (0.40-1.00); Potassium, Blood 3.9 mmol/L (3.5-5.5)
[2024-03-27] MEDS ORDERED: AmLODIPine Besylate 5 MG Tab PO SCH (09:00)
[2024-03-27] MEDS ORDERED: DOXY100 PO (11:18)
[2024-03-27] MEDS ORDERED: CIPR500 PO (11:18)
[2024-03-27 12:54] LABS: Hematocrit 25.2 % (33.0-51.0); Hemoglobin 8.1 g/dL (11.5-16.0)
--- NOTE | 2024-03-27 13:51 | NUR ---
DISCHARGE NOTE: PATIENT IV REMOVED AND EMERGENCY MEDICINE MEDICAL DIRECTOR ASSISTED IN GETTING HER DRESSED; COLLECTED BELONGINGS AND WENT OVER DISCHARAGE PAPERWORK. PATIENT WAS ABLE TO TRANSFER TO WHEELCHAIR AND WAS WHEELED DOWN BY EMERGENCY MEDICINE MEDICAL DIRECTOR WILFREDO. NO SIGNS OR SYMPTOMS OF DISTRESS DURING DISCHARGE.
== END 2024-03-27 13:41 | disposition home health service (06) | DRG 854 ==
LOC: ER 10:51 → MEDS 21:36 → ENPENDDIS 03-27 11:25 → MEDS 03-27 13:41
PROVIDERS: Emergency Medicine; Family Medicine; Internal Medicine; Nurse Practitioner Acute Care; Orthopaedic Surgery Sports Medicine; ADMIT Internal Medicine
PROC: 3E03329 Introduction of Other Anti-infective into Peripheral Vein, Percutaneous Approach (ICD-10-PCS; 2024-03-23)
PROC: 0RBJ4ZZ Excision of Right Shoulder Joint, Percutaneous Endoscopic Approach (ICD-10-PCS; principal; 2024-03-24 13:30)
DX: A41.9 Sepsis, unspecified organism (principal); F11.20 Opioid dependence, uncomplicated; M00.9 Pyogenic arthritis, unspecified; N39.0 Urinary tract infection, site not specified; R64 Cachexia; M19.011 Primary osteoarthritis, right shoulder; M10.9 Gout, unspecified; Z66 Do not resuscitate; B96.5 Pseudomonas (aeruginosa) (mallei) (pseudomallei) as the cause of diseases classified elsewhere; Z88.8 Allergy status to other drugs, medicaments and biological substances; K27.9 Peptic ulcer, site unspecified, unspecified as acute or chronic, without hemorrhage or perforation; G89.29 Other chronic pain; F41.1 Generalized anxiety disorder; K21.9 Gastro-esophageal reflux disease without esophagitis; I25.10 Atherosclerotic heart disease of native coronary artery without angina pectoris; Z86.73 Personal history of transient ischemic attack (TIA), and cerebral infarction without residual deficits; Z79.2 Long term (current) use of antibiotics; Z79.899 Other long term (current) drug therapy; Z90.49 Acquired absence of other specified parts of digestive tract; E03.9 Hypothyroidism, unspecified; E87.6 Hypokalemia; D64.9 Anemia, unspecified; I25.2 Old myocardial infarction; Z90.710 Acquired absence of both cervix and uterus; Z98.890 Other specified postprocedural states; Z79.02 Long term (current) use of antithrombotics/antiplatelets; Z68.20 Body mass index [BMI] 20.0-20.9, adult
CPT/HCPCS: 36415; 71045; 73030; 73201; 74177; 76882; 80048; 80053; 80202; 81001; 83605; 83690; 84145; 85014; 85018; 85025; 85651; 86140; 87040; 87070; 87075; 87077; 87086; 87186; 87205; 94762; 96365-59; 96375-59; 97140; 97162; 97167; 97530; 97535; 99285-25; A9270; C9113; J0696; J1170; J1885; J2185; J2405; J2543; J2704; J3010; J3370; J7030; J7050; J7120; Q9967

== ENCOUNTER 2024-04-13 04:00 | Observation (INO) | payer MEDICARE, OTHER ==
[~2024-04-13] VITALS: Ht 152.4 cm; Wt 40.4 kg
[~2024-04-13 04:00] MED LIST changes: +CIPR500 PO; +DOXY100 PO
[2024-04-13] MEDS ORDERED: Morphine Sulfate 4 MG/1 ML Injection IV ONE (04:55)
[2024-04-13] MEDS ORDERED: Ketorolac Tromethamine 30mg Vial IV ONE (04:55)
[2024-04-13 05:31] LABS: BASOPHILS ABSOLUTE AUTO 0.09 K/mm3 (0.00-0.23); BASOPHILS PERCENT AUTO 1 % (0-2); EOSINOPHILS ABSOLUTE AUTO 0.08 K/mm3 (0.00-0.68); EOSINOPHILS PERCENT AUTO 1 % (0-6); Hematocrit 32.7 % (33.0-51.0); Hemoglobin 10.4 g/dL (11.5-16.0); IMMATURE GRAN ABSOLUTE AUTO 0.08 K/mm3 (0.00-0.10); IMMATURE GRAN PERCENT AUTO 1 % (0-1); LYMPHOCYTES ABSOLUTE AUTO 2.17 K/mm3 (0.84-5.20); LYMPHOCYTES PERCENT AUTO 13 % (21-46); MONOCYTES PERCENT AUTO 11 % (4-13); Mean Corpuscular HGB 27.9 pg (26.0-34.0); Mean Corpuscular HGB Conc 31.8 g/dL (31.5-36.5); Mean Corpuscular Volume 88 fL (80-100); Mean Platelet Volume 9.9 fL (9.1-12.4); NEUTROPHILS ABSOLUTE AUTO 12.52 K/mm3 (1.96-9.15); NEUTROPHILS PERCENT AUTO 75 % (41-73); Platelet Count 466 K/mm3 (150-400); RDW Coefficient Variation 14.4 % (11.7-14.2); RDW Standard Deviation 46.1 fL (35.1-46.3); Red Blood Cell Count 3.73 M/mm3 (3.80-5.20); White Blood Cell Count 16.74 K/mm3 (4.00-11.30)
[2024-04-13] MEDS ORDERED: HYDROmorphone HCl/Pf 1MG SYR IV ONE (05:40)
[2024-04-13] MEDS ORDERED: Methocarbamol 500 MG Tab PO ONE (05:45)
[2024-04-13 06:13] LABS: Albumin, Blood 2.6 g/dL (3.4-5.0); Albumin/Globulin Ratio 0.6 (0.8-1.8); Bilirubin, Total 0.5 mg/dL (0.1-1.0); Bun/Creatinine Ratio 12.8 (12.0-20.0); C-REACTIVE PROTEIN, EXT RANGE 6.73 mg/dL (0.000-0.300); Calcium, Blood 8.5 mg/dL (8.5-10.1); Creatinine, Blood 0.86 mg/dL (0.40-1.00); Globulin, Blood 4.4 g/dL (2.2-4.0); Potassium, Blood 2.9 mmol/L (3.5-5.5)
[2024-04-13] MEDS ORDERED: OxyCODONE HCL 5 MG TAB PO ONE ×2 (09:40→10:55)
[2024-04-13] MEDS ORDERED: Acetaminophen 325 MG TABLET PO PRN (11:35)
[2024-04-13] MEDS ORDERED: OxyCODONE HCL 5 MG TAB PO PRN ×2 (11:40→12:15)
[2024-04-13] MEDS ORDERED: Ondansetron 4 MG TAB PO PRN (11:40)
[2024-04-13] MEDS ORDERED: Calcium Carbonate 500 MG Tab Chew PO PRN (12:15)
[2024-04-13] MEDS ORDERED: Diazepam 5 MG Tab PO PRN (12:15)
[2024-04-13] MEDS ORDERED: Lidocaine 4% 1 Patch TOP SCH (13:00)
[2024-04-13] MEDS ORDERED: Potassium Chl 20MEQ/Water100ML 100 ML IV SCH (15:45)
[2024-04-13] MEDS ORDERED: NS 1,000 ML IV SCH (16:00)
[2024-04-13 16:46] VITALS: BP 139/67
[2024-04-13] MEDS ORDERED: Gabapentin 300 MG Cap PO SCH (18:00)
[2024-04-13] MEDS ORDERED: Menthol 1 EA Adhesive Patch TOP SCH (18:00)
--- NOTE | 2024-04-13 19:16 | NUR ---
PATIENT IS ALERT AND ORIENTED AND COOPERATIVE WITH CARE. C/O 9/10 PAIN IN RIGHT SHOULDER. MEDICATED PER EMAR. HEATING PAD IN PLACE. ON RA. LUNG SOUNDS ARE CLEAR. PATIENT ATE DINNER. VOIDED VIA PUREWICK. CONSULT CALLED INTO DR. AGUIRRE THIS AFTERNOON. REPORT GIVEN TO ONCOMING SHIFT
[2024-04-13 20:40] VITALS: BP 110/52
[2024-04-13] MEDS ORDERED: Docusate Sodium 100 MG Cap PO SCH (21:00)
[2024-04-13] MEDS ORDERED: Sennosides 8.6 MG Tab PO SCH (21:00)
[2024-04-14] MEDS ORDERED: FentaNYL Citrate 50 MCG/ML 2 ML Injection IV PRN (01:45)
[2024-04-14 05:29] VITALS: BP 129/54
--- NOTE | 2024-04-14 05:45 | NUR ---
SUMMARY: PT A/OX4, SPECIFIES NEEDS AND IS PLEASANT AND COOPERATIVE W/CARE. [place] [facility] HAS PUREWICK IN PLACE D/T WEAKNESS AND R.SHOULDER PAIN THAT LIMITS ROM AND MOBILITY. PT HAD RECENT SEPTIC ARTHRITIS AND I&D PROCEDURE TO AFFECTED SHOULDER BUT NOW HAS DEVELOPED A CYST W/BURSITIS. LIDOCAINE AND ICY HOT PATCHES REMAIN INTACT AND KPAD IS BEING USED FOR MILD PAIN RELIEF. SHE ALSO RECEIVED PRN TYLENOL AND ROXICODONE FOR MINIMAL EFFECT. MADE AWARE AND FENTANYL WAS RX'D AND RECEIVED FOR IMPROVED PAIN MANAGEMENT. ORTHO CX IS PENDING AND PT WAS MADE NPO AT [place] FOR POSSIBLE PROCEDURE. SHE HAD LOW UO THIS SHIFT, ONLY VOIDING APPROX 50 MLS T/O NOCTE. WILL BLADDER SCAN PT AND ALERT MD OF FINDINGS. VSS/AFEBRILE AND SPO2 IS WNL ON RA W/CONT BIOX INTACT. NO ACUTE CHANGES. WCTM AND REPORT TO DAY RN.
[2024-04-14] MEDS ORDERED: Pantoprazole Sodium 20 MG Tab PO SCH (06:00)
--- NOTE | 2024-04-14 06:27 | NUR ---
PT ONLY VOIDED APPROX 40 MLS T/O NOCTE DESPITE PUREWIC IN PLACE AND ATTEMPT TO USE BSC W/2PA. INITIAL BLADDER SCAN WAS 523 MLS THEN PVR WAS STILL 482 MLS. BLADDER APPEARED DISTENDED AND SHE WAS TENDER W/PALPATION. MADE AWARE AND ORDER WAS OBTAINED TO ST.CATH NOW W/REPEAT BLADDER SCAN IN 6 [address]CATH WAS INSERTED W/STERILE TECHNIQUE MAINTAINED, 550 MLS UO OBTAINED. PT TOLERATED PROCEDURE WELL AND REPORTED RELIEF.
[2024-04-14 06:34] LABS: Albumin, Blood 2.4 g/dL (3.4-5.0); Albumin/Globulin Ratio 0.5 (0.8-1.8); Bilirubin, Total 0.4 mg/dL (0.1-1.0); Bun/Creatinine Ratio 14.8 (12.0-20.0); Calcium, Blood 7.7 mg/dL (8.5-10.1); Creatinine, Blood 0.81 mg/dL (0.40-1.00); Globulin, Blood 4.4 g/dL (2.2-4.0); Potassium, Blood 4.1 mmol/L (3.5-5.5); Total Protein, Blood 6.8 g/dL (6.4-8.2)
[2024-04-14 07:18] LABS: BASOPHILS ABSOLUTE AUTO 0.06 K/mm3 (0.00-0.23); BASOPHILS PERCENT AUTO 1 % (0-2); EOSINOPHILS ABSOLUTE AUTO 0.32 K/mm3 (0.00-0.68); EOSINOPHILS PERCENT AUTO 4 % (0-6); Hematocrit 27.5 % (33.0-51.0); Hemoglobin 8.7 g/dL (11.5-16.0); IMMATURE GRAN ABSOLUTE AUTO 0.06 K/mm3 (0.00-0.10); IMMATURE GRAN PERCENT AUTO 1 % (0-1); LYMPHOCYTES ABSOLUTE AUTO 2.11 K/mm3 (0.84-5.20); LYMPHOCYTES PERCENT AUTO 24 % (21-46); MONOCYTES ABSOLUTE AUTO 1.03 K/mm3 (0.16-1.47); MONOCYTES PERCENT AUTO 12 % (4-13); Mean Corpuscular HGB 27.8 pg (26.0-34.0); Mean Corpuscular HGB Conc 31.6 g/dL (31.5-36.5); Mean Corpuscular Volume 88 fL (80-100); NEUTROPHILS ABSOLUTE AUTO 5.24 K/mm3 (1.96-9.15); NEUTROPHILS PERCENT AUTO 59 % (41-73); Platelet Count 370 K/mm3 (150-400); RDW Coefficient Variation 14.5 % (11.7-14.2); RDW Standard Deviation 45.9 fL (35.1-46.3); Red Blood Cell Count 3.13 M/mm3 (3.80-5.20); White Blood Cell Count 8.82 K/mm3 (4.00-11.30)
[2024-04-14 07:21] VITALS: BP 98/54
[2024-04-14] MEDS ORDERED: Polyethylene Glycol 3350 17 gm PO SCH (09:00)
[2024-04-14] MEDS ORDERED: Enoxaparin 30 MG/0.3 ML SYR SC SCH (09:00)
[2024-04-14] MEDS ORDERED: Allopurinol 100 MG Tab PO SCH (09:00)
[2024-04-14] MEDS ORDERED: OxyCODONE HCL 5 MG TAB PO PRN (11:30)
--- NOTE | 2024-04-14 16:14 | NUR ---
1601- MD CHILEL AWARE OF PT'S BLADDER SCAN VOLUMESX2 TODAY. TO SPEAK W/DR. WINKLER AND PLACE ORDERS PRN.
[2024-04-14 16:15] VITALS: BP 125/57
[2024-04-14] MEDS ORDERED: Tamsulosin HCl 0.4 MG Cap PO SCH (17:00)
--- NOTE | 2024-04-14 17:50 | NUR ---
SUMMARY- PT AAOX3-4. X1 ASSIST TO THE BSC/CHAIR. PAIN WELL CONTROLLED BY OXY 15MG Q 4 AND THE FENTANYL. PT TO THE CHAIR FOR ALL MEALS. PT ON RA.
[2024-04-14 19:38] VITALS: BP 153/86
[2024-04-15 02:21] VITALS: BP 123/65
[2024-04-15 06:33] LABS: BASOPHILS ABSOLUTE AUTO 0.08 K/mm3 (0.00-0.23); BASOPHILS PERCENT AUTO 1 % (0-2); EOSINOPHILS ABSOLUTE AUTO 0.39 K/mm3 (0.00-0.68); EOSINOPHILS PERCENT AUTO 5 % (0-6); Hematocrit 25.5 % (33.0-51.0); IMMATURE GRAN ABSOLUTE AUTO 0.04 K/mm3 (0.00-0.10); IMMATURE GRAN PERCENT AUTO 1 % (0-1); LYMPHOCYTES ABSOLUTE AUTO 2.41 K/mm3 (0.84-5.20); LYMPHOCYTES PERCENT AUTO 33 % (21-46); MONOCYTES ABSOLUTE AUTO 0.75 K/mm3 (0.16-1.47); MONOCYTES PERCENT AUTO 10 % (4-13); Mean Corpuscular HGB 27.3 pg (26.0-34.0); Mean Corpuscular HGB Conc 31.4 g/dL (31.5-36.5); Mean Corpuscular Volume 87 fL (80-100); Mean Platelet Volume 10.1 fL (9.1-12.4); NEUTROPHILS ABSOLUTE AUTO 3.54 K/mm3 (1.96-9.15); NEUTROPHILS PERCENT AUTO 49 % (41-73); Platelet Count 409 K/mm3 (150-400); RDW Coefficient Variation 14.3 % (11.7-14.2); RDW Standard Deviation 45.1 fL (35.1-46.3); Red Blood Cell Count 2.93 M/mm3 (3.80-5.20); White Blood Cell Count 7.21 K/mm3 (4.00-11.30)
--- NOTE | 2024-04-15 06:43 | NUR ---
SHIFT SUMMARY: Pt is admitted for pain and is a DNR. is alert and able to make needs known. ADLs have been 1p through shift. Pain has been managed by PRN pain management.
[2024-04-15 08:08] VITALS: BP 118/61
[2024-04-15] MEDS ORDERED: Acetaminophen650 M1 PO (14:43)
[2024-04-15] MEDS ORDERED: LIDO700A20 TOP (14:45)
[2024-04-15] MEDS ORDERED: TAMS.4ER PO (14:45)
--- NOTE | 2024-04-15 14:57 | NUR ---
"Spiritual Care Visit | Pt. requested Pt. is awake in bed when she welcomes my visit. Pt. is pleasant. Facilitate a lif e review and Pt. freely verbalizes about her tung. Listen with interest, empathy and a calming presence. Pt. displayed evidence of a sweet hope in her savior and also verbalized an expectation that she would be discharged soon. Prayed with Pt. Pt. grabbed this associate director's hand and verbalized gratitude for the spiritual care visit."
--- NOTE | 2024-04-15 15:53 | NUR ---
PT DISCHARGE HOME WITH CAREGIVER TO TRANSPORT AT 1550. ALL PAPERWORK REVIEWED AND EDUCATIONAL MATERIAL SENT. PT TREATED FOR CHRONIC PAIN PER EMAR. AOX4 AND COOPERATIVE OF CARE. ONE PERSON ASSIST FOR AMBULATION. ABLE TO MAKE ALL NEEDS KNOWN. PERSONAL BELONGINGS COLLECTED AND SENT WITH PT. PT ESCORTED OUT BY AID IN WHEELCHAIR. NO DISTRESS NOTED.
== END 2024-04-15 15:51 | disposition home health service (06) ==
LOC: ER 04:00 → ERHOLD 04:14 → ER 04:14 → MEDS 16:42
PROVIDERS: Student in an Organized Health Care Education/Training Program; ADMIT Internal Medicine
DX: G89.29 Other chronic pain (principal); M25.511 Pain in right shoulder; M10.9 Gout, unspecified; D64.9 Anemia, unspecified; R33.9 Retention of urine, unspecified; D72.829 Elevated white blood cell count, unspecified; E87.6 Hypokalemia; Z86.73 Personal history of transient ischemic attack (TIA), and cerebral infarction without residual deficits; Z88.6 Allergy status to analgesic agent; Z79.891 Long term (current) use of opiate analgesic; Z79.899 Other long term (current) drug therapy
CPT/HCPCS: 36415; 73030; 73201; 76882; 80053; 83735; 84145; 85025; 85651; 86140; 94760; 94762; 96365-59; 96366; 96375; 96376; 97116; 97162; 97166; 97530; 97535; 99285-25; A9270; C9113; G0378; J1170; J1885; J2270; J3010; J3480; J7030; Q9967

== ENCOUNTER 2024-06-09 18:48 | Observation (INO) | payer MEDICARE, OTHER ==
[~2024-06-09] VITALS: Ht 157.5 cm; Wt 46.2 kg
[~2024-06-09 18:48] MED LIST changes: +Acetaminophen650 M1 PO; +PAIN RELIEF1 EACH TOP; -PANT20 PO; +PANTOPRAZOLE SO2010 PO; +TAMS.4ER PO
[2024-06-09 19:51] LABS: BASOPHILS ABSOLUTE AUTO 0.08 K/mm3 (0.00-0.23); BASOPHILS PERCENT AUTO 1 % (0-2); EOSINOPHILS ABSOLUTE AUTO 0.12 K/mm3 (0.00-0.68); EOSINOPHILS PERCENT AUTO 1 % (0-6); Hematocrit 37.4 % (33.0-51.0); Hemoglobin 12.4 g/dL (11.5-16.0); IMMATURE GRAN PERCENT AUTO 1 % (0-1); LYMPHOCYTES ABSOLUTE AUTO 1.58 K/mm3 (0.84-5.20); LYMPHOCYTES PERCENT AUTO 9 % (21-46); MONOCYTES ABSOLUTE AUTO 1.75 K/mm3 (0.16-1.47); MONOCYTES PERCENT AUTO 10 % (4-13); Mean Corpuscular HGB Conc 33.2 g/dL (31.5-36.5); Mean Corpuscular Volume 81 fL (80-100); Mean Platelet Volume 9.3 fL (9.1-12.4); NEUTROPHILS ABSOLUTE AUTO 13.83 K/mm3 (1.96-9.15); NEUTROPHILS PERCENT AUTO 79 % (41-73); Platelet Count 450 K/mm3 (150-400); RDW Coefficient Variation 15.1 % (11.7-14.2); RDW Standard Deviation 45.3 fL (35.1-46.3); White Blood Cell Count 17.46 K/mm3 (4.00-11.30)
[2024-06-09 20:08] LABS: Influenza A, PCR NEGATIVE (NEGATIVE); Influenza B, PCR NEGATIVE (NEGATIVE); Resp Syncytial Virus, PCR NEGATIVE (NEGATIVE); SARS-Cov-2 (COVID-19) PCR, MMC NEGATIVE (NEGATIVE)
[2024-06-09 20:16] LABS: Albumin, Blood 3.2 g/dL (3.4-5.0); Albumin/Globulin Ratio 0.7 (0.8-1.8); Bilirubin, Total 0.6 mg/dL (0.1-1.0); Bun/Creatinine Ratio 16.8 (12.0-20.0); Calcium, Blood 9.7 mg/dL (8.5-10.1); Creatinine, Blood 0.83 mg/dL (0.40-1.00); Globulin, Blood 4.7 g/dL (2.2-4.0); Potassium, Blood 3.9 mmol/L (3.5-5.5); Total Protein, Blood 7.9 g/dL (6.4-8.2)
[2024-06-09] MEDS ORDERED: OxyCODONE HCL 5 MG TAB PO ONE (21:25)
[2024-06-09 23:10] LABS: Source, Urine Clean Catch
[2024-06-09 23:51] LABS: Bilirubin, Urine Neg (Neg); Blood, Urine Neg (Neg); Glucose Qualitative, Urine Neg (Neg); Ketones, Urine Neg (Neg); Leukocyte Esterase, Urine Neg (Neg); Nitrite, Urine Neg (Neg); Protein, Urine Neg (Neg); Urobilinogen, Urine NORM (Normal)
[2024-06-09 23:56] LABS: Appearance, Urine Clear (Clear); Color, Urine Pale Yellow (P-Yellow)
[2024-06-10] MEDS ORDERED: Methocarbamol 500 MG Tab PO ONE (00:15)
[2024-06-10 02:16] LABS: Source, Urine Foley catheter
[2024-06-10 02:34] LABS: Bilirubin, Urine Neg (Neg); Blood, Urine Neg (Neg); Glucose Qualitative, Urine Neg (Neg); Ketones, Urine Neg (Neg); Leukocyte Esterase, Urine Neg (Neg); Nitrite, Urine Neg (Neg); Protein, Urine Neg (Neg); Urobilinogen, Urine NORM (Normal); pH, Urine 6.5 (5.0-8.0)
[2024-06-10 02:43] LABS: Appearance, Urine Clear (Clear); Color, Urine Pale Yellow (P-Yellow)
[2024-06-10] MEDS ORDERED: FentaNYL Citrate 50 MCG/ML 2 ML Injection IV ONE (03:50)
[2024-06-10] MEDS ORDERED: Acetaminophen 325 MG TABLET PO PRN (04:30)
[2024-06-10] MEDS ORDERED: FentaNYL Citrate 50 MCG/ML 2 ML Injection IV PRN (04:30)
[2024-06-10] MEDS ORDERED: Ondansetron HCl 2 MG / ML 2ML Vial IV PRN (04:35)
[2024-06-10] MEDS ORDERED: OxyCODONE HCL 5 MG TAB PO PRN (04:35)
[2024-06-10] MEDS ORDERED: FLU VACC TS2024-25(6MOS UP)/PF 45 MCG/0.5 ML SYRINGE IM SCH (04:35)
[2024-06-10 08:36] VITALS: BP 106/58
[2024-06-10] MEDS ORDERED: Docusate Sodium 100 MG Cap PO SCH (09:00)
[2024-06-10] MEDS ORDERED: Sennosides 8.6 MG Tab PO SCH (09:00)
--- NOTE | 2024-06-10 13:39 | NUR ---
"Spiritual Care Visit | Pt. Request Pt. is awake in bed eating lunch when she welcomes my visit. Pt. is unsettled by the dicomfort from her pain, and her cold lunch. Facilitate a life update,. Pt. verbalizes concerns about her son Eben. Listen with empathy and interest. Pt. verbalizes her strong tung and how she was baptized at [facility] when it was in [facility]. Considered othe rmatters of tung. Prayed with the Pt. Pt. verbalized gratitude for th spiritual care visit and she welcomed this telecommunications field engineer to return."
[2024-06-10 15:01] VITALS: BP 95/83
[2024-06-10] MEDS ORDERED: AMLO10 PO (16:41)
[2024-06-10] MEDS ORDERED: TIZA4 PO (16:42)
[2024-06-10] MEDS ORDERED: NARCAN4 M1 (16:47)
[2024-06-10] MEDS ORDERED: DIAZ2 PO (16:49)
[2024-06-10] MEDS ORDERED: ARTHRITIS PAIN150 GM TOP (16:51)
[2024-06-10] MEDS ORDERED: ATOR40TA PO (16:52)
[2024-06-10] MEDS ORDERED: MIRT15 PO (16:58)
--- NOTE | 2024-06-10 17:26 | NUR ---
SHIFT SUMMARY PT ADMITTED FROM THE ED THIS MORNING. PT IS A/OX3-4 WITH SOME CONFUSION. PT DESCRIBES CONSTANT PAIN IN THE RIGHT HIP THAT RADIATES THROUGHOUT THE RIGHT LOWER EXTREMITY AND UP THROUGH THE JAW. PT MEDICATED FOR PAIN WITH PRN OXYCODONE AND FENTANYL, PAIN MAINTAINING BETWEEN A 6-9 THROUGHOUT THE SHIFT. ROLDAN CATHETER IN PLACE DRAINING CLEAR, YELLOW URINE FOR ACUTE RETENTION. MRI COMPLETED THIS AFTERNOON. PT IS ON RA, NO TELE. PT STATES THAT SHE LIVES AT HOME ALONE BUT HAS A CAREGIVER THAT COMES 6X/WEEK FROM [id number]. PT IS PLEASANT AND COOPERATIVE WITH CARE AND USES THE CALL LIGHT APPROPRIATELY.
[2024-06-10 19:22] VITALS: BP 116/54
[2024-06-10] MEDS ORDERED: Gabapentin 300 MG Cap PO SCH (21:00)
[2024-06-11 02:12] VITALS: BP 126/57
--- NOTE | 2024-06-11 04:23 | NUR ---
SHIFT SUMMARY PATIENT HAD NO ACUTE CHANGES. AXOX 3-4 WITH CONFUSION AT TIMES. ONE ASSIST TO BSC. PIV INTACT. ROLDAN PATENT AND DRAINING FOR RETENTION. DENIES CHEST PAIN, SOB, AND N/V. REPORTED NECK/BACK PAIN AND OXYCODONE 15 MG GIVEN PER EMAR. VSS/AFEBRILE. SLEPT MOST OF THE SHIFT. CALL LIGHT IN REACH. BED IN LOWEST POSITION. WILL CONTINUE TO MONITOR UNTIL DAY SHIFT NURSE ASSUMES CARE.
[2024-06-11 05:47] LABS: BASOPHILS PERCENT AUTO 1 % (0-2); EOSINOPHILS ABSOLUTE AUTO 0.68 K/mm3 (0.00-0.68); EOSINOPHILS PERCENT AUTO 5 % (0-6); Hematocrit 32.6 % (33.0-51.0); Hemoglobin 10.5 g/dL (11.5-16.0); IMMATURE GRAN ABSOLUTE AUTO 0.09 K/mm3 (0.00-0.10); IMMATURE GRAN PERCENT AUTO 1 % (0-1); LYMPHOCYTES PERCENT AUTO 20 % (21-46); MONOCYTES ABSOLUTE AUTO 1.85 K/mm3 (0.16-1.47); MONOCYTES PERCENT AUTO 13 % (4-13); Mean Corpuscular HGB Conc 32.2 g/dL (31.5-36.5); Mean Corpuscular Volume 84 fL (80-100); Mean Platelet Volume 9.6 fL (9.1-12.4); NEUTROPHILS ABSOLUTE AUTO 9.08 K/mm3 (1.96-9.15); NEUTROPHILS PERCENT AUTO 62 % (41-73); Platelet Count 388 K/mm3 (150-400); RDW Coefficient Variation 15.3 % (11.7-14.2); RDW Standard Deviation 46.4 fL (35.1-46.3); Red Blood Cell Count 3.89 M/mm3 (3.80-5.20)
[2024-06-11 06:17] LABS: Bun/Creatinine Ratio 18.3 (12.0-20.0); Creatinine, Blood 0.77 mg/dL (0.40-1.00); Potassium, Blood 3.8 mmol/L (3.5-5.5)
[2024-06-11 07:47] VITALS: BP 122/52
[2024-06-11] MEDS ORDERED: Enoxaparin 40 MG/0.4 ML SYR SC SCH (09:00)
--- NOTE | 2024-06-11 16:45 | NUR ---
PT DISCHARGED TO HOME WITH [facility]. PT EDUCATED ON AND GIVEN DISCHARGE INFORMATION AND ALL VALUABLES SENT HOME WITH THE PT.
[2024-06-12] MEDS ORDERED: Enoxaparin 30 MG/0.3 ML SYR SC SCH (09:00)
== END 2024-06-11 16:36 | disposition home health service (06) ==
LOC: ER 18:48 → MEDS 18:49 → ERHOLD 18:49 → MEDS 06-10 08:15
PROVIDERS: Emergency Medicine; Family Medicine; Student in an Organized Health Care Education/Training Program; ADMIT Student in an Organized Health Care Education/Training Program
DX: M25.551 Pain in right hip (principal); G89.29 Other chronic pain; R33.9 Retention of urine, unspecified; D72.829 Elevated white blood cell count, unspecified; M16.11 Unilateral primary osteoarthritis, right hip; E03.9 Hypothyroidism, unspecified; K21.9 Gastro-esophageal reflux disease without esophagitis; I25.2 Old myocardial infarction; R64 Cachexia; Z68.21 Body mass index [BMI] 21.0-21.9, adult; Z79.02 Long term (current) use of antithrombotics/antiplatelets; Z79.899 Other long term (current) drug therapy; Z90.710 Acquired absence of both cervix and uterus; Z88.6 Allergy status to analgesic agent; Z90.49 Acquired absence of other specified parts of digestive tract; Z66 Do not resuscitate
CPT/HCPCS: 0241U; 36415; 51702; 71046; 72158; 72170; 72192; 73552; 80048; 80053; 81003; 84484; 85025; 93005; 93010; 94762; 96372; 96374-59; 96376; 97110; 97162; 97167; 97530; 99285-25; A9270; A9579; G0378; J1650; J3010; P9612

== ENCOUNTER 2024-07-27 06:30 | Emergency (ER) | payer MEDICARE, OTHER ==
[~2024-07-27] VITALS: Ht 152.4 cm; Wt 98.0 kg
[~2024-07-27 06:30] MED LIST changes: +AMLO10 PO; +ARTHRITIS PAIN150 GM TOP; +MIRT15 PO; +NARCAN4 M1; +TIZA4 PO
[2024-07-27] MEDS ORDERED: Morphine Sulfate 4 MG/1 ML Injection IV ONE (09:20)
[2024-07-27 10:31] VITALS: BP 135/68
[2024-07-27] MEDS ORDERED: OxyCODONE HCL 5 MG TAB PO ONE (11:10)
== END 2024-07-27 13:19 | disposition home or self-care (01) ==
LOC: ER 06:30
DX: M19.012 Primary osteoarthritis, left shoulder (principal); E03.9 Hypothyroidism, unspecified; K21.9 Gastro-esophageal reflux disease without esophagitis; I25.2 Old myocardial infarction; Z79.02 Long term (current) use of antithrombotics/antiplatelets; Z79.899 Other long term (current) drug therapy; Z88.6 Allergy status to analgesic agent
CPT/HCPCS: 73030; 93005; 93010; 96374; 99284-25; A9270; J2270

== ENCOUNTER 2024-08-17 09:41 | Emergency (ER) | payer MEDICARE, OTHER ==
[~2024-08-17] VITALS: Ht 152.4 cm; Wt 42.2 kg
[2024-08-17] MEDS ORDERED: Acetaminophen 325 MG TABLET PO ONE (12:40)
[2024-08-17 13:00] VITALS: BP 94/59
== END 2024-08-17 14:29 | disposition home or self-care (01) ==
LOC: ER 09:41
DX: S16.1XXA Strain of muscle, fascia and tendon at neck level, initial encounter (principal); E03.9 Hypothyroidism, unspecified; K21.9 Gastro-esophageal reflux disease without esophagitis; M19.90 Unspecified osteoarthritis, unspecified site; W06.XXXA Fall from bed, initial encounter; Z79.02 Long term (current) use of antithrombotics/antiplatelets; Z79.899 Other long term (current) drug therapy; Z88.6 Allergy status to analgesic agent
CPT/HCPCS: 70450; 72125; 73502; 99284-25; A9270

== ENCOUNTER 2024-09-04 18:55 | Emergency (ER) | payer MEDICARE, OTHER ==
[~2024-09-04] VITALS: Ht 162.6 cm; Wt 40.8 kg
[2024-09-04 21:29] LABS: BASOPHILS ABSOLUTE AUTO 0.11 K/mm3 (0.00-0.23); BASOPHILS PERCENT AUTO 1 % (0-2); EOSINOPHILS ABSOLUTE AUTO 0.07 K/mm3 (0.00-0.68); EOSINOPHILS PERCENT AUTO 0 % (0-6); Hematocrit 31.2 % (33.0-51.0); Hemoglobin 10.3 g/dL (11.5-16.0); IMMATURE GRAN PERCENT AUTO 2 % (0-1); LYMPHOCYTES ABSOLUTE AUTO 1.97 K/mm3 (0.84-5.20); LYMPHOCYTES PERCENT AUTO 10 % (21-46); MONOCYTES ABSOLUTE AUTO 1.87 K/mm3 (0.16-1.47); MONOCYTES PERCENT AUTO 9 % (4-13); Mean Corpuscular HGB 25.9 pg (26.0-34.0); Mean Corpuscular Volume 78 fL (80-100); Mean Platelet Volume 8.7 fL (9.1-12.4); NEUTROPHILS ABSOLUTE AUTO 15.56 K/mm3 (1.96-9.15); NEUTROPHILS PERCENT AUTO 78 % (41-73); Platelet Count 807 K/mm3 (150-400); RDW Coefficient Variation 16.2 % (11.7-14.2); RDW Standard Deviation 46.7 fL (35.1-46.3); Red Blood Cell Count 3.98 M/mm3 (3.80-5.20); White Blood Cell Count 19.98 K/mm3 (4.00-11.30)
[2024-09-04 21:56] LABS: Albumin, Blood 2.1 g/dL (3.4-5.0); Albumin/Globulin Ratio 0.4 (0.8-1.8); Bilirubin, Total 0.4 mg/dL (0.1-1.0); Bun/Creatinine Ratio 34.4 (12.0-20.0); Calcium, Blood 9.5 mg/dL (8.5-10.1); Creatinine, Blood 0.76 mg/dL (0.40-1.00); Magnesium, Blood 2.3 mg/dL (1.6-2.4); Potassium, Blood 3.9 mmol/L (3.5-5.5); Total Protein, Blood 7.1 g/dL (6.4-8.2)
[2024-09-04 22:09] LABS: Influenza A, PCR NEGATIVE (NEGATIVE); Influenza B, PCR NEGATIVE (NEGATIVE); Resp Syncytial Virus, PCR NEGATIVE (NEGATIVE); SARS-Cov-2 (COVID-19) PCR, MMC NEGATIVE (NEGATIVE)
[2024-09-04] MEDS ORDERED: CefTRIAXone Sodium 2,000 MG in NS 100 ML IV ONE (22:20)
[2024-09-05 00:19] LABS: Source, Urine Clean Catch
[2024-09-05] MEDS ORDERED: OxyCODONE HCL 5 MG TAB PO ONE (00:25)
[2024-09-05 00:31] LABS: Bilirubin, Urine Neg (Neg); Blood, Urine 5+ (Neg); Glucose Qualitative, Urine Neg (Neg); Ketones, Urine Neg (Neg); Leukocyte Esterase, Urine 3+ (Neg); Nitrite, Urine Neg (Neg); Protein, Urine 3+ (Neg); Specific Gravity, Urine 1.015 (1.003-1.022); Urobilinogen, Urine 2+ (Normal)
[2024-09-05 00:48] LABS: Appearance, Urine Hazy (Clear); Color, Urine Yellow (P-Yellow)
[2024-09-05 00:50] LABS: Bacteria Many /hpf; Red Blood Cells, Urine TNTC /hpf (0-2); Squamous Epithelial Cells Mod /hpf (Few); White Blood Cells, Urine 50-100 /hpf (0-5)
[2024-09-05] MEDS ORDERED: REMERON1510 PO (12:47)
[2024-09-05] MEDS ORDERED: DIAZEPAM2 M2 PO (12:47)
[2024-09-05] MEDS ORDERED: TIZANIDINE HCL213 PO (12:47)
[2024-09-05] MEDS ORDERED: NEURONTIN300 MG PO (12:47)
[2024-09-05] MEDS ORDERED: PLAVIX75 MG PO (12:48)
[2024-09-05] MEDS ORDERED: OxyCODONE 5 mg/Acetamin 325 mg TABLET PO PRN (14:30)
[2024-09-05] MEDS ORDERED: CEFD300 PO (17:10)
[2024-09-05 17:50] VITALS: BP 124/75
== END 2024-09-05 17:45 | disposition home or self-care (01) ==
LOC: ER 18:55
PROVIDERS: Emergency Medicine
DX: R53.81 Other malaise (principal); N39.0 Urinary tract infection, site not specified; E03.9 Hypothyroidism, unspecified; K21.9 Gastro-esophageal reflux disease without esophagitis; M19.90 Unspecified osteoarthritis, unspecified site; I25.2 Old myocardial infarction; Z74.01 Bed confinement status; Z88.6 Allergy status to analgesic agent; Z79.01 Long term (current) use of anticoagulants; Z79.899 Other long term (current) drug therapy
CPT/HCPCS: 0241U; 36415; 51702; 70450; 72125; 72192; 73552; 73590; 80053; 81001; 83605; 83735; 83880; 84484; 85025; 87040; 87086; 93005; 93010; 96365-59; 99285-25; A9270; J0696